=== PATIENT | male | born 1955 | race Caucasian/White ===

== ENCOUNTER 2016-09-20 12:12 | Emergency (ER) | payer BC ==
[2016-09-20] MEDS ORDERED: NS 0.9% 1000 ML* 1,000 ML IV ONE (13:05)
[2016-09-20 13:13] LABS: Hematocrit 39 % (42-52); Hemoglobin 13.2 g/dl (14.0-18.0); Mean Corpuscular HGB Conc 34 g/dl (31-36); Mean Corpuscular Hemoglobin 31 pg (27-31); Mean Corpuscular Volume 91 fL (80-94); Mean Platelet Volume 8 um3 (7.4-10.4); Red Blood Count 4.31 10^6/ul (4.0-5.4); Red Cell Distribution Width 14 % (10.5-15); White Blood Count 12.2 10^3/ul (3.5-10.8)
[2016-09-20 13:14] LABS: Comments Flag Yes
[2016-09-20 13:15] LABS: Add Diff/Slide Review? Slide Review Added
--- NOTE | 2016-09-20 13:19 | RAD ---
INDICATION: Erythema and pain at the right foot and distal leg COMPARISON: None. TECHNIQUE: 3 views of the right ankle were obtained. FINDINGS: The bones are normal alignment. Joint spaces appear maintained. Degenerative changes include enthesophyte formation at the calcaneal tubercle at the origin of the plantar fascia. No fracture is seen. IMPRESSION: NO RADIOGRAPHICALLY APPARENT ACUTE ABNORMALITY OF THE RIGHT LOWER LEG OR ANKLE. If the patient's symptoms persist, follow-up imaging is recommended.
--- NOTE | 2016-09-20 13:27 | ED ---
Lower Extremity - HPI Summary HPI Summary: 61 male presents with complaints of redness, swelling, and pain of his right lower extremity that he noticed Thursday 09/14 however got worse this past Wednesday. Patient states he has been unable to comfortabley walk due to the pain. It has become hard for him to take more than 5 steps. He also complains of pain when hanging his leg over a chair or bed. He Denies any PMHx besides thyroidectomy and walking pneumonia ~1 month ago.. He denies any recent trauma or injury to his ankle. He has never had this before. He has been battling an infection on the bottom of his feet with his PCP that itches so bad he has scabbed wounds on he bottom of his feet. He does not know he name of the medication he was using on his feet. He is unsure if that caused an infection. Admits to recent travel back and forth to [place] in a car twice over this past Wednesday and Wednesday. Denies prolonged bed rest and prior DVT. Resting makes the pain better. He tried taking ibuprofen without any relief. Denies fever/chills. - History of Current Complaint Chief Complaint: EDExtremityLower Stated Complaint: RT ANKLE SWELLING/RED Time Seen by Provider: 09/20/16 12:39 Hx Obtained From: Patient Onset of Pain: Days Severity Initially: Mild Severity Currently: Mild Pain Intensity: 2 Pain Scale Used: 0-10 Numeric Timing: Intermittent Location: Is Discrete @ - left lower extremity Character Of Pain: Aching, Spasmodic, Burning Associated Signs And Symptoms: Positive: Swelling, Redness Aggravating Factor(s): Standing, Ambulation, Movement Alleviating Factor(s): Rest, Elevation Able to Bear Weight: Yes - Risk Factors Gout Risk Factors: Age Over 40 DVT Risk Factors: Recent Travel - Allergies/Home Medications Allergies/Adverse Reactions: Allergies Allergy/AdvReac Type Severity Reaction Status Date / Time No Known Allergies Allergy Verified 09/20/16 12:18 Home Medications: Home Medications Loratadine [Claritin 5 MG CHEW] 1 tab PO DAILY 09/20/16 [History Confirmed 09/20] PMH/Surg Hx/FS Hx/Imm Hx Endocrine/Hematology History: Reports: Hx Thyroid Disease Denies: Hx Diabetes Cardiovascular History: Denies: Hx Hypertension Respiratory History: Denies: Hx Asthma - Cancer History Cancer Type, Location and Year: thyriod - Surgical History Surgery Procedure, Year, and Place: tonsillectomy, corrective eye surgery - Immunization History Immunizations Up to Date: Yes Infectious Disease History: No Infectious Disease History: Denies: Traveled Outside the [place] in Last 30 Days - Family History Known Family History: Positive: Cardiac Disease - Social History Alcohol Use: Daily Alcohol Amount: 5 beers a day Substance Use Type: Reports: None Smoking Status (MU): Never Smoked Tobacco Review of Systems Constitutional: Negative Eyes: Negative ENT: Negative Cardiovascular: Negative Respiratory: Negative Gastrointestinal: Negative Genitourinary: Negative Positive: Arthralgia, Myalgia, Edema - LLE Positive: Rash Neurological: Negative Psychological: Normal All Other Systems Reviewed And Are Negative: Yes Physical Exam Triage Information Reviewed: Yes Vital Signs On Initial Exam: Initial Vitals Temp Pulse Resp BP Pulse Ox 99.5 F 105 16 143/81 100 09/20/16 12:13 09/20/16 12:13 09/20/16 12:13 09/20/16 12:13 09/20/16 12:13 tachycardia, fever noted. Vital Signs Reviewed: Yes Appearance: Positive: Well-Appearing, No Pain Distress, Well-Nourished Skin: Positive: Warm, Skin Color Reflects Adequate Perfusion - < 2 second cap refill, Dry, Erythema @ - LLE and edematous, no discharge, skin is hot to touch and tight., Other - scabbed over wounds on bilateral bottom of feet. dry and excoriated.. Negative: Cold, Numb, Cyanosis @, Pale Head/Face: Positive: Normal Head/Face Inspection Eyes: Positive: Normal, Conjunctiva Clear ENT: Positive: Normal ENT inspection, Hearing grossly normal Neck: Positive: Supple, Nontender, No Lymphadenopathy Respiratory/Lung Sounds: Positive: Clear to Auscultation, Breath Sounds Present Cardiovascular: Positive: Normal, RRR, Pulses are Symmetrical in both Upper and Lower Extremities - 2+ pedal pulses Abdomen Description: Positive: Nontender Bowel Sounds: Positive: Present Musculoskeletal: Positive: Normal, Strength/ROM Intact - sensation intact., Pain @ - LLE, Edema Right. Negative: Limited @, Interruption @ Neurological: Positive: Normal, Sensory/Motor Intact, Alert, Oriented to Person Place, Time, CN Intact II-III, Reflexes Intact, NV Bundle Intact Distally, Normal Gait Psychiatric: Positive: Normal, Affect/Mood Appropriate Diagnostics - Vital Signs Vital Signs Temp Pulse Resp BP Pulse Ox 09/20/16 12:13 99.5 F 105 16 143/81 100 - Laboratory Lab Results: Lab Results 09/20/16 Range/Units 13:04 WBC 12.2 H (3.5-10.8) 10^3/ul RBC 4.31 (4.0-5.4) 10^6/ul Hgb 13.2 L (14.0-18.0) g/dl Hct 39 L (42-52) % MCV 91 (80-94) fL MCH 31 (27-31) pg MCHC 34 (31-36) g/dl RDW 14 (10.5-15) % Plt Count 324 (150-450) 10^3/ul MPV 8 (7.4-10.4) um3 Neut % (Auto) 69.9 (38-83) % Lymph % (Auto) 11.7 L (25-47) % Cascade % (Auto) 14.6 H (1-9) % Eos % (Auto) 2.7 (0-6) % Baso % (Auto) 1.1 (0-2) % Absolute Neuts (auto) 8.5 H (1.5-7.7) 10^3/ul Absolute Lymphs (auto) 1.4 (1.0-4.8) 10^3/ul Absolute Monos (auto) 1.8 H (0-0.8) 10^3/ul Absolute Eos (auto) 0.3 (0-0.6) 10^3/ul Absolute Basos (auto) 0.1 (0-0.2) 10^3/ul Absolute Nucleated RBC 0 10^3/ul Nucleated RBC % 0 Result Diagrams: 09/20/16 13:04 09/20/16 13:04 Lab Statement: Any lab studies that have been ordered have been reviewed, and results considered in the medical decision making process. - Radiology right ankle Xray Interpretation: No Acute Changes - NO RADIOGRAPHICALLY APPARENT ACUTE ABNORMALITY OF THE RIGHT LOWER LEG OR ANKLE. Radiology Interpretation Completed By: Radiologist - Ultrasound No standard instances Ultrasound Interpretation: No Acute Changes - No sonographic evidence of deep vein thrombosis. Ultrasound Interpretation Completed By: Radiologist Re-Evaluation - Re-Evaluation First Eval Re-Evaluation Time: 14:30 Change: Unchanged - patient was still feeling fine without pain and is in agreement with plan Lower Extremity Course/Dx - Course Course Of Treatment: Was not in pain while laying in bed and denied pain management at this time. Labs obtained, slight WBC elevation. Fluids given. U/S and Xray of RLE negative. Appears to be suffering from cellulitis with chronic plantar foot wounds b/l being the possible source of infection. Given dose of Ancef while in ED. Continue keflex antibiotic at home x 10 days. Aware of worsening signs and symptoms. - Diagnoses Differential Diagnosis/HQI/PQRI: Positive: Cellulitis, DVT, Gout, Infection, Phlebitis, Septic Arthritis, Sprain, Strain Provider Diagnoses: Cellulitis of right lower extremity - Physician Notifications Discussed Care of Patient With: Dr Alvarenga Discharge - Discharge Plan Condition: Stable Disposition: HOME Prescriptions: Cephalexin CAP* [Keflex CAP*] 500 mg PO QID #40 cap Patient Education Materials: Cellulitis (ED) Referrals: Session Troy REIS [Primary Care Provider] - Additional Instructions: Take prescribed antibiotics starting tomorrow for the next 10 days. Recommend eating kyrgyz yogurt or taking probiotic in between antibiotic doses. Ibuprofen or Aleve to help with pain. If redness, swelling or pain increases or fever/chills is over 104F after 48 hours of taking medications please return or seek medical attention promptly. You should see some improvement within 48 hours. Keep area clean and dry. Discuss with your PCP and podiatry about foot condition to prevent future infection. Drink plenty of fluids.
[2016-09-20 13:28] LABS: BUN/Creatinine Ratio 21.6 (8-20); Calcium 9.3 mg/dL (8.6-10.3); EGFR African American 138.8 (>60); EGFR Non-African American 107.9 (>60); Potassium 4.4 mmol/L (3.5-5.0)
--- NOTE | 2016-09-20 14:14 | RAD ---
HISTORY: Right lower extremity pain and swelling TECHNIQUE: Multiple transverse and longitudinal ultrasound images were obtained of the veins of the right lower extremity using grayscale, color Doppler, and spectral Doppler imaging with and without compression and with augmentation. FINDINGS: VEINS: The common femoral vein, deep femoral vein, femoral vein and popliteal vein are compressible throughout their course, with normal flow on color Doppler imaging and normal response to augmentation on spectral Doppler imaging. SOFT TISSUES: Grossly normal. No large popliteal fossa cyst was identified. IMPRESSION: No sonographic evidence of deep vein thrombosis.
[2016-09-20] MEDS ORDERED: ceFAZolin 1 GM in Dextrose (*) 1 GM/50 ML BAG IVPB ONE (14:37)
[2016-09-20] MEDS ORDERED: Acetaminophen TAB* 325 MG PO ONE (15:17)
[2016-09-20 16:18] VITALS: BP 133/76
== END 2016-09-20 15:30 | disposition home or self-care (01) ==
LOC: ED 12:12
DX: L03.115 Cellulitis of right lower limb (principal)
CPT/HCPCS: 36415; 80048; 83605; 85025; 99284; A9270-GY; J0690

== ENCOUNTER 2019-09-02 10:16 | Observation (INO) | payer SELFPAY ==
--- NOTE | 2019-09-02 10:35 | ED ---
Respiratory - HPI Summary HPI Summary: 63 year old M with hx pneumonia arriving via private car to [facility] complains of increasing shortness of breath and cough worse with exertion since Jul 2019. Patient started feeling sick jul. He has been going to his primary care provider. Dx bronchitis and walking pneumonia 08/14. Prescribed 10 day course of antibiotics after which he was not feeling any better. He went back to his primary care provider who prescribed another course of antibiotics which he finished 2 days ago. He is still not feeling better. He is unable to take a full breath. Patient reports light headedness and non-radiating chest pain aggravated by palpation. Patient denies wheezing, pain or swelling in BLE, abdominal pain. He had CXR done earlier this week done and hasn't heard about results yet. He also had EKG done earlier this week which was normal. The patient rates the pain 4/10 in severity. Symptoms alleviated by nothing. Medications reviewed. No hx asthma, COPD, cardiac, DVT, PE. Patient is a non- smoker. He is around his girlfriend who smokes a lot. - History of Current Complaint Chief Complaint: EDUpperRespComplaint Stated Complaint: SOB/BREATHING PROBLEMS PER PT Time Seen by Provider: 09/02/19 10:26 Hx Obtained From: Patient Onset/Duration: Lasting Weeks - Jul 2019, Still Present Timing: Constant Current Severity: Mild Pain Intensity: 4 Aggravating Factor(s): Exertion Alleviating Factor(s): Nothing - Allergy/Home Medications Allergies/Adverse Reactions: Allergies Allergy/AdvReac Type Severity Reaction Status Date / Time No Known Allergies Allergy Verified 09/20/16 12:18 Home Medications: Home Medications Levothyroxine 150 mcg PO DAILY 07/05/14 [History Confirmed 09/02/19] PMH/Surg Hx/FS Hx/Imm Hx Endocrine/Hematology History: Reports: Hx Thyroid Disease Denies: Hx Diabetes Cardiovascular History: Denies: Hx Deep Vein Thrombosis, Hx Hypertension Respiratory History: Reports: Hx Pneumonia Denies: Hx Asthma, Hx Chronic Obstructive Pulmonary Disease (COPD), Hx Pulmonary Edema - Cancer History Cancer Type, Location and Year: thyriod - Surgical History Surgery Procedure, Year, and Place: tonsillectomy, corrective eye surgery Infectious Disease History: No Infectious Disease History: Denies: Traveled Outside the US in Last 30 Days - Family History Known Family History: Positive: Cardiac Disease - Social History Alcohol Use: Daily Alcohol Amount: 5 beers a day Substance Use Type: Reports: None Hx Tobacco Use: No Smoking Status (MU): Never Smoked Tobacco Review of Systems Positive: Chest Pain Respiratory: Negative - wheezing Positive: Shortness Of Breath, Cough Negative: Abdominal Pain Musculoskeletal: Negative - pain or swelling in BLE Neurological/Mental Status: Other - light headedness All Other Systems Reviewed And Are Negative: Yes Physical Exam - Summary Physical Exam Summary: Constitutional: Well-developed, Well-nourished, Alert. (-) Distressed Skin: Warm, Dry HENT: Normocephalic; Atraumatic Eyes: Conjunctiva normal Neck: Musculoskeletal ROM normal neck. (-) JVD, (-) Stridor, (-) Tracheal deviation Cardio: Rhythm regular, rate normal, Heart sounds normal; Intact distal pulses; The pedal pulses are 2+ and symmetric. Radial pulses are 2+ and symmetric. (-) Murmur Pulmonary/Chest wall: Effort normal. (-) Respiratory distress, (-) Wheezes, (-) Rales Abd: Soft, (-) tenderness, (-) Distension, (-) Guarding, (-) Rebound Musculoskeletal: (-) Edema Lymph: (-) Cervical adenopathy Neuro: Alert, Oriented x3 Psych: Mood and affect Normal Triage Information Reviewed: Yes Vital Signs On Initial Exam: Initial Vitals Temp Pulse Resp BP Pulse Ox 98.7 F 94 20 126/91 92 09/02/19 10:19 09/02/19 10:19 09/02/19 10:19 09/02/19 10:19 09/02/19 10:19 Vital Signs Reviewed: Yes Procedures - Sedation Patient Received Moderate/Deep Sedation with Procedure: No Diagnostics - Vital Signs Vital Signs Temp Pulse Resp BP Pulse Ox 09/02/19 10:19 98.7 F 94 20 126/91 92 - Laboratory Result Diagrams: 09/02/19 10:46 09/02/19 10:46 Lab Statement: Any lab studies that have been ordered have been reviewed, and results considered in the medical decision making process. - Radiology CXR Radiology Interpretation Completed By: Radiologist - IMPRESSION: #. Suboptimal inspiration with resulting crowding of the pulmonary markings based on comparison with the prior exam. No compelling evidence for pneumonia. ED physician has reviewed this imaging report. - CT CHEST CT Interpretation Completed By: Radiologist - IMPRESSION: #. The constellation of findings favors mild bronchopneumonia. #.Upper normal 1.0 cm short axis precarinal lymph node and similar RIGHT suprahilar lymph node enlargement compared with the 2015 CT. ED physician has reviewed this imaging report. - EKG 1043 Cardiac Rate: NL - 84 BPM EKG Rhythm: Sinus Rhythm Summary of EKG Findings: No ischemic changes. ED physician has reviewed and interpreted this EKG. Disposition - Course Course Of Treatment: 63 y/o M with recent dx bronchitis and pneumonia presents with increasing shortness of breath and cough worse with exertion since mid Jul 2019. He has been going to his primary care provider who has prescribed him 2 courses of antibiotics. Patient isn't feeling better and is unable to take a full breath. He reports light headedness and non-radiating chest pain aggravated by palpation. He had CXR and EKG done earlier this week. Patient is a non-smoker. He is around his girlfriend who smokes a lot. Physical exam unremarkable. Bloodwork results with no significant abnormalities except for WBC 15.7, RBC 4.07, Hgb 13.0, MCH 32, platelet 482, absolute neuts 12.9, absolute lymphs 0.9, absolute monos 1.2, ALT 53, alkaline phosphatase 117. An EKG shows NSR 84 BPM and no ischemic changes. CXR shows Suboptimal inspiration with resulting crowding of the pulmonary markings based on comparison with the prior exam. No compelling evidence for pneumonia. Chest CT shows #. The constellation of findings favors mild bronchopneumonia. #.Upper normal 1.0 cm short axis precarinal lymph node and similar RIGHT suprahilar lymph node enlargement compared with the 2015 CT. In the ED course, the patient was given Duoneb, ceftriaxone. Spoke to Dr. Hurtado. She agrees to admit patient. - Diagnoses Provider Diagnoses: Bronchopneumonia, Hypoxia - Physician Notifications Discussed Care Of Patient With: Ashlyn Hurtado Time Discussed With Above Provider: 13:10 Instructed by Provider To: Admit As Inpatient Discharge ED - Sign-Out/Discharge Documenting (check all that apply): Patient Departure - Discharge Plan Condition: Stable Disposition: ADMITTED TO [facility] Referrals: Troy Torres PA [Primary Care Provider] - - Billing Disposition and Condition Condition: STABLE Disposition: Admitted to [facility] - Attestation Statements Document Initiated by Mikeibjade: Yes Documenting Scribe: Gini Romano Provider For Whom [place] is Documenting (Include Credential): Donato Ronquillo DO Scribe Attestation: IGini, scribed for Donato Ronquillo DO on 09/02/19 at 1347. Scribe Documentation Reviewed: Yes Provider Attestation: The documentation as recorded by the mikeibGini hansen accurately reflects the service I personally performed and the decisions made by , Donato Ronquillo DO Status of Scribe Document: Viewed
[2019-09-02] MEDS ORDERED: Albuterol/Ipratropium NEB.SOL* Albuterol 2.5 MG/Ipratropium 0.5 MG 3 ML INH ONE (10:38)
[2019-09-02 10:54] LABS: ABS Basophils 0.1 10^3/ul (0-0.2); ABS Eosinophils 0.5 10^3/ul (0-0.6); ABS Lymphocytes 0.9 10^3/ul (1.0-4.8); ABS Monocytes 1.2 10^3/ul (0-0.8); ABS Neutrophils 12.9 10^3/ul (1.5-7.7); Eosinophil % 3.2 %; Hematocrit 38 % (42-52); Lymphocyte % 6.1 %; Mean Corpuscular HGB Conc 34 g/dL (31-36); Mean Corpuscular Hemoglobin 32 pg (27-31); Mean Corpuscular Volume 94 fL (80-94); Mean Platelet Volume 7.8 fL (7.4-10.4); Platelet Count 482 10^3/uL (150-450); Red Blood Count 4.07 10^6 /uL (4.18-5.48); Red Cell Distribution Width 14 % (10-15); White Blood Count 15.7 10^3/uL (3.5-10.8)
[2019-09-02 11:12] LABS: Albumin/Globulin Ratio 1.3 (1-3); BUN/Creatinine Ratio 14.3 (8-20); Calcium 9.4 mg/dL (8.6-10.3); EGFR African American 102.1 (>60); EGFR Non-African American 84.4 (>60); Globulin 3.2 g/dL (2-4); Potassium 4.3 mmol/L (3.5-5.0); Total Bilirubin 0.6 mg/dL (0.2-1.0); Total Protein 7.2 g/dL (6.4-8.9)
[2019-09-02 11:14] LABS: Troponin I 0.01 ng/mL (<0.03)
[2019-09-02] MEDS ORDERED: cefTRIAXone(*) 1 GM in NS 0.9% 50 ML* 50 ML IVPB ONE (11:25)
[2019-09-02] MEDS ORDERED: Iohexol 300* (CONTRAST) 10 ML SDV IV ONE (11:54)
[2019-09-02] MEDS ORDERED: Ondansetron INJ* 2 MG/ML VIAL IV PRN (13:11)
[2019-09-02] MEDS ORDERED: Acetaminophen TAB* 325 MG PO PRN (13:11)
[2019-09-02] MEDS ORDERED: Benzonatate CAP* 100 MG PO PRN (13:11)
[2019-09-02] MEDS ORDERED: Albuterol/Ipratropium NEB.SOL* Albuterol 2.5 MG/Ipratropium 0.5 MG 3 ML INH PRN (13:17)
[2019-09-02] MEDS: Levofloxacin 750 MG IVPREMIX(* 750 MG/150 ML BAG IVPB SCH (13:29)
[2019-09-02 14:01] LABS: TSH (Thyroid Stimulating Horm) 0.02 mcIU/mL (0.34-5.60)
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
[2019-09-02] MEDS: Enoxaparin(*) 40 MG/0.4 ML SYR SUBCUT SCH (16:23)
[2019-09-02] MEDS: guaiFENesin ER TAB 600 MG PO SCH (20:08)
[2019-09-02] MEDS ORDERED: Melatonin 3 MG TAB PO PRN (21:00)
[2019-09-03] MEDS ORDERED: Levothyroxine TAB* 125 MCG TAB PO SCH (06:00)
[2019-09-03] MEDS ORDERED: Levothyroxine TAB* 150 MCG TAB PO SCH (06:00)
[2019-09-03 06:06] LABS: ABS Eosinophils 0.7 10^3/ul (0-0.6); ABS Monocytes 0.9 10^3/ul (0-0.8); ABS Neutrophils 5.8 10^3/ul (1.5-7.7); Eosinophil % 8.6 %; Hematocrit 34 % (42-52); Hemoglobin 11.7 g/dL (14.0-18.0); Lymphocyte % 11.4 %; Mean Corpuscular HGB Conc 34 g/dL (31-36); Mean Corpuscular Hemoglobin 32 pg (27-31); Mean Corpuscular Volume 93 fL (80-94); Platelet Count 406 10^3/uL (150-450); Red Blood Count 3.67 10^6 /uL (4.18-5.48); Red Cell Distribution Width 14 % (10-15); White Blood Count 8.5 10^3/uL (3.5-10.8)
[2019-09-03 06:21] LABS: C Reactive Protein 121.07 mg/L (<8.01); Calcium 8.7 mg/dL (8.6-10.3); EGFR African American 116.8 (>60); EGFR Non-African American 96.6 (>60)
[2019-09-03] MEDS: guaiFENesin ER TAB 600 MG PO SCH ×2 (07:19→20:10)
[2019-09-03 07:51] LABS: Free T4 1.3 ng/dL (0.61-1.12)
[2019-09-03] MEDS ORDERED: NS 0.9% 1000 ML** 1,000 ML IV SCH (08:30)
--- NOTE | 2019-09-03 08:49 | PN ---
Subjective Date of Service: 09/03/19 Interval History: Patient is feeling better than he did yesterday. Still mildly short of breath at rest. Frequently coughing, bringing up thick dark brown sputum. Using incentive spirometer. Titrated from 5 to 3.5L via nasal cannula. Reports drinking 4-6 alcoholic drinks a day. Denies lightheadedness, dizziness, chest pain, palpitations, abdominal pain, nausea, vomiting, issues moving bowel or bladder. Family History: Unchanged from Admission Social History: Unchanged from Admission Past Medical History: Unchanged from Admission Objective Active Medications: Acetaminophen (Tylenol Tab*) 650 mg PO Q6H PRN PRN Reason: MILD PAIN or TEMP > 100.4 Albuterol/Ipratropium (Duoneb (Albuterol 2.5 Mg/Ipratropium 0.5 Mg)) 1 neb INH Q6H PRN PRN Reason: SOB/WHEEZING Benzonatate (Tessalon Cap*) 100 mg PO BID PRN PRN Reason: COUGH Last Admin: 09/03/19 06:00 Dose: 100 mg Enoxaparin Sodium (Lovenox(*)) 40 mg SUBCUT Q24H [facility] Last Admin: 09/02/19 16:23 Dose: 40 mg Guaifenesin (Mucinex*) 1,200 mg PO BID [facility] Last Admin: 09/03/19 07:19 Dose: 1,200 mg Levofloxacin/Dextrose (Levaquin 750 Mg Ivpremix(*)) 750 mg in 150 mls @ 100 mls /hr IVPB Q24H [facility]; Protocol Last Admin: 09/02/19 13:29 Dose: 100 mls/hr Sodium Chloride (Ns 0.9% 1000 Ml) 1,000 mls @ 100 mls/hr IV PER RATE [facility] Stop: 09/03/19 18:29 Influenza Virus Vaccine (Fluarix Quad [id number] Syr) 0.5 ml IM .ONCE ONE Stop: 09/03/19 09:01 Last Admin: 09/03/19 07:19 Dose: 0.5 ml Levothyroxine Sodium (Synthroid Tab*) 100 mcg PO 0600 [facility] Melatonin (Melatonin) 3 mg PO BEDTIME PRN PRN Reason: INSOMNIA Last Admin: 09/02/19 20:08 Dose: 3 mg Ondansetron HCl (Zofran Inj*) 4 mg IV Q6H PRN PRN Reason: NAUSEA Vital Signs - 8 hr 09/03/19 09/03/19 03:15 07:19 Temperature 99.7 F 99.4 F Pulse Rate 78 82 Respiratory 16 20 Rate Blood Pressure 92/55 102/62 (mmHg) O2 Sat by Pulse 95 96 Oximetry Oxygen Devices in Use Now: Nasal Cannula - 3.5L, OxyMask Appearance: This is a well developed gentleman seen sitting up in bed, no acute distress. Eyes: No Scleral Icterus, PERRLA Ears/Nose/Mouth/Throat: NL Teeth, Lips, Gums, Clear Oropharnyx, Mucous Membranes Moist Neck: NL Appearance and Movements; NL JVP, Trachea Midline Respiratory: Symmetrical Chest Expansion and Respiratory Effort, - - Fine crackles to right lower and middle lobes. Cardiovascular: NL Sounds; No Murmurs; No JVD, RRR, No Edema Abdominal: NL Sounds; No Tenderness; No Distention Lymphatic: No Cervical Adenopathy Extremities: No Edema, No Clubbing, Cyanosis Skin: No Rash or Ulcers, No Nodules or Sclerosis Neurological: Alert and Oriented x 3 Lines/Tubes/Other Access: Clean, Dry and Intact Peripheral IV Result Diagrams: 09/03/19 05:25 09/03/19 05:25 Microbiology and Other Data: Microbiology 09/02/19 18:00 Gram Stain - Final Sputum 09/02/19 18:00 Legionella Urinary Antigen - Final Urine Negative Legionella Antigen Streptococcus pneumoniae Ag Screen - Final Negative S. pneumo Antigen Assess/Plan/Problems-Billing Assessment: This is a 63yo male with a past medical history of thyroid cancer, s/p thyroidectomy, and ETOH abuse who was admitted 09/02/19 for acute hypoxic respiratory failure secondary to bacerial bronchopneumonia. - Patient Problems (1) Acute respiratory failure with hypoxia Current Visit: Yes Status: Acute Code(s): J96.01 - ACUTE RESPIRATORY FAILURE WITH HYPOXIA SNOMED Code(s): 23044242 Comment: -Originally was on 5L via face mask. Was able to be tirated to 3.5L via nasal cannula this morning. Continue to titrate oxygen to keep sats above 90 %. -This is secondary to bronchopneumonia. (2) Sepsis Current Visit: Yes Status: Acute Comment: -resolved. (3) Bronchopneumonia Current Visit: Yes Status: Acute Code(s): J18.0 - BRONCHOPNEUMONIA, UNSPECIFIED ORGANISM SNOMED Code(s): 837653928 Comment: -Awaiting sputum culture. Smear shows gram positive and negative coccobacilli. -Continue levaquin. Recheck labs in am. No tendon pain. (4) Hypothyroid Current Visit: Yes Status: Acute Code(s): E03.9 - HYPOTHYROIDISM, UNSPECIFIED SNOMED Code(s): 82104696 Comment: -Labs revealed hyperthyroidism. Home dosage of levothyroxine was 150mcg, which has been decreased to 125mcg. Appears to be fidgety and slightly anxious but otherwise asymptomatic. (5) ETOH abuse Current Visit: Yes Status: Acute Code(s): F10.10 - ALCOHOL ABUSE, UNCOMPLICATED SNOMED Code(s): 90469990 Comment: -Drinks 4-6 alcoholic drinks daily. Placed on WA protocol with javi thiamine, folic acid and multivitamin. (6) Anemia Current Visit: Yes Status: Acute Code(s): D64.9 - ANEMIA, UNSPECIFIED SNOMED Code(s): 247414664 Comment: -Unsure of origin at this time, though I suspect it is related to his drinking. He reports waking up many morning with a nosebleed, though it is only a couple of spots each time. Pierre never soaked a kleenex. -Ordered Vit B12, folate and iron studies. (7) DVT prophylaxis Current Visit: Yes Status: Acute Code(s): Z29.9 - ENCOUNTER FOR PROPHYLACTIC MEASURES, UNSPECIFIED SNOMED Code(s): 407331182 Comment: -Continue lovenox. (8) Full code status Current Visit: Yes Status: Acute Code(s): Z78.9 - OTHER SPECIFIED HEALTH STATUS SNOMED Code(s): 555349239 Status and Disposition: Condition: fair Dispo: Admit OBV to 4N Attending: Anabel Forrester
[2019-09-03] MEDS ORDERED: Thiamine INJ* 100 MG/ML 2 ML VIAL IM ONE (08:52)
[2019-09-03] MEDS ORDERED: Influenza VAC *QUAD* 2019-20* 0.5 ML SYRINGE IM ONE (09:00)
[2019-09-03] MEDS ORDERED: LORazepam TAB(*) 1 MG PO SCH (09:00)
[2019-09-03] MEDS: Multivitamins/Minerals TAB PO SCH (09:22)
[2019-09-03] MEDS: Folic Acid TAB* 1 MG PO SCH (09:22)
[2019-09-03 09:39] LABS: % Iron Saturation 25 % (15-55); Iron 64 ug/dL (50-212); Total Iron Binding Capacity 256 mcg/dL (250-450); Transferrin 183 mg/dL (203-362)
[2019-09-03 10:01] LABS: Ferritin 324.5 ng/mL (24-336)
[2019-09-03 10:05] LABS: Folate 14.38 ng/mL (>3.99)
[2019-09-03] MEDS: Levofloxacin 750 MG IVPREMIX(* 750 MG/150 ML BAG IVPB SCH (13:29)
[2019-09-03] MEDS: Enoxaparin(*) 40 MG/0.4 ML SYR SUBCUT SCH (13:31)
[2019-09-03] MEDS ORDERED: NS 0.9% 1000 ML** 1,000 ML IV ONE (15:58)
[2019-09-04] MEDS ORDERED: Levothyroxine TAB* 125 MCG TAB PO SCH (06:00)
[2019-09-04] MEDS ORDERED: Levothyroxine TAB* 100 MCG TAB PO SCH (06:00)
[2019-09-04 06:35] LABS: ABS Eosinophils 0.7 10^3/ul (0-0.6); ABS Monocytes 1.1 10^3/ul (0-0.8); ABS Neutrophils 6.5 10^3/ul (1.5-7.7); Eosinophil % 7.4 %; Hematocrit 35 % (42-52); Lymphocyte % 10.5 %; Mean Corpuscular HGB Conc 34 g/dL (31-36); Mean Corpuscular Hemoglobin 32 pg (27-31); Mean Corpuscular Volume 92 fL (80-94); Mean Platelet Volume 7.6 fL (7.4-10.4); Platelet Count 411 10^3/uL (150-450); Red Blood Count 3.77 10^6 /uL (4.18-5.48); Red Cell Distribution Width 14 % (10-15); White Blood Count 9.3 10^3/uL (3.5-10.8)
[2019-09-04 06:53] LABS: BUN/Creatinine Ratio 14.5 (8-20); Calcium 8.8 mg/dL (8.6-10.3); EGFR African American 125.8 (>60); EGFR Non-African American 103.9 (>60); Potassium 4.1 mmol/L (3.5-5.0)
[2019-09-04] MEDS ORDERED: Thiamine TAB* 100 MG TAB PO SCH (09:00)
[2019-09-04] MEDS: Folic Acid TAB* 1 MG PO SCH (10:08)
[2019-09-04] MEDS: Multivitamins/Minerals TAB PO SCH (10:08)
[2019-09-04] MEDS: guaiFENesin ER TAB 600 MG PO SCH (10:08)
[2019-09-04 11:45] VITALS: BP 118/76
[2019-09-04] MEDS ORDERED: Levofloxacin TAB* 750 MG PO ONE (12:00)
--- NOTE | 2019-09-05 07:15 | DS ---
CC: CHATO Hinton * DISCHARGE SUMMARY: DATE OF ADMISSION: 09/02/19 DATE OF DISCHARGE: 09/04/19 PRIMARY CARE PROVIDER: CHATO Hinton ATTENDING PHYSICIAN: Dr. Anabel Forrester * (dictated by MARINO Franklin). PRIMARY DIAGNOSES: 1. Acute respiratory failure with hypoxia, resolved. 2. Sepsis, resolved. 3. Pneumonia. 4. Elevated free T4. 5. Anemia suspected to be due to alcohol abuse. SECONDARY DIAGNOSES: 1. Hypothyroidism. 2. Thyroid cancer, status post thyroidectomy resulting in hypothyroidism. STUDIES WHILE IN THE HOSPITAL: 1. Two view chest x-ray, impression: Suboptimal inspiration with resultant crowding of the pulmonary markings based on comparison with the prior exam. No compelling evidence for pneumonia. 2. CT chest with contrast, impression: The constellation of findings favors mild bronchopneumonia, upper normal 1.0 cm short axis, precarinal lymph node and similar right suprahilar lymph node enlargement compared with [address] CT[address] DISCHARGE MEDICATIONS: Home medications: None. New home medications: 1. Benzonatate 100 mg p.o. b.i.d. p.r.n. cough. 2. Folic acid 1 mg p.o. daily. 3. Guaifenesin 1200 mg p.o. b.i.d. p.r.n. chest congestion. 4. Levofloxacin 750 mg p.o. daily x7 days (total of 10 days of treatment). 5. Melatonin 3 mg p.o. at bedtime p.r.n. 6. Multivitamin/minerals 1 tab p.o. daily. 7. Thiamine 100 mg p.o. daily. Changed home medications: 1. Levothyroxine decreased to 125 mcg p.o. daily. HISTORY OF PRESENT ILLNESS/HOSPITAL COURSE: Mr. Delgado is a 63-year-old male with a past medical history of hypothyroidism, status post thyroidectomy due to cancer, who presented to the ER on 09/02/19 with complaints of shortness of breath for approximately 3 weeks. He reports that he had seen his primary care provider and was prescribed amoxicillin, azithromycin and prednisone taper, none of which have resolved his problems. A chest x-ray was unremarkable, but a CT of the chest revealed bronchopneumonia with bilateral lower lobe ground- glass opacities. The patient was admitted to the ER and placed on Levaquin. It is important to note that at admission, the patient met sepsis criteria with leukocytosis and tachycardia. Again, the patient was treated with Levaquin daily. He initially required oxygen and was started on 5 L of oxygen, but eventually weaned down to home oxygen. He did improve throughout his stay. At rest and with ambulation, the patient's oxygen saturation remained intact and he denied dyspnea on exertion. By the time of discharge, the patient reports that he is feeling well and is eager for discharge home. Recommendations were made to continue Levaquin for a total of 10 days of antibiotic therapy. The patient was noted to have a low TSH at admission, which prompted free T4 analysis, which was noted to be somewhat elevated at 1.30. The patient's home dose of levothyroxine 150 mcg was decreased to 125 mcg. He should follow with his primary care provider for further adjustments with recommendation to repeat TSH and free T4 in 4 to 6 weeks. The patient also had a mild anemia throughout his stay. Iron studies, B12 and folate were obtained and were all relatively unremarkable. He has a normocytic anemia suspected to be due to alcoholic use, although the patient should follow up with his primary care provider for further recommendation and continued monitoring. At the time of discharge, the patient denies chest pain, shortness of breath, wheeze, fever, chills. He denies dyspnea on exertion or lower extremity edema. He does continue to have a productive cough, but notes that this is decreased. He denies abdominal pain, nausea, vomiting, diarrhea, constipation, myalgias, arthralgias. Mr. Delgado is stable for discharge home. PHYSICAL EXAMINATION: Vital Signs: Temperature 98.3 temporal, heart rate 90, respiratory rate 21, oxygen saturation 93% on room air, blood pressure 118/76. General: Mr. Delgado is a well-developed, well-nourished, middle-aged white male, who is sitting at the edge of bed, eating breakfast. He appears to be in no acute distress. He is pleasant, cooperative, and appropriate. He is breathing comfortably on room air. HEENT: PERRL. EOMI. Nonicteric sclerae. Hearing is grossly intact. Oral mucous membranes are moist. There are no lesions. Oropharynx is clear. Tongue is at midline. Palate elevates symmetrically. No cervical lymphadenopathy. Thyroid is nonpalpable. Cardiovascular: Regular rate and rhythm. S1, S2 present. No murmurs, rubs, clicks, or gallops. There is no JVD or peripheral edema. Pulmonary: Symmetrical chest expansion without use of accessory muscles. Lungs are clear to auscultation bilaterally without rhonchi, wheeze, or rales. Abdomen: Bowel sounds in all quadrants, soft, nontender to palpation. Neuro: The patient is awake. He is alert and oriented x3. Cranial nerves II through XII are grossly intact. He is able to move all of his extremities with a motor strength to 5/5 bilaterally in upper and lower extremities. Skin: Clean, dry and intact without rash. DISCHARGE PLAN: Mr. Delgado will be discharged to home. CONDITION: Good. DIET: Resume home diet. ACTIVITY: As tolerated. MEDICATIONS: 1. Levaquin 750 mg p.o. daily at 1330 total of 10 days. 2. Continue Tessalon Perles for cough, Mucinex for chest congestion as needed. 3. Continue folic acid, thiamine, and multivitamin. 4. Levothyroxine dose has been decreased, please discard old dose and pickup new dose from your pharmacy. EDUCATION: 1. Follow up with primary care provider in 4 to 7 days, discuss recent hospitalization. 2. Recommend repeat TSH, free T4 in 4 to 6 weeks to assess levothyroxine dose adjustment. 3. Return to the ER or nearest hospital if you experience any return or worsening of symptoms, chest pain or discomfort, shortness of breath, high fevers, chills, night sweats, dizziness, lightheadedness, loss of consciousness , or any other worrisome signs or symptoms. This is a summarized report of a complex medical history and hospital stay. For further details, please see the entire medical record. TIME SPENT: Approximately 35 minutes was spent on this discharge, greater than half that time was spent [id number] with the patient discussing discharge plans and instructions. MARINO MAURO [id number]/CPS #: [id number] MTDD
== END 2019-09-04 12:05 | disposition home or self-care (01) ==
LOC: ED 10:16 → MED 13:11
PROVIDERS: ADMIT Internal Medicine; ATTEND Internal Medicine
DX: A41.9 Sepsis, unspecified organism (principal); J96.01 Acute respiratory failure with hypoxia; J18.9 Pneumonia, unspecified organism; R94.6 Abnormal results of thyroid function studies; E89.0 Postprocedural hypothyroidism; R06.02 Shortness of breath; D64.9 Anemia, unspecified; Z85.850 Personal history of malignant neoplasm of thyroid; Z79.899 Other long term (current) drug therapy; F10.10 Alcohol abuse, uncomplicated; Z23 Encounter for immunization
CPT/HCPCS: 36415; 71046; 71260; 80048; 80053; 82272; 82607; 82728; 82746; 83540; 83550; 83735; 83880; 84439; 84443; 84466; 84484; 85025; 85379; 86140; 87070; 87205; 87899; 90471; 90686; 93005; 96361; 96365; 96366; 96367; 96372; 96375; 99283; A9270-GY; G0008; G0378; J0696; J1650; J3411; Q9967

== ENCOUNTER 2019-09-07 20:01 | Inpatient (IN) | payer SELFPAY ==
--- NOTE | 2019-09-07 21:25 | ED ---
Respiratory - HPI Summary HPI Summary: 63 year old M arriving via private car to [facility] complains of worsening shortness of breath since today. Recent dx pneumonia. He has been to his primary care provider who has placed him on several courses of antibiotics but he still isn't getting better. He was seen in the ED on 09/01 for similar. He was admitted, stayed in the hospital for 2 days, was d/c on 09/03 with rx for antibiotics which he has been taking. He reports decreased appetite, fever. No sore throat, rhinorrhea, nausea/vomiting/diarrhea. Symptoms aggravated by exertion. Symptoms alleviated by supplemental nasal cannula oxygen. Medications reviewed. Nonsmoker. His girlfriend smokes. - History of Current Complaint Chief Complaint: EDShortnessOfBreath Stated Complaint: SOB PER PT Time Seen by Provider: 09/07/19 21:24 Hx Obtained From: Patient Onset/Duration: Lasting Hours, Still Present Timing: Constant Current Severity: None Pain Intensity: 0 Aggravating Factor(s): Exertion Alleviating Factor(s): Oxygen - Allergy/Home Medications Allergies/Adverse Reactions: Allergies Allergy/AdvReac Type Severity Reaction Status Date / Time No Known Allergies Allergy Verified 09/20/16 12:18 Home Medications: Home Medications Benzonatate CAP* [Tessalon 100 MG CAP*] 100 mg PO BID PRN #20 cap 09/04/19 [Rx Confirmed 09/07/19] Folic Acid TAB* [Folvite TAB*] 1 mg PO DAILY #90 tab 09/04/19 [Rx Confirmed 06/16] Levofloxacin TAB* [Levaquin 750 MG TAB*] 750 mg PO DAILY #7 tab 09/04/19 [Rx Confirmed 09/07/19] Levothyroxine TAB* [Synthroid 125 MCG TAB*] 125 mcg PO 0600 #120 tab 09/04/19 [ Rx Confirmed 09/07/19] Melatonin 3 mg PO BEDTIME PRN tab 09/04/19 [Rx Confirmed 09/07/19] Multivitamins/Minerals TAB* [Theragran/minerals TAB*] 1 tab PO DAILY tab [Rx Confirmed 09/07/19] Thiamine TAB* [Vitamin B-1 TAB 100 MG*] 100 mg PO DAILY #90 tab 09/04/19 [Rx Confirmed 09/07/19] guaiFENesin ER TAB [Mucinex*] 1,200 mg PO BID tab.er 09/04/19 [Rx Confirmed 06/16] Albuterol HFA INHALER* [Ventolin HFA Inhaler*] 2 puff INH Q4H PRN 30 Days #1 mdi 09/10/19 [Rx] Docusate CAP* [Colace Cap*] 100 mg PO BID cap 09/10/19 [Rx] predniSONE 20 mg TAB [Deltasone 20 MG TAB*] 40 mg PO SEE INSTRUCTIONS 10 Days # 10 tab 09/10/19 [Rx] PMH/Surg Hx/FS Hx/Imm Hx Endocrine/Hematology History: Reports: Hx Thyroid Disease Denies: Hx Diabetes Cardiovascular History: Denies: Hx Deep Vein Thrombosis, Hx Hypertension Respiratory History: Reports: Hx Pneumonia Denies: Hx Asthma, Hx Chronic Obstructive Pulmonary Disease (COPD), Hx Pulmonary Edema Sensory History: Denies: Hx Contacts or Glasses, Hx Hearing Aid Opthamlomology History: Denies: Hx Contacts or Glasses - Cancer History Cancer Type, Location and Year: thyroid - Surgical History Surgery Procedure, Year, and Place: tonsillectomy, corrective eye surgery Infectious Disease History: No Infectious Disease History: Denies: Traveled Outside the [place] in Last 30 Days - Family History Known Family History: Positive: Cardiac Disease - Social History Alcohol Use: Rare Alcohol Amount: 5 beers a day Substance Use Type: Reports: None Hx Tobacco Use: No Smoking Status (MU): Never Smoked Tobacco Review of Systems Positive: Fever ENT: Negative - rhinorrhea Negative: Sore Throat Positive: Shortness Of Breath Positive: Other - decreased appetite. Negative: Vomiting, Diarrhea, Nausea All Other Systems Reviewed And Are Negative: Yes Physical Exam - Summary Physical Exam Summary: Appearance: Mildly dyspneic but otherwise well-appearing, well-nourished male lying in bed comfortably. Vital signs notable for tachycardia and hypoxemia Skin: Warm, dry, no obvious rash Eyes: sclera anicteric, no conjunctival pallor HENT: mucous membranes moist, pharynx appears normal Neck: Supple, nontender Respiratory: Coarse crackles in both bases without signs of focal consolidation Cardiovascular: Normal S1, S2. No murmurs. Normal distal pulses in tibial and radial bilaterally. Abdomen: Soft, nontender, normal active bowel sounds present Musculoskeletal: Normal, Strength/ROM Intact Neurological: A&Ox3, awake and alert, mentation is normal, speech is fluent and appropriate Psychiatric: affect is normal, does not appear anxious or depressed Triage Information Reviewed: Yes Vital Signs On Initial Exam: Initial Vitals Temp Pulse Resp BP Pulse Ox 99.3 F 105 24 116/73 83 09/07/19 20:03 09/07/19 20:03 09/07/19 20:03 09/07/19 20:03 09/07/19 20:03 Vital Signs Reviewed: Yes Procedures - Sedation Patient Received Moderate/Deep Sedation with Procedure: No Diagnostics - Vital Signs Vital Signs Temp Pulse Resp BP Pulse Ox 09/07/19 20:15 91 09/07/19 20:03 99.3 F 105 24 116/73 83 - Laboratory Result Diagrams: 09/09/19 06:46 09/09/19 06:46 Lab Statement: Any lab studies that have been ordered have been reviewed, and results considered in the medical decision making process. - Radiology CXR Radiology Interpretation Completed By: ED Physician - Increased interstitial markings bilaterally with right worse than left. Similar to prior film. Pending official report. - EKG 2203 Summary of EKG Findings: NSR at 87 BPM, P waves, QRS complex, and T waves are within normal limits, T waves and intervals are normal, no ischemic changes. This is a normal EKG. ED physician has reviewed and interpreted this EKG. Disposition - Course Course Of Treatment: 63 y/o M with recent dx pneumonia c/o worsening shortness of breath, decreased appetite, fever since today. He has been to his primary care provider who has placed him on several courses of antibiotics with minimal improvement. Seen here on 09/01 for similar, admitted, d/c on 09/03 with rx for antibiotics. He is here today for worsening symptoms. The patient is a mildly dyspneic but otherwise well-appearing, well-nourished male lying in bed comfortably. Vital signs notable for tachycardia and hypoxemia. He has coarse crackles in both bases without signs of focal consolidation. Bloodwork results with no significant abnormalities except for WBC 14.1, RBC 3.71, Hgb 11.6, Hct 34, absolute neuts 9.8, absolute monos 1.5, INR 1.19, APTT 38.4, sodium 133, chloride 99, alkaline phosphatase 112. An EKG is within normal limits. CXR is similar to prior film. In the ED course, the patient was given an albuterol treatment. The patient remains hypoxic in the ED. Spoke with Dr. Easton. He agrees to admit the patient. The patient will be admitted to the hospitalist. - Diagnoses Provider Diagnoses: Respiratory failure with hypoxia - Physician Notifications Discussed Care Of Patient With: Yakov Easton Time Discussed With Above Provider: 22:47 Instructed by Provider To: Admit As Inpatient Discharge ED - Sign-Out/Discharge Documenting (check all that apply): Patient Departure - Discharge Plan Condition: Stable Disposition: ADMITTED TO [facility] - Billing Disposition and Condition Condition: STABLE Disposition: Admitted to [facility] - Attestation Statements Document Initiated by Shawnee: Yes Documenting Scribe: Gini Romano Provider For Whom Shawnee is Documenting (Include Credential): Shawn Singh MD Scribe Attestation: Gini Castro, scribed for Shawn Singh MD on 09/12/19 at 0603. Scribe Documentation Reviewed: Yes Provider Attestation: The documentation as recorded by the Gini connolly accurately reflects the service I personally performed and the decisions made by Shawn bernstein MD Status of Scribe Document: Viewed
[2019-09-07] MEDS ORDERED: Albuterol 2.5 MG/3 ML NEB.SOL* (0.083%) INH ONE (21:46)
[2019-09-07 22:54] LABS: ABS Basophils 0.1 10^3/ul (0-0.2); ABS Eosinophils 0.6 10^3/ul (0-0.6); ABS Monocytes 1.5 10^3/ul (0-0.8); ABS Neutrophils 9.8 10^3/ul (1.5-7.7); Eosinophil % 4.4 %; Hematocrit 34 % (42-52); Hemoglobin 11.6 g/dL (14.0-18.0); Lymphocyte % 14.4 %; Mean Corpuscular HGB Conc 34 g/dL (31-36); Mean Corpuscular Hemoglobin 31 pg (27-31); Mean Corpuscular Volume 93 fL (80-94); Mean Platelet Volume 7.5 fL (7.4-10.4); Nucleated Red Blood Cells % 0.1; Platelet Count 405 10^3/uL (150-450); Red Blood Count 3.71 10^6 /uL (4.18-5.48); Red Cell Distribution Width 14 % (10-15); White Blood Count 14.1 10^3/uL (3.5-10.8)
[2019-09-07 23:01] LABS: Activated Partial Thrombo Time 38.4 seconds (26.0-38.0); INR 1.19 (0.82-1.09)
[2019-09-07 23:08] LABS: Albumin 3.5 g/dL (3.2-5.2); BUN/Creatinine Ratio 16.3 (8-20); Calcium 9.5 mg/dL (8.6-10.3); EGFR African American 100.9 (>60); EGFR Non-African American 83.4 (>60); Globulin 3.4 g/dL (2-4); Total Bilirubin 0.4 mg/dL (0.2-1.0); Total Protein 6.9 g/dL (6.4-8.9)
[2019-09-07 23:10] LABS: Troponin I 0.01 ng/mL (<0.03)
[2019-09-08] MEDS ORDERED: Benzonatate CAP* 100 MG PO PRN (00:22)
[2019-09-08] MEDS ORDERED: Melatonin 3 MG TAB PO PRN (00:22)
[2019-09-08] MEDS ORDERED: Levofloxacin 750 MG IVPREMIX(* 750 MG/150 ML BAG IVPB ONE (01:00)
[2019-09-08] MEDS ORDERED: Ondansetron INJ* 2 MG/ML VIAL IV PRN (01:24)
[2019-09-08] MEDS ORDERED: Al Hydrox/Mg Hydrox/Simet LIQ* 30 ML UDC PO PRN (01:24)
[2019-09-08] MEDS ORDERED: Albuterol/Ipratropium NEB.SOL* Albuterol 2.5 MG/Ipratropium 0.5 MG 3 ML INH PRN (01:24)
[2019-09-08] MEDS ORDERED: Albuterol 2.5 MG/3 ML NEB.SOL* (0.083%) INH PRN (01:24)
[2019-09-08] MEDS ORDERED: NS 0.9% 1000 ML** 1,000 ML IV SCH (01:30)
[2019-09-08] MEDS: Levothyroxine TAB* 125 MCG TAB PO SCH (05:56)
[2019-09-08] MEDS ORDERED: Levofloxacin TAB* 750 MG PO SCH (09:00)
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
[2019-09-08] MEDS: Thiamine TAB* 100 MG TAB PO SCH (10:21)
[2019-09-08] MEDS: Folic Acid TAB* 1 MG PO SCH (10:21)
[2019-09-08] MEDS: guaiFENesin ER TAB 600 MG PO SCH ×2 (10:21→20:54)
[2019-09-08] MEDS: Multivitamins/Minerals TAB PO SCH (10:21)
[2019-09-08] MEDS: Enoxaparin(*) 40 MG/0.4 ML SYR SUBCUT SCH (10:22)
[2019-09-08] MEDS: Docusate CAP* 100 MG PO SCH ×2 (10:22→20:55)
[2019-09-08 11:20] LABS: Influenza A Molecular Negative (Negative); Influenza B Molecular Negative (Negative)
[2019-09-08 12:06] LABS: Urine Appearance Clear; Urine Bilirubin Negative (Negative); Urine Blood Negative (Negative); Urine Color Straw; Urine Glucose Negative (Negative); Urine Ketones Negative (Negative); Urine Nitrite Negative (Negative); Urine Protein Negative (Negative); Urine Specific Gravity 1.005 (1.010-1.030); Urine Urobilinogen Negative (Negative)
--- NOTE | 2019-09-08 14:51 | PN ---
Subjective Date of Service: 09/08/19 Interval History: patient seen today, he feels little better today with the oxygen. Not as shortness of breath as yesterday. No fever. coughing. no nausea or vomit Past Medical History: Unchanged from Admission Objective Active Medications: Al Hydrox/Mg Hydrox/Simethicone (Maalox Plus*) 30 ml PO Q6H PRN PRN Reason: INDIGESTION Albuterol (Ventolin 2.5 Mg/3 Ml Neb.Lizeth*) 2.5 mg INH [id number] AWAKE PRN PRN Reason: sob/wheezing Albuterol/Ipratropium (Duoneb (Albuterol 2.5 Mg/Ipratropium 0.5 Mg)) 1 neb INH [id number] AWAKE PRN PRN Reason: sob/wheexing Benzonatate (Tessalon Cap*) 100 mg PO BID PRN PRN Reason: COUGH Last Admin: 09/08/19 03:51 Dose: 100 mg Docusate Sodium (Colace Cap*) 100 mg PO BID [facility] Last Admin: 09/08/19 10:22 Dose: 100 mg Enoxaparin Sodium (Lovenox(*)) 40 mg SUBCUT Q24H [facility] Last Admin: 09/08/19 10:22 Dose: 40 mg Folic Acid (Folvite Tab*) 1 mg PO DAILY [facility] Last Admin: 09/08/19 10:21 Dose: 1 mg Guaifenesin (Mucinex*) 1,200 mg PO BID [facility] Last Admin: 09/08/19 10:21 Dose: 1,200 mg Levofloxacin/Dextrose (Levaquin 750 Mg Ivpremix(*)) 750 mg in 150 mls @ 100 mls /hr IVPB Q24H [facility]; Protocol Sodium Chloride (Ns 0.9% 1000 Ml) 1,000 mls @ 100 mls/hr IV PER RATE [facility] Last Admin: 09/08/19 02:21 Dose: 100 mls/hr Levothyroxine Sodium (Synthroid Tab*) 125 mcg PO 0600 [facility] Last Admin: 09/08/19 05:56 Dose: 125 mcg Melatonin (Melatonin) 3 mg PO BEDTIME PRN PRN Reason: INSOMNIA Last Admin: 09/08/19 03:51 Dose: 3 mg Multivitamins/Minerals (Theragran/Minerals Tab*) 1 tab PO DAILY [facility] Last Admin: 09/08/19 10:21 Dose: 1 tab Ondansetron HCl (Zofran Inj*) 4 mg IV Q4H PRN PRN Reason: NAUSEA/VOMITING Prednisone (Deltasone 20 Mg Tab) 40 mg PO DAILY [facility] Thiamine HCl (Vitamin B-1 Tab*) 100 mg PO DAILY [facility] Last Admin: 09/08/19 10:21 Dose: 100 mg Vital Signs - 8 hr 09/08/19 09/08/19 09/08/19 07:15 08:00 11:15 Temperature 97.6 F 98.3 F Pulse Rate 80 83 Respiratory 18 18 16 Rate Blood Pressure 105/67 106/65 (mmHg) O2 Sat by Pulse 93 92 94 Oximetry Oxygen Devices in Use Now: Nasal Cannula Appearance: awake, alert. no distress Eyes: No Scleral Icterus, PERRLA, - Ears/Nose/Mouth/Throat: NL Teeth, Lips, Gums, Mucous Membranes Moist, - - poor dentition Neck: NL Appearance and Movements; NL JVP, Trachea Midline Respiratory: Symmetrical Chest Expansion and Respiratory Effort, Clear to Auscultation, - - bibasilar crackels Cardiovascular: NL Sounds; No Murmurs; No JVD, No Edema Abdominal: NL Sounds; No Tenderness; No Distention Result Diagrams: 09/07/19 22:41 09/07/19 22:41 Assess/Plan/Problems-Billing Assessment: 63 y/o male admitted for indwelling URI symptoms started mid 08/13/19 treated with augmentin and steroid oupatient. Admitted 09/01-09/03 for bronchial pneumonia and hypoxia improved and discharged on Levaquin returned to ED for ongoing cough, shortness of breath and now with o2 requirment 3 liters. No recent travel, no documented fever (only low grade), - Patient Problems (1) Bronchopneumonia Current Visit: No Status: Acute Code(s): J18.0 - BRONCHOPNEUMONIA, UNSPECIFIED ORGANISM SNOMED Code(s): 317909158 Comment: - Currently will continue his levaquin 750 mg IV daily, raudel roy - Influenza A&B negative - Viral pannel obtained and send - Discussed with ID not considered a high risk for COVID-19. Isolation discontinued - Given his CXXR finding (hyperinflation) second hand smoking will add prednisone taper 40 mg daily starting today (2) ETOH abuse Current Visit: No Status: Acute Code(s): F10.10 - ALCOHOL ABUSE, UNCOMPLICATED SNOMED Code(s): 27092763 Comment: - hx of daily Drinks 4-6 alcoholic - I will place him on WA protocol and will add thiamine, folic acid and multivitamin. (3) Hypothyroid Current Visit: No Status: Acute Code(s): E03.9 - HYPOTHYROIDISM, UNSPECIFIED SNOMED Code(s): 29447589 Comment: - recently his levothyroxine was 150mcg, and was decreased to 125mcg in his previous admission will continue at 125 mcg daily (4) DVT prophylaxis Current Visit: No Status: Acute Code(s): Z29.9 - ENCOUNTER FOR PROPHYLACTIC MEASURES, UNSPECIFIED SNOMED Code(s): 568140054 Comment: -Continue lovenox.
--- NOTE | 2019-09-08 17:17 | ECHO ---
*[facility]* [place] [address] Fax #: [phone] Transthoracic Echocardiogram Patient: Dmitri Delgado : 1955 Study Date: 09/08/2019 Age: 63 Gender: M HR: 74 bpm Height: 68 in /172.7 cm BSA: 1.84 m^2 Weight: 155.7 lb /70.8 kg BMI: 23.7 kg/m^2 *Rn Plastic Surgery: * Alivia Wang *Referring Physician: * Murphy OrtizReading Physician: * Chriss Mckenzie MD Indications: SOB. History: Pneumonia. Dyspnea. Conclusions Summary: - Left ventricle: Systolic function is normal. The estimated ejection fraction is 55-60%. - Mitral valve: The findings are consistent with mild stenosis. There is trace to mild regurgitation. - Tricuspid valve: There is trace regurgitation. - No previous echocardiogram available. Study data: Transthoracic echocardiogram. Procedure: Transthoracic echocardiography was performed. Image quality was good. Complete 2D, spectral Doppler, and color flow Doppler. Location: Bedside. Patient status: Inpatient. Patient room number: 419-02. Rhythm: Normal sinus rhythm. Findings Left ventricle: The cavity size is normal. Wall thickness is normal. Systolic function is normal. The estimated ejection fraction is 55-60%. Wall motion is normal; there are no regional wall motion abnormalities. Left ventricular diastolic function parameters are normal. Right ventricle: The cavity size is normal. Systolic function is normal. Ventricular septum: The ventricular septum is normal. Left atrium: The atrium is normal in size. Right atrium: The atrium is normal in size. Atrial septum: No defect or patent foramen ovale is identified. Mitral valve: The valve is structurally normal. The findings are consistent with mild stenosis. There is trace to mild regurgitation. Aortic valve: The valve is structurally normal. The valve is trileaflet. Cusp separation is normal. Transvalvular velocity is within the normal range. There is no evidence of stenosis. There is no significant regurgitation. Tricuspid valve: The valve is structurally normal. There is no evidence of stenosis. There is trace regurgitation. Pulmonic valve: The valve is structurally normal. There is no evidence of stenosis. There is trace regurgitation. Aorta: The aortic root appears normal. The aortic arch appears normal. Pericardium: There is no significant pericardial effusion. Pulmonary arteries: Systolic pressure is within the normal range, estimated to be 30 mm Hg. Systemic veins: Inferior vena cava: The vessel is normal in size. There is (>= 50%) respiratory change in the IVC dimension. Pulmonary veins: The Pulmonary veins appear normal. Measurements Left ventricle Value Ref Aortic valve continued Value Ref FATMATA, LAX (L) 3.7 cm 4.2 - 5.8 Mean grad, S 5.0 mm Hg ----- ESD, LAX 2.6 cm 2.5 - 4.0 Peak grad, S 8.0 mm Hg ----- FS, LAX 31 % 25 - 43 ALTAGRACIA, VTI 3.14 cm^2 ----- PW, ED, LAX (H) 1.1 cm 0.6 - 1.0 ALTAGRACIA, Vmax 2.96 cm^2 ----- E', lat malika, TDI 13.0 cm/sec >=10.0 E/e', lat malika, 7 Mitral valve Value R ef TDI Peak E 0.96 m/sec ----- Peak A 0.89 m/sec ----- LVOT Value Ref Decel time 222 ms ----- Diam, S 2.00 cm Peak grad, D 3.7 mm Hg ----- Area 3.1 cm^2 Peak E/A ratio 1.1 ----- Peak tracy, S 1.34 m/sec Peak grad, S 7 mm Hg Pulmonic valve Value Ref Mean grad, S 4 mm Hg Peak v, S 0.76 m/sec ----- SV 93 ml Peak grad, S 2.0 mm Hg ----- Ventricular septum Value Ref Tricuspid valve Value Ref IVS, ED 1.0 cm 0.6 - 1.0 TR peak v 2.43 m/sec <=2 .8 Peak RV-RA grad, S 24 mm Hg ----- Right ventricle Value Ref Max TR tracy 2.43 m/sec ----- FATMATA, LAX 3.5 cm FATMATA minor ax, (H) 3.6 cm 1.9 - 3.5 Aortic root Value Ref A4C mid Root diam 2.9 cm <4. 0 Left atrium Value Ref Ascending aorta Value Ref AP dim, ES 3.20 cm 3.00 - AAo AP diam, S 2.8 cm ----- 4.00 ML dim, A4C 4.2 cm Aortic arch Value Ref SI dim, A4C 5.0 cm Arch diam 2.7 cm ----- Vol/bsa, ES, 1-p 22 ml/m^2 12 - 37 A4C Decending aorta Value Ref Aviva peak tracy 0.95 m/sec ----- Right atrium Value Ref SI dim, ES 4.3 cm 3.4 - 5.3 Inferior vena cava Value Ref ML dim, ES, A4C 3.9 cm 2.6 - 4.4 Diam 2.1 cm ----- SI dim, ES, A4C 4.3 cm 3.4 - 5.3 Aortic valve Value Ref Peak v, S 1.42 m/sec VTI, S 29.7 cm Legend: (L) and (H) titi values outside specified reference range. Prepared and electronically signed by Chriss Mckenzie MD 09/08/2019 17:16
[2019-09-09] MEDS: Levofloxacin 750 MG IVPREMIX(* 750 MG/150 ML BAG IVPB SCH (02:19)
[2019-09-09] MEDS: Levothyroxine TAB* 125 MCG TAB PO SCH (06:36)
[2019-09-09 06:55] LABS: ABS Basophils 0.1 10^3/ul (0-0.2); ABS Eosinophils 0.1 10^3/ul (0-0.6); ABS Lymphocytes 1.2 10^3/ul (1.0-4.8); ABS Neutrophils 8.2 10^3/ul (1.5-7.7); Eosinophil % 1.1 %; Hematocrit 33 % (42-52); Hemoglobin 11.4 g/dL (14.0-18.0); Lymphocyte % 11.4 %; Mean Corpuscular HGB Conc 34 g/dL (31-36); Mean Corpuscular Hemoglobin 32 pg (27-31); Mean Corpuscular Volume 92 fL (80-94); Mean Platelet Volume 7.3 fL (7.4-10.4); Platelet Count 444 10^3/uL (150-450); Red Cell Distribution Width 14 % (10-15); White Blood Count 10.5 10^3/uL (3.5-10.8)
[2019-09-09 07:11] LABS: BUN/Creatinine Ratio 18.3 (8-20); Calcium 8.9 mg/dL (8.6-10.3); EGFR African American 135.6 (>60); EGFR Non-African American 112.1 (>60); Potassium 4.2 mmol/L (3.5-5.0)
[2019-09-09] MEDS: Enoxaparin(*) 40 MG/0.4 ML SYR SUBCUT SCH (08:15)
[2019-09-09] MEDS: Docusate CAP* 100 MG PO SCH ×2 (08:16→20:45)
[2019-09-09] MEDS: Thiamine TAB* 100 MG TAB PO SCH (08:16)
[2019-09-09] MEDS: Multivitamins/Minerals TAB PO SCH (08:16)
[2019-09-09] MEDS: Folic Acid TAB* 1 MG PO SCH (08:16)
[2019-09-09] MEDS: guaiFENesin ER TAB 600 MG PO SCH ×2 (08:16→20:45)
--- NOTE | 2019-09-09 15:42 | PN ---
Subjective Date of Service: 09/09/19 Interval History: Patient seen today, Awake alert and oriented. No fever or chills. Taking po. Past Medical History: Unchanged from Admission Objective Active Medications: Al Hydrox/Mg Hydrox/Simethicone (Maalox Plus*) 30 ml PO Q6H PRN PRN Reason: INDIGESTION Albuterol (Ventolin 2.5 Mg/3 Ml Neb.Lizeth*) 2.5 mg INH [id number] AWAKE PRN PRN Reason: sob/wheezing Albuterol/Ipratropium (Duoneb (Albuterol 2.5 Mg/Ipratropium 0.5 Mg)) 1 neb INH [id number] AWAKE PRN PRN Reason: sob/wheexing Benzonatate (Tessalon Cap*) 100 mg PO BID PRN PRN Reason: COUGH Last Admin: 09/08/19 03:51 Dose: 100 mg Docusate Sodium (Colace Cap*) 100 mg PO BID [facility] Last Admin: 09/09/19 08:16 Dose: 100 mg Enoxaparin Sodium (Lovenox(*)) 40 mg SUBCUT Q24H [facility] Last Admin: 09/09/19 08:15 Dose: 40 mg Folic Acid (Folvite Tab*) 1 mg PO DAILY [facility] Last Admin: 09/09/19 08:16 Dose: 1 mg Guaifenesin (Mucinex*) 1,200 mg PO BID [facility] Last Admin: 09/09/19 08:16 Dose: 1,200 mg Levofloxacin/Dextrose (Levaquin 750 Mg Ivpremix(*)) 750 mg in 150 mls @ 100 mls /hr IVPB Q24H [facility]; Protocol Last Admin: 09/09/19 02:19 Dose: 100 mls/hr Levothyroxine Sodium (Synthroid Tab*) 125 mcg PO 0600 [facility] Last Admin: 09/09/19 06:36 Dose: 125 mcg Melatonin (Melatonin) 3 mg PO BEDTIME PRN PRN Reason: INSOMNIA Last Admin: 09/08/19 03:51 Dose: 3 mg Multivitamins/Minerals (Theragran/Minerals Tab*) 1 tab PO DAILY [facility] Last Admin: 09/09/19 08:16 Dose: 1 tab Ondansetron HCl (Zofran Inj*) 4 mg IV Q4H PRN PRN Reason: NAUSEA/VOMITING Prednisone (Deltasone 20 Mg Tab) 40 mg PO DAILY [facility] Last Admin: 09/09/19 08:16 Dose: 40 mg Thiamine HCl (Vitamin B-1 Tab*) 100 mg PO DAILY [facility] Last Admin: 09/09/19 08:16 Dose: 100 mg Vital Signs - 8 hr 09/09/19 09/09/19 09/09/19 08:00 10:00 11:54 Temperature 97.9 F 97.9 F Pulse Rate 80 84 Respiratory 18 18 Rate Blood Pressure 111/68 113/67 (mmHg) O2 Sat by Pulse 96 95 93 Oximetry 09/09/19 09/09/19 12:04 14:00 Temperature 98.3 F 98.2 F Pulse Rate 73 78 Respiratory 20 20 Rate Blood Pressure 107/66 121/64 (mmHg) O2 Sat by Pulse 92 93 Oximetry Oxygen Devices in Use Now: Nasal Cannula, High Flow Nasal Cannula Appearance: awake, alert no fever Eyes: No Scleral Icterus, - - EOMI Ears/Nose/Mouth/Throat: NL Teeth, Lips, Gums, Mucous Membranes Moist Neck: NL Appearance and Movements; NL JVP, Trachea Midline Respiratory: Symmetrical Chest Expansion and Respiratory Effort, - - fine expiratoyr wheezing Cardiovascular: NL Sounds; No Murmurs; No JVD Abdominal: NL Sounds; No Tenderness; No Distention Result Diagrams: 09/09/19 06:46 09/09/19 06:46 Microbiology and Other Data: Microbiology 09/07/19 22:41 Aerobic Blood Culture - Preliminary Blood Venous No Growth Day 1 Anaerobic Blood Culture - Preliminary No Growth Day 1 09/07/19 22:41 Aerobic Blood Culture - Preliminary Blood Venous No Growth Day 1 Anaerobic Blood Culture - Preliminary No Growth Day 1 Assess/Plan/Problems-Billing Assessment: 63 y/o male admitted for indwelling URI symptoms started mid 08/13/19 treated with augmentin and steroid oupatient. Admitted 09/01-09/03 for bronchial pneumonia and hypoxia improved and discharged on Levaquin returned to ED for ongoing cough, shortness of breath and now with o2 requirment 3 liters. No recent travel, no documented fever (only low grade), - Patient Problems (1) Bronchopneumonia Current Visit: No Status: Acute Code(s): J18.0 - BRONCHOPNEUMONIA, UNSPECIFIED ORGANISM SNOMED Code(s): 436448550 Comment: - Currently will continue his levaquin 750 mg IV daily, raudel roy - Influenza A&B negative - Viral pannel obtained and send - Discussed with ID not considered a high risk for COVID-19. Isolation discontinued - Given his CXXR finding (hyperinflation) second hand smoking will continue prednisone taper 40 mg daily (2) ETOH abuse Current Visit: No Status: Acute Code(s): F10.10 - ALCOHOL ABUSE, UNCOMPLICATED SNOMED Code(s): 24271998 Comment: - hx of daily Drinks 4-6 alcoholic - I will place him on WA protocol and will add thiamine, folic acid and multivitamin. so far negative (3) Hypothyroid Current Visit: No Status: Acute Code(s): E03.9 - HYPOTHYROIDISM, UNSPECIFIED SNOMED Code(s): 31252385 Comment: - recently his levothyroxine was 150mcg, and was decreased to 125mcg in his previous admission will continue at 125 mcg daily (4) DVT prophylaxis Current Visit: No Status: Acute Code(s): Z29.9 - ENCOUNTER FOR PROPHYLACTIC MEASURES, UNSPECIFIED SNOMED Code(s): 174651086 Comment: -Continue lovenox.
[2019-09-10] MEDS: Levofloxacin 750 MG IVPREMIX(* 750 MG/150 ML BAG IVPB SCH (02:37)
[2019-09-10] MEDS: Levothyroxine TAB* 125 MCG TAB PO SCH (05:42)
[2019-09-10] MEDS: Enoxaparin(*) 40 MG/0.4 ML SYR SUBCUT SCH (10:00)
[2019-09-10] MEDS: guaiFENesin ER TAB 600 MG PO SCH (10:46)
[2019-09-10] MEDS: Thiamine TAB* 100 MG TAB PO SCH (10:46)
[2019-09-10] MEDS: Multivitamins/Minerals TAB PO SCH (10:47)
[2019-09-10] MEDS: Docusate CAP* 100 MG PO SCH (10:47)
[2019-09-10] MEDS: Folic Acid TAB* 1 MG PO SCH (10:47)
[2019-09-10 12:04] VITALS: BP 121/81
--- NOTE | 2019-09-10 17:45 | DS ---
CC: CHATO Hinton; Dr. Wanda Willingham * DISCHARGE SUMMARY: DATE OF ADMISSION: 09/08/19 DATE OF DISCHARGE: 09/10/19 PRIMARY CARE PROVIDER: CHATO Hinton FINAL DISCHARGE DIAGNOSES: 1. 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 2. Acute hypoxic respiratory failure, required oxygen supplementation. 3. Alcohol dependency. 4. Hypothyroidism. HOSPITAL COURSE: The patient was admitted to [facility] on 09/07/19 shortly after he was released from the hospital for what appeared to be bronchial pneumonia on oral Levaquin. He was doing well for 1 to 2 days; however, he started feeling worse back on day #2. He represented to the emergency room and on presentation he was again requiring high-flow oxygen at 5 L. He was started on IV Levaquin, which is the same that he was at home and he was seen and evaluated by me the following day. On 09/08/19, shortly after his arrival to the floor the following morning on bed assessment, he had significant expiratory wheezing and coarse rhonchi with transmitted upper airway breath sounds. He was placed on isolation and given his prolonged course of URI that started on outpatient basis by his primary that required oral antibiotic and prednisone, then 10 days or so he came into the ER where he was admitted on his last hospitalization, discharged home and failed again, now he is back, I was quite concerned that he may have some viral illness related to the COVID-19. I placed him on isolation. I did the viral panel for respiratory viral panel, which was negative. I discussed with ID regarding testing for COVID-19. It was not recommended given the fact that he was improving with a short course of steroids as an outpatient, then discharged, improving, did not act and behave as COVID-19 patient; therefore, he was not tested. I started prednisone therapy after it was confirmed that was not the case by ID and significantly he improved over the next 24 hours in functionality and I was able to wean him off on oxygen progressively over the past 24 hours from 5 L and now he is 94% on 3 L, either with ambulation he maintained 92%. Therefore, the patient verbalized and expressed significant improvement. I am going to be releasing him home with a short taper of prednisone, but he was instructed to follow up with dope firer for proper followup. He probably will benefit from pulmonary function tests and pulmonary rehabilitation. The patient is in agreement and currently he is deemed stable for discharge. PHYSICAL EXAMINATION: Vital Signs: Temperature 97.9, pulse 82, respiratory rate 20, satting 96% on room air, blood pressure 121/81. Generally, he is awake , alert, pleasant, in no distress. Head and Neck: Normocephalic, atraumatic. Lungs: Clear to auscultation. I did not appreciate any wheezing. He does have some minimal bibasilar crackles at the bases. Abdomen: Positive bowel sounds. Soft, nontender, nondistended. EPIC AMBULATORY ANALYST: There is no motor or focal sensory deficit. Moving extremities x4. DIAGNOSTIC STUDIES/LAB DATA: When he presented, his white count was 14,000, down to 10.5. His chemistry: Sodium 134, mildly hyponatremic, otherwise electrolytes unremarkable. Urinalysis negative. Serology for his respiratory viral panel was all negative, but was not tested for SARS and COVID. Blood cultures negative x2 days. Imaging: He had a chest x-ray, which was done on 09/07/19, did not reveal any significant infiltrate, but he does have some interstitial opacification which I presume could be probably from or bronchiectasis. Echocardiogram was done on 09/08/19 to assess his LV function, which shows normal ejection fraction, EF is 55% to 60%. No significant valvular disease. DISCHARGE MEDICATIONS: He will be discharged on his routine home medications includin. To resume his Levaquin 750 mg daily as per home regimen. 2. I am going to send him on prednisone taper 40 mg for 2 more days, then 20 mg for 4 days, then 10 mg for 4 days. 3. New prescription for albuterol inhaler 2 puffs every 4 hours as needed. 4. Colace 100 mg b.i.d. 5. Tessalon 100 mg twice a day p.r.n. 6. Folic acid 1 mg daily. 7. Mucinex 1200 b.i.d. 8. Levoxyl 125 daily. 9. Melatonin 3 mg at bedtime. 10. Multivitamin daily. 11. Thiamine 100 mg daily. DISCHARGE RECOMMENDATIONS: 1. Follow up with Dr. Wanda Willingham in 1 to 2 weeks. 2. Follow up with your primary care in [place]. 3. Remain low in activity, avoid tobacco exposure, take all medications as prescribed. If symptoms reoccur or persistent, return to the emergency room immediately. DISCHARGE DISPOSITION: Home. DISCHARGE CONDITION: Stable. [id number]/[facility] #: [id number] [place]
== END 2019-09-10 14:40 | disposition home or self-care (01) | DRG 193 ==
LOC: ED 20:01 → MED 09-08 01:24
PROVIDERS: ADMIT Family Medicine; ATTEND Internal Medicine
DX: J18.0 Bronchopneumonia, unspecified organism (principal); J96.01 Acute respiratory failure with hypoxia; E87.1 Hypo-osmolality and hyponatremia; F10.20 Alcohol dependence, uncomplicated; E89.0 Postprocedural hypothyroidism; Z57.2 Occupational exposure to dust; Z85.850 Personal history of malignant neoplasm of thyroid; Z79.899 Other long term (current) drug therapy; Z83.3 Family history of diabetes mellitus; Z80.0 Family history of malignant neoplasm of digestive organs
CPT/HCPCS: 36415; 71046; 80048; 80053; 81003; 83605; 84484; 85025; 85610; 85730; 87040; 93005; 93306; 99284; A9270-GY; J1650; J7512

== ENCOUNTER 2019-09-14 11:53 | Emergency (ER) | payer OTHER ==
--- NOTE | 2019-09-14 12:00 | UC ---
Respiratory Complaint HPI - HPI Summary HPI Summary: 64 yo male presents requesting COVID testing. He tells me that he has been having SOB since mid july. He saw his PCP and had a CXR on 08/27 (CXR 08/27: IMPRESSION: #. Probable mild inflammatory infiltrate at the RIGHT midlung zone.) . His SOB worsened, he developed a fever and cough and went to the ED on 09/[address] 09/01: IMPRESSION: #. The constellation of findings favors mild bronchopneumonia. #.Upper normal 1.0 cm short axis precarinal lymph node and similar RIGHT suprahilar lymph node enlargement compared with the 2015 CT. He was admitted with Sepsis secondary to PNA and then discharged on 09/03. He returned to the ED on 09/06 (CXR 09/06: IMPRESSION: DEVELOPING PATTERN OF PERIHILAR INTERSTITIAL OPACIFICATION.). He was admitted again, treated with levaquin, and discharged on 09/09. During his stay a respiratory panel was done that was negative, but was not tested for COVID-19. Since his discharge on 09/09 he has still had a cough and feeling short of breath , but has not had a fever since being discharged. He has an appointment with his PCP tomorrow for a hospital follow up. Denies known exposure to COVID. Denies fever, chills, sore throat, sinus symptoms, chest pain, abdominal pain, n/v. - History of Current Complaint Stated Complaint: RESPIRATORY ISSUE Time Seen by Provider: 09/14/19 11:58 Hx Obtained From: Patient - Allergies/Home Medications Allergies/Adverse Reactions: Allergies Allergy/AdvReac Type Severity Reaction Status Date / Time No Known Allergies Allergy Verified 09/14/19 12:10 Home Medications: Home Medications Levothyroxine TAB* [Synthroid 125 MCG TAB*] 125 mcg PO 0600 #120 tab 09/04/19 [ Rx Confirmed 09/07/19] Multivitamins/Minerals TAB* [Theragran/minerals TAB*] 1 tab PO DAILY tab [Rx Confirmed 09/07/19] Albuterol HFA INHALER* [Ventolin HFA Inhaler*] 2 puff INH Q4H PRN 30 Days #1 mdi 09/10/19 [Rx] predniSONE 20 mg TAB [Deltasone 20 MG TAB*] 40 mg PO SEE INSTRUCTIONS 10 Days # 10 tab 09/10/19 [Rx] Benzonatate CAP* [Tessalon 100 MG CAP*] 100 mg PO TID 09/14/19 [History Confirmed 09/14/19] Loratadine [Claritin] 10 mg PO DAILY 09/14/19 [History Confirmed 09/14/19] PMH/Surg Hx/FS Hx/Imm Hx - Additional Past Medical History Additional PMH: Sepsis ARDS/PNA Thyroid cancer Endocrine History: Hypothyroidism - Surgical History Surgical History: Yes Surgery Procedure, Year, and Place: tonsillectomy, corrective eye surgery - Family History Known Family History: Positive: Cardiac Disease - Social History Lives: With Family Alcohol Use: Daily Alcohol Amount: 5 beers a day Substance Use Type: None Smoking Status (MU): Never Smoked Tobacco Household Exposure Type: Cigarettes - Immunization History Most Recent Influenza Vaccination: 09/03/19 Most Recent Pneumonia Vaccination: march, Review of Systems All Other Systems Reviewed And Are Negative: No Constitutional: Positive: Fatigue Skin: Positive: Negative Eyes: Positive: Negative ENT: Positive: Negative Respiratory: Positive: Shortness Of Breath, Cough Cardiovascular: Positive: Negative Gastrointestinal: Positive: Negative Physical Exam - Summary Physical Exam Summary: GENERAL: NAD. WDWN. No pain distress. SKIN: No rashes, sores, lesions, or open wounds. HEENT: Head: AT/NC Eyes: Conjunctiva clear without inflammation or discharge. Ears: Hearing grossly normal. TMs intact, no bulging, erythema, or edema. Nose: Nasal mucosa pink and moist. NTTP maxillary and frontal sinus. Throat: Posterior oropharynx without exudates, erythema, or tonsillar enlargement. Uvula midline. NECK: Supple. Nontender. No lymphadenopathy. CHEST: Crackles right base. No accessory muscle use. Breathing comfortably and in no distress. CV: RRR. Pulses intact. Cap refill <2seconds NEURO: Alert. PSYCH: Age appropriate behavior. Triage Information Reviewed: Yes Vital Signs: Vital Signs: Temp Pulse Resp BP Pulse Ox 98.7 F 90 18 123/80 91 09/14/19 12:13 09/14/19 12:13 09/14/19 12:13 09/14/19 12:13 09/14/19 12:13 Laboratory Tests 09/14/19 12:28 Influenza A (Rapid) Negative Influenza B (Rapid) Negative Vital Signs Reviewed: Yes Diagnostics - Radiology CXR Radiology Interpretation Completed By: Radiologist Summary of Radiographic Findings: IMPRESSION: NO ACTIVE CARDIOPULMONARY DISEASE. Respiratory Course/Dx - Course Course Of Treatment: CXR as above. Flu negative. COVID sample obtained. He has an appointment for a hosp f/u with his PCP tomorrow morning -- encouraged to keep this. He is still symptomatic from PNA with decreased O2%, but is afebrile and feeling about the same from his latest hosp discharge. If his symptoms worsen to go to the ED. Exam performed utilizing CDC recommended PPE. You are being tested for COVID-19. You need to quarantine yourself in a bedroom and bathroom only you are using. You may not leave the house. TC will contact you and notify of results when they are available. Advised to be on home isolation until cleared by the health department. Go to ED for increased SOB or any difficulty breathing - new or worsening symptoms. - Differential Dx/Diagnosis Provider Diagnosis: Cough Discharge ED - Sign-Out/Discharge Documenting (check all that apply): Patient Departure All imaging exams completed and their final reports reviewed: Yes - Discharge Plan Condition: Stable Disposition: HOME Referrals: Troy Torres PA [Primary Care Provider] - Additional Instructions: CHEST X-RAY WAS NORMAL TODAY PLEASE FOLLOW UP WITH YOUR DOCTOR SCHEDULED TOMORROW You are being tested for COVID-19. You need to quarantine yourself in a bedroom and bathroom only you are using. You may not leave the house. TC will contact you and notify of results when they are available. Advised to be on home isolation until cleared by the health department. Go to ED for increased SOB or any difficulty breathing - new or worsening symptoms. - Billing Disposition and Condition Condition: STABLE Disposition: Home
[2019-09-14 12:30] VITALS: BP 123/80
[2019-09-14 12:39] LABS: Influenza A Molecular Negative (Negative); Influenza B Molecular Negative (Negative)
== END 2019-09-14 13:20 | disposition home or self-care (01) ==
LOC: UCEAST 11:53
DX: R05 Cough (principal); R53.83 Other fatigue; R06.02 Shortness of breath; E03.9 Hypothyroidism, unspecified; Z79.890 Hormone replacement therapy
CPT/HCPCS: 71046; 99211; G0463; U0002

== ENCOUNTER 2019-10-11 10:47 | Inpatient (IN) | payer OTHER ==
[2019-10-11] MEDS ORDERED: Dexamethasone IV* 4 MG/ML 1 ML (4 MG) IM ONE (11:25)
[2019-10-11] MEDS ORDERED: NS 0.9% 1000 ML** 1,000 ML IV ONE (11:25)
[2019-10-11] MEDS ORDERED: Albuterol/Ipratropium NEB.SOL* (2.5/0.5 MG) 3 ML NEB.SOLN INH ONE (11:26)
[2019-10-11] MEDS ORDERED: Levofloxacin 750 MG IVPREMIX(* 750 MG/150 ML BAG IVPB ONE (11:34)
[2019-10-11] MEDS ORDERED: Dexamethasone IV* 4 MG/ML 1 ML (4 MG) ONE (11:35)
[2019-10-11 11:42] LABS: ABS Basophils 0.1 10^3/ul (0-0.2); ABS Eosinophils 0.3 10^3/ul (0-0.6); ABS Lymphocytes 1.1 10^3/ul (1.0-4.8); ABS Monocytes 1.2 10^3/ul (0-0.8); ABS Neutrophils 16.7 10^3/ul (1.5-7.7); Eosinophil % 1.7 %; Hematocrit 40 % (42-52); Hemoglobin 13.2 g/dL (14.0-18.0); Lymphocyte % 5.9 %; Mean Corpuscular HGB Conc 33 g/dL (31-36); Mean Corpuscular Hemoglobin 31 pg (27-31); Mean Corpuscular Volume 93 fL (80-94); Mean Platelet Volume 7.8 fL (7.4-10.4); Platelet Count 520 10^3/uL (150-450); Red Blood Count 4.29 10^6 /uL (4.18-5.48); Red Cell Distribution Width 14 % (10-15); White Blood Count 19.4 10^3/uL (3.5-10.8)
[2019-10-11 12:08] LABS: ALT 9 U/L (7-52); AST 12 U/L (13-39); Albumin 3.8 g/dL (3.2-5.2); Alkaline Phosphatase 76 U/L (34-104); Anion Gap 9 mmol/L (2-11); BUN/Creatinine Ratio 15.2 (8-20); Blood Urea Nitrogen 16 mg/dL (6-24); C Reactive Protein 155.06 mg/L (<8.01); CO2 Carbon Dioxide 23 mmol/L (22-32); Calcium 9.5 mg/dL (8.6-10.3); Chloride 99 mmol/L (101-111); EGFR African American 86.3 (>60); Glucose 95 mg/dL (70-100); Sodium 131 mmol/L (135-145); Total Protein 7.8 g/dL (6.4-8.9)
--- OUTSIDE RECORDS SUMMARY | 2019-10-11 12:08 | XMS REPORT | Continuity of Care Document ---
:1955 External Reference #:[id number] Author Name Chriss Mckenzie M.D. (transmitted by agent of provider Malia Osman) Address [address] [facility] [address] [facility] [address] [place] [address] Problems Description No Information Available Social History Type Date Description Comments Sex Unknown Allergies, Adverse Reactions, Alerts Description No Information Available Medications Description No Information Available Immunizations Description No Information Available Vital Signs Description No Information Available Results Description No Information Available Procedures Date Code Description Status 2019 38992 ECHO Transthorasic Realtime 2D W Doppler & Color Flow Hosp Completed Medical Devices Description No Information Available Encounters Type Date Location Provider Dx Diagnosis [facility] Bronchopneumonia, 10:49a marjorie Bermudez M.D. unspecified Hospitalists organism J96.01 Acute respiratory failure with hypoxia F10.20 Alcohol dependence, uncomplicated E03.9 Hypothyroidism, unspecified [facility] Bronchopneumonia, Visit 10:49a marjorie Bermudez unspecified organism Kendell Santiago F10.10 Alcohol abuse, uncomplicated E03.9 Hypothyroidism, unspecified Office Visit 2019 [facility] Ashlyn Hurtado J18.9 Pneumonia, 10:48a marjorie Bermudez M.D. unspecified Hospitalists organism J96.91 Respiratory failure, unspecified with hypoxia E03.9 Hypothyroidism, unspecified Office Visit 09/04/2019 [facility] Sabine J18.9 Pneumonia, 10:03a Assocmarjorie PA unspecified Hospitalists organism R94.6 Abnormal results of thyroid function studies D64.9 Anemia, unspecified E03.9 Hypothyroidism, unspecified C73 Malignant neoplasm of thyroid gland Office Visit 09/02/2019 10:01a [facility] J96.01 Acute respiratory Assoc,MARINO Lanier failure with Hospitalists hypoxia A41.9 Sepsis, unspecified organism E03.9 Hypothyroidism, unspecified Assessments Date Code Description Provider 09/10/2019 J18.0 Bronchopneumonia, unspecified organism Murphy Finessedestini, M.DDavian 09/10/2019 J96.01 Acute respiratory failure with hypoxia Kwan Gallo.DDavian 09/10/2019 F10.20 Alcohol dependence, uncomplicated Murphy Moussallem, M.D. 09/10/2019 E03.9 Hypothyroidism, unspecified Murphy Moussallem, M.DDavian 09/09/2019 J18.0 Bronchopneumonia, unspecified organism Murphy Mocarolinallem, M.DDavian 09/09/2019 F10.10 Alcohol abuse, uncomplicated Murphy Moussallem, M.DDavian 09/09/2019 E03.9 Hypothyroidism, unspecified Murphy Moussallem, M.DDavian 2019 R06.02 Shortness of breath Chriss Mckenzie M.D. 2019 J18.9 Pneumonia, unspecified organism Ashlyn Hurtado M.D. 2019 J96.91 Respiratory failure, unspecified with Ashlyn Hurtado M.D. hypoxia 2019 E03.9 Hypothyroidism, unspecified Ashlyn Hurtado M.D. 09/04/2019 J18.9 Pneumonia, unspecified organism MARINO Franklin 09/04/2019 R94.6 Abnormal results of thyroid function MARINO Franklin studies 09/04/2019 D64.9 Anemia, unspecified MARINO Franklin 09/04/2019 E03.9 Hypothyroidism, unspecified MARINO Franklin 09/04/2019 C73 Malignant neoplasm of thyroid gland MARINO Franklin 09/03/2019 J96.01 Acute respiratory failure with hypoxia Maddy Keane, REIMBURSEMENT MANAGER 09/03/2019 J18.0 Bronchopneumonia, unspecified organism Maddy Keane, REIMBURSEMENT MANAGER 09/03/2019 E03.9 Hypothyroidism, unspecified Maddy Keane, REIMBURSEMENT MANAGER 09/03/2019 F10.10 Alcohol abuse, uncomplicated Maddy Keane, REIMBURSEMENT MANAGER 09/03/2019 D64.9 Anemia, unspecified Maddy Keane, REIMBURSEMENT MANAGER 09/02/2019 J96.01 Acute respiratory failure with hypoxia MARINO Durham 09/02/2019 A41.9 Sepsis, unspecified organism MARINO Durham 09/02/2019 E03.9 Hypothyroidism, unspecified MARINO Durham Plan of Treatment No Information Available Functional Status Description No Information Available Mental Status Description No Information Available Referrals Description No Information Available
--- OUTSIDE RECORDS SUMMARY | 2019-10-11 12:08 | XMS REPORT | Continuity of Care Document ---
:1955 External Reference #:[id number] Author Name Murphy Ortiz M.D. (transmitted by agent of provider Lina Burrows) Address [address] [place] [address] Problems Description No Information Available Social History Type Date Description Comments Sex Unknown Allergies, Adverse Reactions, Alerts Description No Information Available Medications Description No Information Available Immunizations Description No Information Available Vital Signs Description No Information Available Results Description No Information Available Procedures Description No Information Available Medical Devices Description No Information Available Encounters Type Date Location Provider Dx Diagnosis Office Visit 09/10/2019 [facility] Murphy J18.0 Bronchopneumonia, 10:49a marjorie Bermudez M.D. unspecified Hospitalists organism J96.01 Acute respiratory failure with hypoxia F10.20 Alcohol dependence, uncomplicated E03.9 Hypothyroidism, unspecified Office 09/09/2019 [facility] Murphy J18.0 Bronchopneumonia, Visit 10:49a marjorie Bermudez unspecified organism Kendell Santiago F10.10 Alcohol abuse, uncomplicated E03.9 Hypothyroidism, unspecified Office Visit 2019 [facility] Ashlyn Hurtado J18.9 Pneumonia, 10:48a Assmarjorie jean M.D. unspecified Hospitalists organism J96.91 Respiratory failure, unspecified with hypoxia E03.9 Hypothyroidism, unspecified Office Visit 09/04/2019 [facility] Sabine J18.9 Pneumonia, 10:03a Assocmarjorie PA unspecified Hospitalists organism R94.6 Abnormal results of thyroid function studies D64.9 Anemia, unspecified E03.9 Hypothyroidism, unspecified C73 Malignant neoplasm of thyroid gland Office Visit 09/02/2019 10:01a [facility] Jefferson J96.01 Acute respiratory Assoc,MARINO Lanier failure with Hospitalists hypoxia A41.9 Sepsis, unspecified organism E03.9 Hypothyroidism, unspecified Assessments Date Code Description Provider 09/10/2019 J18.0 Bronchopneumonia, unspecified organism Murphy WisemanKwan phillips.D. 09/10/2019 J96.01 Acute respiratory failure with hypoxia Murphysharad WisemanKwan phillips.D. 09/10/2019 F10.20 Alcohol dependence, uncomplicated Murphy Ortiz, M.D. 09/10/2019 E03.9 Hypothyroidism, unspecified Murphysharad Arriazaazem, M.D. 09/09/2019 J18.0 Bronchopneumonia, unspecified organism Murphy Wisemanjacqueline, M.D. 09/09/2019 F10.10 Alcohol abuse, uncomplicated Murphy Ortiz, M.D. 09/09/2019 E03.9 Hypothyroidism, unspecified Murphysharad Arriazakaci, M.D. 2019 J18.9 Pneumonia, unspecified organism Ashlyn [...] Acute respiratory failure with hypoxia Maddy Keane, ASSURANCE ASSOCIATE 09/03/2019 J18.0 Bronchopneumonia, unspecified organism Maddy Keane, ASSURANCE ASSOCIATE 09/03/2019 E03.9 Hypothyroidism, unspecified Maddy Keane, ASSURANCE ASSOCIATE 09/03/2019 F10.10 Alcohol abuse, uncomplicated Maddy Keane, ASSURANCE ASSOCIATE 09/03/2019 D64.9 Anemia, unspecified Maddy Keane, ASSURANCE ASSOCIATE 09/02/2019 J96.01 Acute respiratory failure with hypoxia MARINO Durham 09/02/2019 A41.9 Sepsis, unspecified organism MARINO Durham 09/02/2019 E03.9 Hypothyroidism, unspecified MARINO Durham Plan of Treatment No Information Available Functional Status Description No Information Available Mental Status Description No Information Available Referrals Description No Information Available
--- OUTSIDE RECORDS SUMMARY | 2019-10-11 12:08 | XMS REPORT | Continuity of Care Document ---
:1955 External Reference #:[id number] Author Name Murphy Ortiz M.D. (transmitted by agent of provider Lina Burrows) Address [address] [place] [address] Problems Description No Information Available Social History Type Date Description Comments Sex Unknown Allergies, Adverse Reactions, Alerts Description No Information Available Medications Description No Information Available Immunizations Description No Information Available Vital Signs Description No Information Available Results Description No Information Available Procedures Description No Information Available Medical Devices Description No Information Available Encounters Type Date Location Provider Dx Diagnosis Office Visit 09/10/2019 [facility] Murphy J18.0 Bronchopneumonia, 10:49a marjorie Bermudez M.D. unspecified Hospitalists organism J96.01 Acute respiratory failure with hypoxia F10.20 Alcohol dependence, uncomplicated E03.9 Hypothyroidism, unspecified Office 09/09/2019 [facility] Murphy J18.0 Bronchopneumonia, Visit 10:49a marjorie Bermudez unspecified organism Kendell Santiago F10.10 Alcohol abuse, uncomplicated E03.9 Hypothyroidism, unspecified Office Visit [address] [facility] Ashlyn Hurtado J18.9 Pneumonia, 10:48a Assmarjorie jean M.D. unspecified Hospitalists organism J96.91 Respiratory failure, unspecified with hypoxia E03.9 Hypothyroidism, unspecified Office Visit 09/04/[address] [facility] Sabine J18.9 Pneumonia, 10:03a Assocmarjorie PA unspecified Hospitalists organism R94.6 Abnormal results of thyroid function studies D64.9 Anemia, unspecified E03.9 Hypothyroidism, unspecified C73 Malignant neoplasm of thyroid gland Office Visit 09/02/2019 10:01a [facility] [place] J96.01 Acute respiratory Assoc,MARINO Lanier failure [...] Acute respiratory failure with hypoxia Maddy Keane, TERRAZZO FINISHER 09/03/2019 J18.0 Bronchopneumonia, unspecified organism Maddy Keane, TERRAZZO FINISHER 09/03/2019 E03.9 Hypothyroidism, unspecified Maddy Keane, TERRAZZO FINISHER 09/03/2019 F10.10 Alcohol abuse, uncomplicated Maddy Keane, TERRAZZO FINISHER 09/03/2019 D64.9 Anemia, unspecified Maddy Keane, TERRAZZO FINISHER 09/02/2019 J96.01 Acute respiratory failure with hypoxia MARINO Durham 09/02/2019 A41.9 Sepsis, unspecified organism MARINO Durham 09/02/2019 E03.9 Hypothyroidism, unspecified MARINO Durham Plan of Treatment No Information Available Functional Status Description No Information Available Mental Status Description No Information Available Referrals Description No Information Available
--- OUTSIDE RECORDS SUMMARY | 2019-10-11 12:09 | XMS REPORT | Continuity of Care Document ---
:1955 External Reference #:[id number] Author Name Maddy Keane NP (transmitted by agent of provider Lina Burrows) Address [address] [place] [address] Problems Description No Information Available Social History Type Date Description Comments Sex Unknown Allergies, Adverse Reactions, Alerts Description No Information Available Medications Description No Information Available Immunizations Description No Information Available Vital Signs Description No Information Available Results Description No Information Available Procedures Description No Information Available Medical Devices Description No Information Available Encounters Type Date Location Provider Dx Diagnosis [facility]neum[facility], 10:03a Assoc,MARINO Riddle unspecified Hospitalists organism R94.6 Abnormal results of thyroid function studies D64.9 Anemia, unspecified E03.9 Hypothyroidism, unspecified C73 Malignant neoplasm of thyroid gland Office Visit 09/02/2019 10:01a [facility] [place] J96.01 Acute respiratory Assoc,MARINO Lanier failure with Hospitalists hypoxia A41.9 Sepsis, unspecified organism E03.9 Hypothyroidism, unspecified Assessments Date Code Description Provider 2019 J18.9 Pneumonia, unspecified organism Ashlyn Hurtado M.D. 2019 J96.91 Respiratory failure, unspecified with hypoxia Ashlyn Hurtado M.D. 2019 E03.9 Hypothyroidism, unspecified Ashlyn Hurtado M.D. 09/04/2019 J18.9 Pneumonia, unspecified organism MARINO Franklin 09/04/2019 R94.6 Abnormal results of thyroid function studies MARINO Franklin 09/04/2019 D64.9 Anemia, unspecified MARINO Franklin 09/04/2019 E03.9 Hypothyroidism, unspecified MARINO Franklin 09/04/2019 C73 Malignant neoplasm of thyroid gland MARINO Franklin 09/03/2019 J96.01 Acute respiratory failure with hypoxia Maddy Keane, MEDICAL RADIATION DOSIMETRIST 09/03/2019 J18.0 Bronchopneumonia, unspecified organism Maddy Keane, MEDICAL RADIATION DOSIMETRIST 09/03/2019 E03.9 Hypothyroidism, unspecified Maddy Keane, MEDICAL RADIATION DOSIMETRIST 09/03/2019 F10.10 Alcohol abuse, uncomplicated Maddy Keane, MEDICAL RADIATION DOSIMETRIST 09/03/2019 D64.9 Anemia, unspecified Maddy Keane, MEDICAL RADIATION DOSIMETRIST 09/02/2019 J96.01 Acute respiratory failure with hypoxia MARINO Durham 09/02/2019 A41.9 Sepsis, unspecified organism MARINO Durham 09/02/2019 E03.9 Hypothyroidism, unspecified MARINO Durham Plan of Treatment No Information Available Functional Status Description No Information Available Mental Status Description No Information Available Referrals Description No Information Available
--- OUTSIDE RECORDS SUMMARY | 2019-10-11 12:09 | XMS REPORT | Continuity of Care Document ---
:1955 External Reference #:[id number] Author Name Ashlyn Hurtado M.D. (transmitted by agent of provider Lina Burrows) Address [address] [place] [address] Problems Description No Information Available Social History Type Date Description Comments Sex Unknown Allergies, Adverse Reactions, Alerts Description No Information Available Medications Description No Information Available Immunizations Description No Information Available Vital Signs Description No Information Available Results Description No Information Available Procedures Description No Information Available Medical Devices Description No Information Available Encounters Type Date Location Provider Dx Diagnosis Office Visit 2019 [facility] Ashlyn Hurtado, J18.9 Pneumonia, 10:48a Assocmarjorie M.D. unspecified Hospitalists organism J96.91 Respiratory failure, unspecified with hypoxia E03.9 Hypothyroidism, unspecified Office Visit 09/04/2019 [facility] [place] J18.9 Pneumonia, 10:03a Assoc,MARINO Riddle unspecified Hospitalists organism R94.6 Abnormal results of thyroid function studies D64.9 Anemia, unspecified E03.9 Hypothyroidism, unspecified C73 Malignant neoplasm of thyroid gland Office Visit 09/02/2019 10:01a [facility] [place] J96.01 Acute respiratory Assoc,MARINO Lanier failure with Hospitalists hypoxia A41.9 Sepsis, unspecified organism E03.9 Hypothyroidism, unspecified Assessments Date Code Description Provider 09/09/2019 J18.0 Bronchopneumonia, unspecified organism Murphy Oritz M.D. 09/09/2019 F10.10 Alcohol abuse, uncomplicated Murphy Ortiz M.D. 09/09/2019 E03.9 Hypothyroidism, unspecified Murphy Ortiz M.D. 2019 J18.9 Pneumonia, unspecified organism Ashlyn [...] Acute respiratory failure with hypoxia Maddy Keane, GLAZE WIPER 09/03/2019 J18.0 Bronchopneumonia, unspecified organism Maddy Keane, GLAZE WIPER 09/03/2019 E03.9 Hypothyroidism, unspecified Maddy Keane, GLAZE WIPER 09/03/2019 F10.10 Alcohol abuse, uncomplicated Maddy Keane, GLAZE WIPER 09/03/2019 D64.9 Anemia, unspecified Maddy Keane, GLAZE WIPER 09/02/2019 J96.01 Acute respiratory failure with hypoxia MARINO Durham 09/02/2019 A41.9 Sepsis, unspecified organism MARINO Durham 09/02/2019 E03.9 Hypothyroidism, unspecified MARINO Durham Plan of Treatment No Information Available Functional Status Description No Information Available Mental Status Description No Information Available Referrals Description No Information Available
--- OUTSIDE RECORDS SUMMARY | 2019-10-11 12:09 | XMS REPORT | Continuity of Care Document ---
:1955 External Reference #:[id number] Author Name MARINO Franklin (transmitted by agent of provider Lina Burrows) Address [address] [place] [address] Problems Description No Information Available Social History Type Date Description Comments Sex Unknown Allergies, Adverse Reactions, Alerts Description No Information Available Medications Description No Information Available Immunizations Description No Information Available Vital Signs Description No Information Available Results Description No Information Available Procedures Description No Information Available Medical Devices Description No Information Available Encounters Type Date Location Provider Dx Diagnosis Office Visit 09/04/2019 [facility] [place] J18.9 Pneumonia, 10:03a Assoc,MARINO Riddle unspecified Hospitalists organism R94.6 Abnormal results of thyroid function studies D64.9 Anemia, unspecified E03.9 Hypothyroidism, unspecified C73 Malignant neoplasm of thyroid gland Office Visit 09/02/2019 10:01a [facility] [place] J96.01 Acute respiratory Assoc,MARINO [...] Acute respiratory failure with hypoxia Maddy Keane, BENEFITS SPECIALIST RECRUITER 09/03/2019 J18.0 Bronchopneumonia, unspecified organism Maddy Keane, BENEFITS SPECIALIST RECRUITER 09/03/2019 E03.9 Hypothyroidism, unspecified Maddy Keane, BENEFITS SPECIALIST RECRUITER 09/03/2019 F10.10 Alcohol abuse, uncomplicated Maddy Keane, BENEFITS SPECIALIST RECRUITER 09/03/2019 D64.9 Anemia, unspecified Maddy Keane, BENEFITS SPECIALIST RECRUITER 09/02/2019 J96.01 Acute respiratory failure with hypoxia MARINO Durham 09/02/2019 A41.9 Sepsis, unspecified organism MARINO Durham 09/02/2019 E03.9 Hypothyroidism, unspecified MARINO Durham Plan of Treatment No Information Available Functional Status Description No Information Available Mental Status Description No Information Available Referrals Description No Information Available
--- OUTSIDE RECORDS SUMMARY | 2019-10-11 12:09 | XMS REPORT | Continuity of Care Document ---
:1955 External Reference #:[id number] Author Name MARINO Durham (transmitted by agent of provider Lina Burrows) Address [address] [address] Problems Description No Information Available Social History Type Date Description Comments Sex Unknown Allergies, Adverse Reactions, Alerts Description No Information Available Medications Description No Information Available Immunizations Description No Information Available Vital Signs Description No Information Available Results Description No Information Available Procedures Description No Information Available Medical Devices Description No Information Available Encounters Type Date Location Provider Dx Diagnosis Office Visit 09/04/2019 [facility] [place] J18.9 Pneumonia, 10:03a Assoc,MARINO Riddle unspecified Hospitalists organism R94.6 Abnormal results of thyroid function studies D64.9 Anemia, unspecified E03.9 Hypothyroidism, unspecified C73 Malignant neoplasm of thyroid gland Office Visit 09/02/2019 10:01a [facility] [place] J96.01 Acute respiratory Assoc,MARINO Lanier failure [...] Acute respiratory failure with hypoxia Maddy Keane, UNDERWATER PHOTOGRAPHER 09/03/2019 J18.0 Bronchopneumonia, unspecified organism Maddy Keane, UNDERWATER PHOTOGRAPHER 09/03/2019 E03.9 Hypothyroidism, unspecified Maddy Keane, UNDERWATER PHOTOGRAPHER 09/03/2019 F10.10 Alcohol abuse, uncomplicated Maddy Keane, UNDERWATER PHOTOGRAPHER 09/03/2019 D64.9 Anemia, unspecified Maddy Keane, UNDERWATER PHOTOGRAPHER 09/02/2019 J96.01 Acute respiratory failure with hypoxia [place], MARINO 09/02/2019 A41.9 Sepsis, unspecified organism [place], MARINO 09/02/2019 E03.9 Hypothyroidism, unspecified MARINO Durham Plan of Treatment No Information Available Functional Status Description No Information Available Mental Status Description No Information Available Referrals Description No Information Available
[2019-10-11] MEDS ORDERED: Cefepime 2 GM in Dextrose(*) 2 GM/50 ML BAG IV ONE (12:16)
--- NOTE | 2019-10-11 13:35 | ED ---
Shortness of Breath - HPI Summary HPI Summary: This patient is a 64-year-old otherwise healthy male presenting to the ED with shortness of breath, cough with production, congestion. Patient has been seen in the ED for same 4. Admitted twice. Patient has been on 3 rounds of antibiotics with minimal improvement. However, now pt states this is definitely worse. He states typically he will improve for a few days and then worsen. He has been struggling to breathe at home. He has been using inhalers. He has not COPD, asthma, SOB hx. Has had PNA once 2 years ago. NO cardiac hx. Has had CT chest 1 mo ago which showed a small PNA. Arrives in resp distress on 15L with a sat of 92%. - History of Current Complaint Chief Complaint: EDShortnessOfBreath Time Seen by Provider: 10/11/19 10:51 Hx Obtained From: Patient Onset/Duration: Gradual Onset, Still Present, Worse Since - 3-4 days ago Timing: Constant Current Severity: Severe Associated Signs & Symptoms: Cough (Productive), Fever, Chills, Diaphoresis - Allergy/Home Medications Allergies/Adverse Reactions: Allergies Allergy/AdvReac Type Severity Reaction Status Date / Time No Known Allergies Allergy Verified 10/11/19 11:04 Home Medications: Home Medications Levothyroxine TAB* [Synthroid 125 MCG TAB*] 125 mcg PO 0600 #120 tab 09/04/19 [ Rx Confirmed 10/11/19] Albuterol HFA INHALER* [Ventolin HFA Inhaler*] 2 puff INH Q4H PRN 30 Days #1 mdi 09/10/19 [Rx Confirmed 10/11/19] Loratadine [Claritin] 10 mg PO DAILY 09/14/19 [History Confirmed 10/11/19] Thiamine Mononitrate (Vit B1) [Vitamin B-1] 100 mg PO DAILY 10/11/19 [History Confirmed 10/11/19] PMH/Surg Hx/FS Hx/Imm Hx Previously Healthy: Yes Endocrine/Hematology History: Reports: Hx Thyroid Disease Denies: Hx Diabetes Cardiovascular History: Denies: Hx Deep Vein Thrombosis, Hx Hypertension Respiratory History: Reports: Hx Pneumonia Denies: Hx Asthma, Hx Chronic Obstructive Pulmonary Disease (COPD), Hx Pulmonary Edema Sensory History: Denies: Hx Contacts or Glasses, Hx Hearing Aid Opthamlomology History: Denies: Hx Contacts or Glasses - Cancer History Cancer Type, Location and Year: thyroid - Surgical History Surgery Procedure, Year, and Place: tonsillectomy, corrective eye surgery - Immunization History Hx Pertussis Vaccination: No Immunizations Up to Date: Yes Infectious Disease History: No Infectious Disease History: Denies: Traveled Outside the [place] in Last 30 Days - Family History Known Family History: Positive: Cardiac Disease - Social History Occupation: Employed Full-time Lives: With Family Alcohol Use: Rare Alcohol Amount: 5 beers a day Hx Substance Use: No Substance Use Type: Reports: None Hx Tobacco Use: No Smoking Status (MU): Never Smoked Tobacco Review of Systems Negative: Fever, Chills, Fatigue, Skin Diaphoresis Negative: Palpitations, Chest Pain Positive: Shortness Of Breath, Cough Genitourinary: Negative Positive: no symptoms reported, see HPI Negative: Arthralgia, Myalgia All Other Systems Reviewed And Are Negative: Yes Physical Exam Triage Information Reviewed: Yes Vital Signs On Initial Exam: Initial Vitals Temp Pulse Resp BP Pulse Ox 98.2 F 103 32 117/74 96 10/11/19 10:58 10/11/19 10:58 10/11/19 10:58 10/11/19 10:58 10/11/19 10:58 Vital Signs Reviewed: Yes Appearance: Positive: Ill-Appearing - resp distress Skin: Positive: Dry Neck: Positive: Supple, No Lymphadenopathy Respiratory/Lung Sounds: Positive: Decreased Breath Sounds Cardiovascular: Positive: Pulses are Symmetrical in both Upper and Lower Extremities Musculoskeletal: Positive: Strength/ROM Intact Neurological: Positive: Sensory/Motor Intact, Alert, Oriented to Person Place, Time Psychiatric: Positive: Affect/Mood Appropriate Procedures - Sedation Patient Received Moderate/Deep Sedation with Procedure: No Diagnostics - Vital Signs Vital Signs Temp Pulse Resp BP Pulse Ox 10/11/19 12:28 99 35 116/77 98 10/11/19 12:06 97 37 94 10/11/19 11:58 104 19 125/78 94 10/11/19 10:58 98.2 F 103 32 117/74 96 - Laboratory Lab Results: Lab Results 10/11/19 10/11/19 10/11/19 Range/Units 11:10 11:10 11:10 WBC 19.4 H (3.5-10.8) 10^3/uL RBC 4.29 (4.18-5.48) 10^6 /uL Hgb 13.2 L (14.0-18.0) g/dL Hct 40 L (42-52) % MCV 93 (80-94) fL MCH 31 (27-31) pg MCHC 33 (31-36) g/dL RDW 14 (10-15) % Plt Count 520 H (150-450) 10^3/uL MPV 7.8 (7.4-10.4) fL Neut % (Auto) 86.0 % Lymph % (Auto) 5.9 % [place] % (Auto) 6.0 % Eos % (Auto) 1.7 % Baso % (Auto) 0.4 % Absolute Neuts (auto) 16.7 H (1.5-7.7) 10^3/ul Absolute Lymphs (auto) 1.1 (1.0-4.8) 10^3/ul Absolute Monos (auto) 1.2 H (0-0.8) 10^3/ul Absolute Eos (auto) 0.3 (0-0.6) 10^3/ul Absolute Basos (auto) 0.1 (0-0.2) 10^3/ul Absolute Nucleated RBC 0.0 10^3/ul Nucleated RBC % 0.0 Sodium 131 L (135-145) mmol/L Potassium 4.0 (3.5-5.0) mmol/L Chloride 99 L (101-111) mmol/L Carbon Dioxide 23 (22-32) mmol/L Anion Gap 9 (2-11) mmol/L BUN 16 (6-24) mg/dL Creatinine 1.05 (0.67-1.17) mg/dL Est GFR ( Amer) 86.3 (>60) Est GFR (Non-Af Amer) 71.3 (>60) BUN/Creatinine Ratio 15.2 (8-20) Glucose 95 (70-100) mg/dL Lactic Acid 1.1 (0.5-2.0) mmol/L Calcium 9.5 (8.6-10.3) mg/dL Total Bilirubin 0.80 (0.2-1.0) mg/dL AST 12 L (13-39) U/L ALT 9 (7-52) U/L Alkaline Phosphatase 76 (34-104) U/L Troponin I 0.11 H* (<0.03) ng/mL C-Reactive Protein 155.06 H (<8.01) mg/L Total Protein 7.8 (6.4-8.9) g/dL Albumin 3.8 (3.2-5.2) g/dL Globulin 4.0 (2-4) g/dL Albumin/Globulin Ratio 1.0 (1-3) Result Diagrams: 10/11/19 11:10 10/11/19 11:10 Lab Statement: Any lab studies that have been ordered have been reviewed, and results considered in the medical decision making process. Course/Dx - Course Course Of Treatment: This patient is a 64-year-old otherwise healthy male presenting to the ED with shortness of breath, cough with production, congestion. Patient has been seen in the ED for same 4. Admitted twice. Patient has been on 3 rounds of antibiotics with minimal improvement. He states typically he will improve for a few days and then worsen. He has been struggling to breathe at home. He has been using inhalers. He has not COPD, asthma, SOB hx. Has had PNA once 2 years ago. NO cardiac hx. Has had CT chest 1 mo ago which showed a small PNA. Arrives in resp distress on 15L with a sat of 92%. EKG shows NSR. Trop 0.00. WBC 19,000 with a L shift, CRP of 155 , sodium 131. Titrated O2. 85% on room air. Pt at 92% on non-rebreather. Pt likely has PNA. Given Levaquin and cefepime. Sputum ordered. Legionella and strep antigens pending. Tested for COVID and was negative. Pt states he feels so SOB that he becomes dizzy and lightheadedness. He has been around anyone else sick. Lives with who is not ill. Discussed with hospitalist group who will admit for PNA and hypoxia. Pt is again tested for COVID. Precautions were taken. - Diagnoses Differential Diagnosis/HQI/PQRI: Positive: Pneumonia Provider Diagnoses: PNA (pneumonia) - Physician Notifications Discussed Care of Patient With: Elba Menchaca Instructed by Provider To: Admit As Inpatient - Critical Care Time Critical Care Time: 30-74 min Critical Care Statement: Critical care time is provided exclusive of any time spent performing procedures. Discharge ED - Sign-Out/Discharge Documenting (check all that apply): Patient Departure - Discharge Plan Condition: Fair Disposition: ADMITTED TO [facility] - Billing Disposition and Condition Condition: FAIR Disposition: Admitted to [facility] - Attestation Statements Provider Attestation: I was available for consult. This patient was seen by the [facility]. The patient was not presented to, seen by, or examined by me. Frederic Samuels MD
[2019-10-11 13:52] LABS: Troponin I 0.01 ng/mL (<0.03)
[2019-10-11] MEDS ORDERED: Acetaminophen TAB* 325 MG PO PRN (14:32)
[2019-10-11] MEDS ORDERED: Ondansetron INJ* 2 MG/ML VIAL IV PRN (14:32)
[2019-10-11] MEDS ORDERED: Benzonatate CAP* 100 MG PO PRN (14:32)
[2019-10-11 14:34] LABS: TSH (Thyroid Stimulating Horm) 0.38 mcIU/mL (0.34-5.60)
[2019-10-11] MEDS ORDERED: Albuterol HFA INHALER* 8 gm MDI INH PRN (14:36)
[2019-10-11 15:02] LABS: Urine Appearance Clear; Urine Bilirubin Negative (Negative); Urine Blood Negative (Negative); Urine Color Yellow; Urine Glucose Negative (Negative); Urine Ketones Negative (Negative); Urine Nitrite Negative (Negative); Urine Protein Negative (Negative); Urine Specific Gravity 1.005 (1.010-1.030); Urine Urobilinogen Negative (Negative)
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
[2019-10-11] MEDS: DOXYcycline IV* 100 MG in NS 0.9% 250 ML* 250 ML IVPB SCH ×2 (16:45→17:05)
[2019-10-11] MEDS: Enoxaparin(*) 40 MG/0.4 ML SYR SUBCUT SCH (18:11)
[2019-10-11] MEDS: methylPREDNISolone 125 MG* 2 ML VIAL IV SCH ×2 (18:11→23:53)
[2019-10-11 19:57] LABS: Rheumatoid Factor 16 IU/mL (<15)
[2019-10-11] MEDS: guaiFENesin ER TAB 600 MG PO SCH (20:50)
[2019-10-11] MEDS ORDERED: guaiFENesin ER TAB 600 MG PO SCH (21:00)
[2019-10-11] MEDS: Cefepime(*) 2 GM in NS 0.9% 50 ML* 50 ML IVPB SCH (23:53)
[2019-10-12] MEDS: DOXYcycline IV* 100 MG in NS 0.9% 250 ML* 250 ML IVPB SCH ×2 (03:48→15:25)
[2019-10-12] MEDS: Levothyroxine TAB* 125 MCG TAB PO SCH (05:06)
[2019-10-12 07:10] LABS: ABS Basophils 0.1 10^3/ul (0-0.2); ABS Lymphocytes 0.9 10^3/ul (1.0-4.8); ABS Monocytes 0.4 10^3/ul (0-0.8); ABS Neutrophils 11.6 10^3/ul (1.5-7.7); Hematocrit 39 % (42-52); Hemoglobin 12.9 g/dL (14.0-18.0); Lymphocyte % 6.7 %; Mean Corpuscular HGB Conc 34 g/dL (31-36); Mean Corpuscular Hemoglobin 31 pg (27-31); Mean Corpuscular Volume 94 fL (80-94); Mean Platelet Volume 8.2 fL (7.4-10.4); Platelet Count 456 10^3/uL (150-450); Red Blood Count 4.11 10^6 /uL (4.18-5.48); Red Cell Distribution Width 14 % (10-15); White Blood Count 12.9 10^3/uL (3.5-10.8)
[2019-10-12 07:23] LABS: BUN/Creatinine Ratio 23.2 (8-20); C Reactive Protein 134.44 mg/L (<8.01); Calcium 9.1 mg/dL (8.6-10.3); EGFR African American 114.8 (>60); EGFR Non-African American 94.9 (>60); Magnesium 2.1 mg/dL (1.9-2.7); Potassium 4.3 mmol/L (3.5-5.0)
[2019-10-12] MEDS: Thiamine TAB* 100 MG TAB PO SCH (07:32)
[2019-10-12] MEDS: Cetirizine* 10 MG TAB PO SCH (07:32)
[2019-10-12] MEDS: Pantoprazole TAB * 40 MG TAB PO SCH (07:32)
[2019-10-12] MEDS: guaiFENesin ER TAB 600 MG PO SCH ×2 (07:32→20:25)
[2019-10-12] MEDS: methylPREDNISolone 125 MG* 2 ML VIAL IV SCH ×3 (07:32→22:50)
[2019-10-12] MEDS ORDERED: Hydroxychloroquine TAB* 200 MG PO SCH (09:00)
--- NOTE | 2019-10-12 10:26 | PN ---
Subjective Date of Service: 10/12/19 Interval History: Patient is feeling somewhat better today, but feels like most of his improvement is related to the oxygen and not the treatments. Patient denies F/C , N/V, abdominal pain, diarrhea, or other pain. Patient is very anxious to get a diagnosis and is frustrated about not getting better. Family History: Unchanged from Admission Social History: Unchanged from Admission Past Medical History: Unchanged from Admission Objective Active Medications: Acetaminophen (Tylenol Tab*) 650 mg PO Q6H PRN PRN Reason: MILD PAIN or TEMP > 100.4 Albuterol (Ventolin Hfa Inhaler*) 2 puff INH Q4H PRN PRN Reason: SOB/WHEEZING Last Admin: 10/11/19 19:20 Dose: 2 puff Benzonatate (Tessalon Cap*) 100 mg PO BID PRN PRN Reason: COUGH Last Admin: 10/11/19 20:50 Dose: 100 mg Cetirizine HCl (Zyrtec*) 10 mg PO DAILY [facility] Last Admin: 10/12/19 07:32 Dose: 10 mg Enoxaparin Sodium (Lovenox(*)) 40 mg SUBCUT Q24H [facility] Last Admin: 10/11/19 18:11 Dose: 40 mg Guaifenesin (Mucinex*) 1,200 mg PO BID [facility] Last Admin: 10/12/19 07:32 Dose: 1,200 mg Cefepime HCl 2 gm/ Sodium (Chloride) 50 mls @ 100 mls/hr IVPB Q12H [facility] Last Admin: 10/11/19 23:53 Dose: 100 mls/hr Doxycycline Hyclate 100 mg/ (Sodium Chloride) 250 mls @ 250 mls/hr IVPB Q12H [facility] Last Admin: 10/12/19 03:48 Dose: 250 mls/hr Levothyroxine Sodium (Synthroid Tab*) 125 mcg PO DAILY@0600 [facility] Last Admin: 10/12/19 05:06 Dose: 125 mcg Methylprednisolone Sodium Succinate (Solu-Medrol 125mg *) 60 mg IV Q8H [facility] Last Admin: 10/12/19 07:32 Dose: 60 mg Ondansetron HCl (Zofran Inj*) 4 mg IV Q6H PRN PRN Reason: NAUSEA Pantoprazole Sodium (Protonix Tab*) 40 mg PO DAILY [facility] Last Admin: 10/12/19 07:32 Dose: 40 mg Thiamine HCl (Vitamin B-1 Tab*) 100 mg PO DAILY [facility] Last Admin: 10/12/19 07:32 Dose: 100 mg Vital Signs - 8 hr 10/12/19 10/12/19 10/12/19 03:48 07:15 07:47 Temperature 97.9 F 97.5 F Pulse Rate 81 78 Respiratory 18 22 22 Rate Blood Pressure 103/74 122/74 (mmHg) O2 Sat by Pulse 96 96 Oximetry Oxygen Devices in Use Now: OxyMask Appearance: Patient is a 64yo male who appears stated age and is sitting in the bed in [facility]. Eyes: No Scleral Icterus, PERRLA Ears/Nose/Mouth/Throat: NL Teeth, Lips, Gums, Clear Oropharnyx, Mucous Membranes Moist Neck: NL Appearance and Movements; NL JVP, Trachea Midline Respiratory: Symmetrical Chest Expansion and Respiratory Effort, - - Rales only in RLL Cardiovascular: NL Sounds; No Murmurs; No JVD, RRR, No Edema Abdominal: NL Sounds; No Tenderness; No Distention, No Hepatosplenomegaly Lymphatic: No Cervical Adenopathy Extremities: No Edema, No Clubbing, Cyanosis, - - No palpable synovitis in small joints of the hands. Skin: No Rash or Ulcers, No Nodules or Sclerosis Neurological: Alert and Oriented x 3, NL Sensation, NL Muscle Strength and Tone , - - CN II-XII intact. Result Diagrams: 10/12/19 06:50 10/12/19 06:50 Additional Lab and Data: Lab Results 10/11/19 10/11/19 10/11/19 Range/Units 11:10 11:10 11:10 WBC 19.4 H (3.5-10.8) 10^3/uL RBC 4.29 (4.18-5.48) 10^6 /uL Hgb 13.2 L (14.0-18.0) g/dL Hct 40 L (42-52) % MCV 93 (80-94) fL MCH 31 (27-31) pg MCHC 33 (31-36) g/dL RDW 14 (10-15) % Plt Count 520 H (150-450) 10^3/uL MPV 7.8 (7.4-10.4) fL Neut % (Auto) 86.0 % Lymph % (Auto) 5.9 % [place] % (Auto) 6.0 % Eos % (Auto) 1.7 % Baso % (Auto) 0.4 % Absolute Neuts (auto) 16.7 H (1.5-7.7) 10^3/ul Absolute Lymphs (auto) 1.1 (1.0-4.8) 10^3/ul Absolute Monos (auto) 1.2 H (0-0.8) 10^3/ul Absolute Eos (auto) 0.3 (0-0.6) 10^3/ul Absolute Basos (auto) 0.1 (0-0.2) 10^3/ul Absolute Nucleated RBC 0.0 10^3/ul Nucleated RBC % 0.0 Sodium 131 L (135-145) mmol/L Potassium 4.0 (3.5-5.0) mmol/L Chloride 99 L (101-111) mmol/L Carbon Dioxide 23 (22-32) mmol/L Anion Gap 9 (2-11) mmol/L BUN 16 (6-24) mg/dL Creatinine 1.05 (0.67-1.17) mg/dL Est GFR ( Amer) 86.3 (>60) Est GFR (Non-Af Amer) 71.3 (>60) BUN/Creatinine Ratio 15.2 (8-20) Glucose 95 (70-100) mg/dL Lactic Acid 1.1 (0.5-2.0) mmol/L Calcium 9.5 (8.6-10.3) mg/dL Total Bilirubin 0.80 (0.2-1.0) mg/dL AST 12 L (13-39) U/L ALT 9 (7-52) U/L Alkaline Phosphatase 76 (34-104) U/L Troponin I 0.11 H* (<0.03) ng/mL C-Reactive Protein 155.06 H (<8.01) mg/L Total Protein 7.8 (6.4-8.9) g/dL Albumin 3.8 (3.2-5.2) g/dL Globulin 4.0 (2-4) g/dL Albumin/Globulin Ratio 1.0 (1-3) Microbiology and Other Data: Microbiology 10/11/19 11:30 Gram Stain - Final Sputum Expectorated 10/11/19 13:02 Legionella Urinary Antigen - Final Urine Negative Legionella Antigen Streptococcus pneumoniae Ag Screen - Final Negative S. pneumo Antigen Assess/Plan/Problems-Billing Assessment: Patient is a 64yo male with a PMH only for Hypothyroidism S/P thyroidectomy, here for his third admission in 2 months for shortness of breath currently being treated with high dose steroids and antibiotics for the possibility of ILD or treatment failure for pneumonia. - Patient Problems (1) Acute respiratory failure with hypoxia Current Visit: No Status: Acute Code(s): J96.01 - ACUTE RESPIRATORY FAILURE WITH HYPOXIA SNOMED Code(s): 51025212 Comment: - Originally was on 10L via face mask. Wean as Tolerated - Unclear cause, concern for ILD vs Pneumonia with treatment failure (2) Bronchopneumonia Current Visit: No Status: Acute Code(s): J18.0 - BRONCHOPNEUMONIA, UNSPECIFIED ORGANISM SNOMED Code(s): 987469632 Comment: - Questionable diagnosis given treatment failure on multiple antibiotics - Flu negative, COVID previously negative, Repeat pending - On Cefepime and doxycycline for coverage of Pseudomonas(Previously on Levaquin ), MRSA and atypicals - High dose steroids for concern for ILD - CT chest when COVID ruled out. (3) ETOH abuse Current Visit: No Status: Acute Code(s): F10.10 - ALCOHOL ABUSE, UNCOMPLICATED SNOMED Code(s): 02869513 Comment: - No longer drinking due to breathing issues - States alcohol makes breathing worse (4) Full code status Current Visit: No Status: Acute Code(s): Z78.9 - OTHER SPECIFIED HEALTH STATUS SNOMED Code(s): 763209851 (5) Hypothyroid Current Visit: No Status: Acute Code(s): E03.9 - HYPOTHYROIDISM, UNSPECIFIED SNOMED Code(s): 71365782 Comment: - TSH on low end of normal, continue 125mcg daily - Follow up outpatient. (6) DVT prophylaxis Current Visit: No Status: Acute Code(s): Z29.9 - ENCOUNTER FOR PROPHYLACTIC MEASURES, UNSPECIFIED SNOMED Code(s): 793811560 Comment: -Continue lovenox. Status and Disposition: Inpatient for respiratory failure.
[2019-10-12] MEDS: Cefepime(*) 2 GM in NS 0.9% 50 ML* 50 ML IVPB SCH (12:28)
[2019-10-12] MEDS: Enoxaparin(*) 40 MG/0.4 ML SYR SUBCUT SCH (15:24)
[2019-10-13] MEDS: Cefepime(*) 2 GM in NS 0.9% 50 ML* 50 ML IVPB SCH ×2 (00:47→13:34)
[2019-10-13] MEDS: DOXYcycline IV* 100 MG in NS 0.9% 250 ML* 250 ML IVPB SCH ×2 (04:44→15:23)
[2019-10-13] MEDS: Levothyroxine TAB* 125 MCG TAB PO SCH (06:13)
[2019-10-13 06:37] LABS: ABS Lymphocytes 0.7 10^3/ul (1.0-4.8); ABS Monocytes 0.8 10^3/ul (0-0.8); Hematocrit 35 % (42-52); Hemoglobin 11.7 g/dL (14.0-18.0); Mean Corpuscular HGB Conc 34 g/dL (31-36); Mean Corpuscular Hemoglobin 31 pg (27-31); Mean Corpuscular Volume 93 fL (80-94); Mean Platelet Volume 8.2 fL (7.4-10.4); Platelet Count 464 10^3/uL (150-450); Red Blood Count 3.73 10^6 /uL (4.18-5.48); Red Cell Distribution Width 14 % (10-15); White Blood Count 18.5 10^3/uL (3.5-10.8)
[2019-10-13 06:55] LABS: BUN/Creatinine Ratio 27.6 (8-20); Calcium 8.7 mg/dL (8.6-10.3); EGFR African American 107.2 (>60); EGFR Non-African American 88.6 (>60); Magnesium 2.1 mg/dL (1.9-2.7); Potassium 4.8 mmol/L (3.5-5.0)
[2019-10-13] MEDS: Cetirizine* 10 MG TAB PO SCH (08:35)
[2019-10-13] MEDS: Pantoprazole TAB * 40 MG TAB PO SCH (08:35)
[2019-10-13] MEDS: Thiamine TAB* 100 MG TAB PO SCH (08:35)
[2019-10-13] MEDS: guaiFENesin ER TAB 600 MG PO SCH ×2 (08:35→20:47)
[2019-10-13] MEDS: methylPREDNISolone 125 MG* 2 ML VIAL IV SCH ×2 (08:36→14:47)
[2019-10-13] MEDS: Enoxaparin(*) 40 MG/0.4 ML SYR SUBCUT SCH (14:47)
[2019-10-13 18:32] LABS: Procalcitonin, S <0.10 ng/mL (<=0.15)
[2019-10-13 19:01] LABS: Aspergillus fumigatus IgG Ab 12.8 mg/L (<=102); Micropolyspora faeni IgG Ab 7.2 mg/L (<=13.2); Thermoactinomyces vulgaris IgG 10.6 mg/L (<=23.9)
[2019-10-13 20:01] LABS: Cyclic Citrullinated Pept IgG <15.6 U
--- NOTE | 2019-10-13 20:36 | PN ---
Subjective Date of Service: 10/13/19 Interval History: Patient continue to report shortness of breath, worse with talking. Denies chest pain. Denies abd pain, n/v/d. Denies fever or chills. Patient was able to carry on conversation with completes sentences. Does appear to be short of breath at times. reviewed CT report with patient. Family History: Unchanged from Admission Social History: Unchanged from Admission Past Medical History: Unchanged from Admission Objective Active Medications: Acetaminophen (Tylenol Tab*) 650 mg PO Q6H PRN PRN Reason: MILD PAIN or TEMP > 100.4 Albuterol (Ventolin Hfa Inhaler*) 2 puff INH Q4H PRN PRN Reason: SOB/WHEEZING Last Admin: 10/11/19 19:20 Dose: 2 puff Benzonatate (Tessalon Cap*) 100 mg PO BID PRN PRN Reason: COUGH Last Admin: 10/11/19 20:50 Dose: 100 mg Cetirizine HCl (Zyrtec*) 10 mg PO DAILY [facility] Last Admin: 10/13/19 08:35 Dose: 10 mg Enoxaparin Sodium (Lovenox(*)) 40 mg SUBCUT Q24H [facility] Last Admin: 10/13/19 14:47 Dose: 40 mg Guaifenesin (Mucinex*) 1,200 mg PO BID [facility] Last Admin: 10/13/19 08:35 Dose: 1,200 mg Cefepime HCl 2 gm/ Sodium (Chloride) 50 mls @ 100 mls/hr IVPB Q12H [facility] Last Admin: 10/13/19 13:34 Dose: 100 mls/hr Doxycycline Hyclate 100 mg/ (Sodium Chloride) 250 mls @ 250 mls/hr IVPB Q12H [facility] Last Admin: 10/13/19 15:23 Dose: 250 mls/hr Levothyroxine Sodium (Synthroid Tab*) 125 mcg PO DAILY@0600 [facility] Last Admin: 10/13/19 06:13 Dose: 125 mcg Methylprednisolone Sodium Succinate (Solu-Medrol 125mg *) 60 mg IV Q8H [facility] Last Admin: 10/13/19 14:47 Dose: 60 mg Ondansetron HCl (Zofran Inj*) 4 mg IV Q6H PRN PRN Reason: NAUSEA Pantoprazole Sodium (Protonix Tab*) 40 mg PO DAILY [facility] Last Admin: 10/13/19 08:35 Dose: 40 mg Thiamine HCl (Vitamin B-1 Tab*) 100 mg PO DAILY [facility] Last Admin: 10/13/19 08:35 Dose: 100 mg Vital Signs - 8 hr 10/13/19 15:15 Temperature 98 F Pulse Rate 74 Respiratory 16 Rate Blood Pressure 113/62 (mmHg) O2 Sat by Pulse 93 Oximetry Oxygen Devices in Use Now: Nasal Cannula Appearance: alert, oriented x3 , well developed mal, no acute distress. Eyes: No Scleral Icterus Ears/Nose/Mouth/Throat: Clear Oropharnyx, Mucous Membranes Moist Neck: NL Appearance and Movements; NL JVP, Trachea Midline Respiratory: Symmetrical Chest Expansion and Respiratory Effort, - - diminshed breath sounds bilat Cardiovascular: NL Sounds; No Murmurs; No JVD, No Edema Abdominal: NL Sounds; No Tenderness; No Distention Extremities: No Edema, No Clubbing, Cyanosis Skin: No Rash or Ulcers Neurological: Alert and Oriented x 3 Nutrition: Taking PO's Result Diagrams: 10/13/19 06:07 10/13/19 06:07 Additional Lab and Data: Lab Results 10/11/19 10/11/19 10/11/19 Range/Units 11:10 11:10 11:10 WBC 19.4 H (3.5-10.8) 10^3/uL RBC 4.29 (4.18-5.48) 10^6 /uL Hgb 13.2 L (14.0-18.0) g/dL Hct 40 L (42-52) % MCV 93 (80-94) fL MCH 31 (27-31) pg MCHC 33 (31-36) g/dL RDW 14 (10-15) % Plt Count 520 H (150-450) 10^3/uL MPV 7.8 (7.4-10.4) fL Neut % (Auto) 86.0 % Lymph % (Auto) 5.9 % [place] % (Auto) 6.0 % Eos % (Auto) 1.7 % Baso % (Auto) 0.4 % Absolute Neuts (auto) 16.7 H (1.5-7.7) 10^3/ul Absolute Lymphs (auto) 1.1 (1.0-4.8) 10^3/ul Absolute Monos (auto) 1.2 H (0-0.8) 10^3/ul Absolute Eos (auto) 0.3 (0-0.6) 10^3/ul Absolute Basos (auto) 0.1 (0-0.2) 10^3/ul Absolute Nucleated RBC 0.0 10^3/ul Nucleated RBC % 0.0 Sodium 131 L (135-145) mmol/L Potassium 4.0 (3.5-5.0) mmol/L Chloride 99 L (101-111) mmol/L Carbon Dioxide 23 (22-32) mmol/L Anion Gap 9 (2-11) mmol/L BUN 16 (6-24) mg/dL Creatinine 1.05 (0.67-1.17) mg/dL Est GFR ( Amer) 86.3 (>60) Est GFR (Non-Af Amer) 71.3 (>60) BUN/Creatinine Ratio 15.2 (8-20) Glucose 95 (70-100) mg/dL Lactic Acid 1.1 (0.5-2.0) mmol/L Calcium 9.5 (8.6-10.3) mg/dL Total Bilirubin 0.80 (0.2-1.0) mg/dL AST 12 L (13-39) U/L ALT 9 (7-52) U/L Alkaline Phosphatase 76 (34-104) U/L Troponin I 0.11 H* (<0.03) ng/mL C-Reactive Protein 155.06 H (<8.01) mg/L Total Protein 7.8 (6.4-8.9) g/dL Albumin 3.8 (3.2-5.2) g/dL Globulin 4.0 (2-4) g/dL Albumin/Globulin Ratio 1.0 (1-3) Microbiology and Other Data: Microbiology 10/11/19 11:30 Gram Stain - Final Sputum Expectorated 10/11/19 13:02 Legionella Urinary Antigen - Final Urine Negative Legionella Antigen Streptococcus pneumoniae Ag Screen - Final Negative S. pneumo Antigen Assess/Plan/Problems-Billing Assessment: Patient is a 64yo male with a PMH only for Hypothyroidism S/P thyroidectomy, here for his third admission in 2 months for shortness of breath currently being treated with high dose steroids and antibiotics for the possibility of ILD or treatment failure for pneumonia. - Patient Problems (1) Acute respiratory failure with hypoxia Status: Acute Code(s): J96.01 - ACUTE RESPIRATORY FAILURE WITH HYPOXIA SNOMED Code(s): 54535043 Comment: - Originally was on 10L via face mask. Weaned to 4 liters - Unclear cause, concern for ILD vs Pneumonia with treatment failure - CT showing pneumonia vs pneumonitis - will continue doxycycline and cefepime, and steroids - spoke to Dr. Willingham - who will see the patient in consultation (2) Bronchopneumonia Status: Acute Code(s): J18.0 - BRONCHOPNEUMONIA, UNSPECIFIED ORGANISM SNOMED Code(s): 377697430 Comment: - Questionable diagnosis given treatment failure on multiple antibiotics - Flu negative, COVID previously negative, Repeat negative - On Cefepime and doxycycline for coverage of Pseudomonas(Previously on Levaquin ), MRSA and atypicals - High dose steroids for concern for ILD - CT chest - lung findings concerning for etiology for atypical pneumonia, pulmonary edema, hypersensitivy pneumonitis, bronchiolitis obliterans - spoke to Maulik Barrios who will see the patient in consultation (3) ETOH abuse Status: Acute Code(s): F10.10 - ALCOHOL ABUSE, UNCOMPLICATED SNOMED Code(s) : 23841097 Comment: - No longer drinking due to breathing issues - States alcohol makes breathing worse (4) Hypothyroid Status: Acute Code(s): E03.9 - HYPOTHYROIDISM, UNSPECIFIED SNOMED Code(s): 22286065 Comment: - TSH on low end of normal at 0.38, continue 125mcg daily - Follow up outpatient. (5) DVT prophylaxis Status: Acute Code(s): Z29.9 - ENCOUNTER FOR PROPHYLACTIC MEASURES, UNSPECIFIED SNOMED Code(s): 295745558 Comment: -Continue lovenox. (6) Full code status Status: Acute Code(s): Z78.9 - OTHER SPECIFIED HEALTH STATUS SNOMED Code(s) : 315725948 Status and Disposition: Inpatient for respiratory failure, will discharge home when medically stable.
[2019-10-14] MEDS: methylPREDNISolone 125 MG* 2 ML VIAL IV SCH ×2 (00:09→08:31)
[2019-10-14] MEDS: Cefepime(*) 2 GM in NS 0.9% 50 ML* 50 ML IVPB SCH ×2 (00:11→13:07)
[2019-10-14] MEDS: DOXYcycline IV* 100 MG in NS 0.9% 250 ML* 250 ML IVPB SCH ×2 (03:55→15:29)
[2019-10-14] MEDS: Levothyroxine TAB* 125 MCG TAB PO SCH (05:50)
[2019-10-14] MEDS: guaiFENesin ER TAB 600 MG PO SCH ×2 (08:30→20:10)
[2019-10-14] MEDS: Cetirizine* 10 MG TAB PO SCH (08:30)
[2019-10-14] MEDS: Thiamine TAB* 100 MG TAB PO SCH (08:30)
[2019-10-14] MEDS: Pantoprazole TAB * 40 MG TAB PO SCH (08:30)
[2019-10-14] MEDS ORDERED: methylPREDNISolone 125 MG* 2 ML VIAL IV SCH (11:00)
--- NOTE | 2019-10-14 12:52 | PN ---
Subjective Date of Service: 10/14/19 Interval History: Reports that he is feeling better today, reports that breathing is improved. Reports that he continue to have worsening shortness of breath with exertion. Denies fever or chills. Denies abd pain , n/v/d. Patient updated on plan, will decrease steroids and attempt to wean o2 today. Family History: Unchanged from Admission Social History: Unchanged from Admission Past Medical History: Unchanged from Admission Objective Active Medications: Acetaminophen (Tylenol Tab*) 650 mg PO Q6H PRN PRN Reason: MILD PAIN or TEMP > 100.4 Last Admin: 10/14/19 00:27 Dose: 650 mg Albuterol (Ventolin Hfa Inhaler*) 2 puff INH Q4H PRN PRN Reason: SOB/WHEEZING Last Admin: 10/11/19 19:20 Dose: 2 puff Benzonatate (Tessalon Cap*) 100 mg PO BID PRN PRN Reason: COUGH Last Admin: 10/11/19 20:50 Dose: 100 mg Cetirizine HCl (Zyrtec*) 10 mg PO DAILY [facility] Last Admin: 10/14/19 08:30 Dose: 10 mg Enoxaparin Sodium (Lovenox(*)) 40 mg SUBCUT Q24H [facility] Last Admin: 10/13/19 14:47 Dose: 40 mg Guaifenesin (Mucinex*) 1,200 mg PO BID [facility] Last Admin: 10/14/19 08:30 Dose: 1,200 mg Cefepime HCl 2 gm/ Sodium (Chloride) 50 mls @ 100 mls/hr IVPB Q12H [facility] Last Admin: 10/14/19 00:11 Dose: 100 mls/hr Doxycycline Hyclate 100 mg/ (Sodium Chloride) 250 mls @ 250 mls/hr IVPB Q12H [facility] Last Admin: 10/14/19 03:55 Dose: 250 mls/hr Levothyroxine Sodium (Synthroid Tab*) 125 mcg PO DAILY@0600 [facility] Last Admin: 10/14/19 05:50 Dose: 125 mcg Methylprednisolone Sodium Succinate (Solu-Medrol 125mg *) 40 mg IV Q12H [facility] Last Admin: 10/14/19 11:09 Dose: Not Given Ondansetron HCl (Zofran Inj*) 4 mg IV Q6H PRN PRN Reason: NAUSEA Pantoprazole Sodium (Protonix Tab*) 40 mg PO DAILY [facility] Last Admin: 10/14/19 08:30 Dose: 40 mg Thiamine HCl (Vitamin B-1 Tab*) 100 mg PO DAILY [facility] Last Admin: 10/14/19 08:30 Dose: 100 mg Vital Signs - 8 hr 10/14/19 10/14/19 07:15 08:00 Temperature 97.9 F Pulse Rate 60 Respiratory 20 20 Rate Blood Pressure 112/58 (mmHg) O2 Sat by Pulse 96 Oximetry Oxygen Devices in Use Now: Nasal Cannula Appearance: alert, sitting in the chair, no acute distress Eyes: No Scleral Icterus Ears/Nose/Mouth/Throat: Clear Oropharnyx, Mucous Membranes Moist Neck: NL Appearance and Movements; NL JVP, Trachea Midline Respiratory: Symmetrical Chest Expansion and Respiratory Effort, - Cardiovascular: NL Sounds; No Murmurs; No JVD, No Edema Abdominal: NL Sounds; No Tenderness; No Distention Lymphatic: No Cervical Adenopathy Extremities: No Edema, No Clubbing, Cyanosis Skin: No Rash or Ulcers Neurological: Alert and Oriented x 3 Nutrition: Taking PO's Result Diagrams: 10/13/19 06:07 10/13/19 06:07 Additional Lab and Data: Lab Results 10/11/19 10/11/19 10/11/19 Range/Units 11:10 11:10 11:10 WBC 19.4 H (3.5-10.8) 10^3/uL RBC 4.29 (4.18-5.48) 10^6 /uL Hgb 13.2 L (14.0-18.0) g/dL Hct 40 L (42-52) % MCV 93 (80-94) fL MCH 31 (27-31) pg MCHC 33 (31-36) g/dL RDW 14 (10-15) % Plt Count 520 H (150-450) 10^3/uL MPV 7.8 (7.4-10.4) fL Neut % (Auto) 86.0 % Lymph % (Auto) 5.9 % [place] % (Auto) 6.0 % Eos % (Auto) 1.7 % Baso % (Auto) 0.4 % Absolute Neuts (auto) 16.7 H (1.5-7.7) 10^3/ul Absolute Lymphs (auto) 1.1 (1.0-4.8) 10^3/ul Absolute Monos (auto) 1.2 H (0-0.8) 10^3/ul Absolute Eos (auto) 0.3 (0-0.6) 10^3/ul Absolute Basos (auto) 0.1 (0-0.2) 10^3/ul Absolute Nucleated RBC 0.0 10^3/ul Nucleated RBC % 0.0 Sodium 131 L (135-145) mmol/L Potassium 4.0 (3.5-5.0) mmol/L Chloride 99 L (101-111) mmol/L Carbon Dioxide 23 (22-32) mmol/L Anion Gap 9 (2-11) mmol/L BUN 16 (6-24) mg/dL Creatinine 1.05 (0.67-1.17) mg/dL Est GFR ( Amer) 86.3 (>60) Est GFR (Non-Af Amer) 71.3 (>60) BUN/Creatinine Ratio 15.2 (8-20) Glucose 95 (70-100) mg/dL Lactic Acid 1.1 (0.5-2.0) mmol/L Calcium 9.5 (8.6-10.3) mg/dL Total Bilirubin 0.80 (0.2-1.0) mg/dL AST 12 L (13-39) U/L ALT 9 (7-52) U/L Alkaline Phosphatase 76 (34-104) U/L Troponin I 0.11 H* (<0.03) ng/mL C-Reactive Protein 155.06 H (<8.01) mg/L Total Protein 7.8 (6.4-8.9) g/dL Albumin 3.8 (3.2-5.2) g/dL Globulin 4.0 (2-4) g/dL Albumin/Globulin Ratio 1.0 (1-3) Microbiology and Other Data: Microbiology 10/11/19 11:30 Gram Stain - Final Sputum Expectorated 10/11/19 13:02 Legionella Urinary Antigen - Final Urine Negative Legionella Antigen Streptococcus pneumoniae Ag Screen - Final Negative S. pneumo Antigen Assess/Plan/Problems-Billing Assessment: Patient is a 64yo male with a PMH only for Hypothyroidism S/P thyroidectomy, here for his third admission in 2 months for shortness of breath currently being treated with high dose steroids and antibiotics for the possibility of ILD or treatment failure for pneumonia. - Patient Problems (1) Acute respiratory failure with hypoxia Current Visit: No Status: Acute Code(s): J96.01 - ACUTE RESPIRATORY FAILURE WITH HYPOXIA SNOMED Code(s): 28503407 Comment: - Originally was on 10L via face mask, will continue to wean o2 today - Unclear cause, concern for ILD vs Pneumonia with treatment failure - CT showing pneumonia vs pneumonitis - question if environmental exposure is playing a role in recurrent lung conditions - will continue doxycycline and cefepime, and steroids ( decreased today) - spoke to Dr. Willingham - who will see the patient in consultation tomorrow (2) Bronchopneumonia Current Visit: No Status: Acute Code(s): J18.0 - BRONCHOPNEUMONIA, UNSPECIFIED ORGANISM SNOMED Code(s): 237421533 Comment: - Questionable diagnosis given treatment failure on multiple antibiotics - Flu negative, COVID previously negative, Repeat negative - On Cefepime and doxycycline for coverage of Pseudomonas(Previously on Levaquin ), MRSA and atypicals - High dose steroids for concern for ILD- will decrease steroids today as patient has improved significantly. - CT chest - lung findings concerning for etiology for atypical pneumonia, pulmonary edema, hypersensitivy pneumonitis, bronchiolitis obliterans - spoke to Maulik Barrios who will see the patient in consultation (3) ETOH abuse Current Visit: No Status: Acute Code(s): F10.10 - ALCOHOL ABUSE, UNCOMPLICATED SNOMED Code(s): 34042382 Comment: - No longer drinking due to breathing issues - States alcohol makes breathing worse (4) Hypothyroid Current Visit: No Status: Acute Code(s): E03.9 - HYPOTHYROIDISM, UNSPECIFIED SNOMED Code(s): 06682331 Comment: - TSH on low end of normal at 0.38, continue 125mcg daily - Follow up outpatient. (5) DVT prophylaxis Current Visit: No Status: Acute Code(s): Z29.9 - ENCOUNTER FOR PROPHYLACTIC MEASURES, UNSPECIFIED SNOMED Code(s): 026819824 Comment: -Continue lovenox. (6) Full code status Current Visit: No Status: Acute Code(s): Z78.9 - OTHER SPECIFIED HEALTH STATUS SNOMED Code(s): 674701111 Status and Disposition: Inpatient for respiratory failure, will discharge home when medically stable.
[2019-10-14] MEDS: Enoxaparin(*) 40 MG/0.4 ML SYR SUBCUT SCH (15:34)
[2019-10-14] MEDS: methylPREDNISolone SOD 40 MG* 1 ML VIAL IV SCH (17:35)
[2019-10-14] MEDS: Melatonin 3 MG TAB PO PRN (20:10)
[2019-10-15] MEDS: Cefepime(*) 2 GM in NS 0.9% 50 ML* 50 ML IVPB SCH ×2 (00:58→12:21)
[2019-10-15] MEDS: DOXYcycline IV* 100 MG in NS 0.9% 250 ML* 250 ML IVPB SCH ×2 (02:54→15:35)
[2019-10-15] MEDS: Levothyroxine TAB* 125 MCG TAB PO SCH (04:31)
[2019-10-15] MEDS: methylPREDNISolone SOD 40 MG* 1 ML VIAL IV SCH ×2 (04:31→16:54)
[2019-10-15 07:02] LABS: Hematocrit 36 % (42-52); Hemoglobin 12.5 g/dL (14.0-18.0); Mean Corpuscular HGB Conc 35 g/dL (31-36); Mean Corpuscular Hemoglobin 32 pg (27-31); Mean Corpuscular Volume 92 fL (80-94); Mean Platelet Volume 7.9 fL (7.4-10.4); Platelet Count 478 10^3/uL (150-450); Red Blood Count 3.95 10^6 /uL (4.18-5.48); Red Cell Distribution Width 14 % (10-15)
[2019-10-15 07:12] LABS: BUN/Creatinine Ratio 30.7 (8-20); Calcium 8.7 mg/dL (8.6-10.3); EGFR African American 127.3 (>60); EGFR Non-African American 105.2 (>60); Potassium 4.5 mmol/L (3.5-5.0)
[2019-10-15 07:35] LABS: ABS Lymphocytes 0.9 10^3/ul (1.0-4.8); ABS Monocytes 1.2 10^3/ul (0-0.8); ABS Neutrophils 9.8 10^3/ul (1.5-7.7); Lymphocyte % 7.7 %
[2019-10-15] MEDS: Thiamine TAB* 100 MG TAB PO SCH (08:33)
[2019-10-15] MEDS: Cetirizine* 10 MG TAB PO SCH (08:33)
[2019-10-15] MEDS: Pantoprazole TAB * 40 MG TAB PO SCH (08:33)
[2019-10-15] MEDS: guaiFENesin ER TAB 600 MG PO SCH ×2 (08:33→20:15)
[2019-10-15] MEDS: Enoxaparin(*) 40 MG/0.4 ML SYR SUBCUT SCH (15:38)
--- NOTE | 2019-10-15 17:16 | PN ---
Subjective Date of Service: 10/15/19 Interval History: Patient states that his cough is greatly improved. He no longer feels dyspneic at rest, and did not feel dyspneic while walking around the unit today. Denies chest pain, fever/chills, abd pain, n/v/d. Family History: Unchanged from Admission Social History: Unchanged from Admission Past Medical History: Unchanged from Admission Objective Active Medications: Acetaminophen (Tylenol Tab*) 650 mg PO Q6H PRN PRN Reason: MILD PAIN or TEMP > 100.4 Last Admin: 10/14/19 00:27 Dose: 650 mg Albuterol (Ventolin Hfa Inhaler*) 2 puff INH Q4H PRN PRN Reason: SOB/WHEEZING Last Admin: 10/11/19 19:20 Dose: 2 puff Benzonatate (Tessalon Cap*) 100 mg PO BID PRN PRN Reason: COUGH Last Admin: 10/11/19 20:50 Dose: 100 mg Cetirizine HCl (Zyrtec*) 10 mg PO DAILY [facility] Last Admin: 10/15/19 08:33 Dose: 10 mg Enoxaparin Sodium (Lovenox(*)) 40 mg SUBCUT Q24H [facility] Last Admin: 10/15/19 15:38 Dose: 40 mg Guaifenesin (Mucinex*) 1,200 mg PO BID [facility] Last Admin: 10/15/19 08:33 Dose: 1,200 mg Cefepime HCl 2 gm/ Sodium (Chloride) 50 mls @ 100 mls/hr IVPB Q12H [facility] Last Admin: 10/15/19 12:21 Dose: 100 mls/hr Doxycycline Hyclate 100 mg/ (Sodium Chloride) 250 mls @ 250 mls/hr IVPB Q12H [facility] Last Admin: 10/15/19 15:35 Dose: 250 mls/hr Levothyroxine Sodium (Synthroid Tab*) 125 mcg PO DAILY@0600 [facility] Last Admin: 10/15/19 04:31 Dose: 125 mcg Melatonin (Melatonin) 3 mg PO BEDTIME PRN PRN Reason: SLEEP Last Admin: 10/14/19 20:10 Dose: 3 mg Methylprednisolone Sodium Succinate (Solu-Medrol 40 Mg) 40 mg IV Q12H [facility] Last Admin: 10/15/19 16:54 Dose: 40 mg Ondansetron HCl (Zofran Inj*) 4 mg IV Q6H PRN PRN Reason: NAUSEA Pantoprazole Sodium (Protonix Tab*) 40 mg PO DAILY [facility] Last Admin: 10/15/19 08:33 Dose: 40 mg Thiamine HCl (Vitamin B-1 Tab*) 100 mg PO DAILY [facility] Last Admin: 10/15/19 08:33 Dose: 100 mg Vital Signs - 8 hr 10/15/19 11:15 Temperature 98.1 F Pulse Rate 75 Respiratory 20 Rate Blood Pressure 112/60 (mmHg) O2 Sat by Pulse 93 Oximetry Oxygen Devices in Use Now: Nasal Cannula Appearance: Thin, white male, sitting upright in bed, appearing comfortable and in NAD Eyes: No Scleral Icterus, - - PERRL Ears/Nose/Mouth/Throat: Mucous Membranes Moist Neck: NL Appearance and Movements; NL JVP, Trachea Midline Respiratory: Symmetrical Chest Expansion and Respiratory Effort, Clear to Auscultation Cardiovascular: NL Sounds; No Murmurs; No JVD, RRR Abdominal: - - abd soft, nontender, nondistended Extremities: No Edema, No Clubbing, Cyanosis Skin: No Rash or Ulcers Neurological: Alert and Oriented x 3 Result Diagrams: 10/15/19 06:49 10/15/19 06:49 Additional Lab and Data: Lab Results 10/11/19 10/11/19 10/11/19 Range/Units 11:10 11:10 11:10 WBC 19.4 H (3.5-10.8) 10^3/uL RBC 4.29 (4.18-5.48) 10^6 /uL Hgb 13.2 L (14.0-18.0) g/dL Hct 40 L (42-52) % MCV 93 (80-94) fL MCH 31 (27-31) pg MCHC 33 (31-36) g/dL RDW 14 (10-15) % Plt Count 520 H (150-450) 10^3/uL MPV 7.8 (7.4-10.4) fL Neut % (Auto) 86.0 % Lymph % (Auto) 5.9 % [place] % (Auto) 6.0 % Eos % (Auto) 1.7 % Baso % (Auto) 0.4 % Absolute Neuts (auto) 16.7 H (1.5-7.7) 10^3/ul Absolute Lymphs (auto) 1.1 (1.0-4.8) 10^3/ul Absolute Monos (auto) 1.2 H (0-0.8) 10^3/ul Absolute Eos (auto) 0.3 (0-0.6) 10^3/ul Absolute Basos (auto) 0.1 (0-0.2) 10^3/ul Absolute Nucleated RBC 0.0 10^3/ul Nucleated RBC % 0.0 Sodium 131 L (135-145) mmol/L Potassium 4.0 (3.5-5.0) mmol/L Chloride 99 L (101-111) mmol/L Carbon Dioxide 23 (22-32) mmol/L Anion Gap 9 (2-11) mmol/L BUN 16 (6-24) mg/dL Creatinine 1.05 (0.67-1.17) mg/dL Est GFR ( Amer) 86.3 (>60) Est GFR (Non-Af Amer) 71.3 (>60) BUN/Creatinine Ratio 15.2 (8-20) Glucose 95 (70-100) mg/dL Lactic Acid 1.1 (0.5-2.0) mmol/L Calcium 9.5 (8.6-10.3) mg/dL Total Bilirubin 0.80 (0.2-1.0) mg/dL AST 12 L (13-39) U/L ALT 9 (7-52) U/L Alkaline Phosphatase 76 (34-104) U/L Troponin I 0.11 H* (<0.03) ng/mL C-Reactive Protein 155.06 H (<8.01) mg/L Total Protein 7.8 (6.4-8.9) g/dL Albumin 3.8 (3.2-5.2) g/dL Globulin 4.0 (2-4) g/dL Albumin/Globulin Ratio 1.0 (1-3) Microbiology and Other Data: Microbiology 10/11/19 11:30 Gram Stain - Final Sputum Expectorated 10/11/19 13:02 Legionella Urinary Antigen - Final Urine Negative Legionella Antigen Streptococcus pneumoniae Ag Screen - Final Negative S. pneumo Antigen Assess/Plan/Problems-Billing Assessment: Patient is a 64yo male with a PMH only for Hypothyroidism S/P thyroidectomy, here for his third admission in 2 months for shortness of breath currently being treated with high dose steroids and antibiotics for the possibility of ILD or treatment failure for pneumonia. - Patient Problems (1) Acute respiratory failure with hypoxia Current Visit: No Status: Acute Code(s): J96.01 - ACUTE RESPIRATORY FAILURE WITH HYPOXIA SNOMED Code(s): 63092863 Comment: - Originally was on 10L via face mask - On 2L oxygen today and unable to be weaned further thus far - Unclear cause, concern for ILD vs Pneumonia with treatment failure - CT showing pneumonia vs pneumonitis - question if environmental exposure is playing a role in recurrent lung conditions - will continue doxycycline, cefepime, and steroids (2) Bronchopneumonia Current Visit: No Status: Acute Code(s): J18.0 - BRONCHOPNEUMONIA, UNSPECIFIED ORGANISM SNOMED Code(s): 547641518 Comment: - Questionable diagnosis given treatment failure on multiple antibiotics - Flu negative - COVID previously negative, Repeat negative - On Cefepime and doxycycline for coverage of Pseudomonas (Previously on Levaquin), MRSA, and atypicals - High dose steroids for concern for ILD; holding off on changing today while awaiting Dr. Willingham's input - CT chest findings concerning for etiology for atypical pneumonia, pulmonary edema, hypersensitivy pneumonitis, bronchiolitis obliterans - appreciate Dr. Willingham's consult - fungal antibodies negative - patient has been afebrile during hospitalization. Presented with leukocytosis (3) Hypothyroid Current Visit: No Status: Acute Code(s): E03.9 - HYPOTHYROIDISM, UNSPECIFIED SNOMED Code(s): 97472042 Comment: - TSH on low end of normal at 0.38, continue 125mcg daily - Follow up outpatient. (4) DVT prophylaxis Current Visit: No Status: Acute Code(s): Z29.9 - ENCOUNTER FOR PROPHYLACTIC MEASURES, UNSPECIFIED SNOMED Code(s): 721583689 Comment: -Continue lovenox. (5) Full code status Current Visit: No Status: Acute Code(s): Z78.9 - OTHER SPECIFIED HEALTH STATUS SNOMED Code(s): 662499324 Status and Disposition: Inpatient for respiratory failure, will discharge home when medically stable.
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
[2019-10-15] MEDS: Melatonin 3 MG TAB PO PRN (20:15)
[2019-10-16] MEDS: Cefepime(*) 2 GM in NS 0.9% 50 ML* 50 ML IVPB SCH ×2 (00:24→11:50)
[2019-10-16] MEDS: DOXYcycline IV* 100 MG in NS 0.9% 250 ML* 250 ML IVPB SCH ×2 (02:19→15:08)
[2019-10-16] MEDS: methylPREDNISolone SOD 40 MG* 1 ML VIAL IV SCH ×2 (05:46→17:20)
[2019-10-16] MEDS: Levothyroxine TAB* 125 MCG TAB PO SCH (05:46)
[2019-10-16] MEDS: Cetirizine* 10 MG TAB PO SCH (07:47)
[2019-10-16] MEDS: Pantoprazole TAB * 40 MG TAB PO SCH (07:47)
[2019-10-16] MEDS: Thiamine TAB* 100 MG TAB PO SCH (07:47)
[2019-10-16] MEDS: guaiFENesin ER TAB 600 MG PO SCH ×2 (07:47→20:23)
--- NOTE | 2019-10-16 10:15 | PN ---
Subjective Date of Service: 10/16/19 Interval History: Patient feeling well today. Has a very occasional dry cough. Patient ambulated around the floor with nursing staff and did not experience dyspnea. Denie dyspnea at rest, chest pain, fever/chills, abd pain. Family History: Unchanged from Admission Social History: Unchanged from Admission Past Medical History: Unchanged from Admission Objective Active Medications: Acetaminophen (Tylenol Tab*) 650 mg PO Q6H PRN PRN Reason: MILD PAIN or TEMP > 100.4 Last Admin: 10/14/19 00:27 Dose: 650 mg Albuterol (Ventolin Hfa Inhaler*) 2 puff INH Q4H PRN PRN Reason: SOB/WHEEZING Last Admin: 10/11/19 19:20 Dose: 2 puff Benzonatate (Tessalon Cap*) 100 mg PO BID PRN PRN Reason: COUGH Last Admin: 10/11/19 20:50 Dose: 100 mg Cetirizine HCl (Zyrtec*) 10 mg PO DAILY [facility] Last Admin: 10/16/19 07:47 Dose: 10 mg Enoxaparin Sodium (Lovenox(*)) 40 mg SUBCUT Q24H [facility] Last Admin: 10/15/19 15:38 Dose: 40 mg Guaifenesin (Mucinex*) 1,200 mg PO BID [facility] Last Admin: 10/16/19 07:47 Dose: 1,200 mg Cefepime HCl 2 gm/ Sodium (Chloride) 50 mls @ 100 mls/hr IVPB Q12H [facility] Last Admin: 10/16/19 00:24 Dose: 100 mls/hr Doxycycline Hyclate 100 mg/ (Sodium Chloride) 250 mls @ 250 mls/hr IVPB Q12H [facility] Last Admin: 10/16/19 02:19 Dose: 250 mls/hr Levothyroxine Sodium (Synthroid Tab*) 125 mcg PO DAILY@0600 [facility] Last Admin: 10/16/19 05:46 Dose: 125 mcg Melatonin (Melatonin) 3 mg PO BEDTIME PRN PRN Reason: SLEEP Last Admin: 10/15/19 20:15 Dose: 3 mg Methylprednisolone Sodium Succinate (Solu-Medrol 40 Mg) 40 mg IV Q12H [facility] Last Admin: 10/16/19 05:46 Dose: 40 mg Ondansetron HCl (Zofran Inj*) 4 mg IV Q6H PRN PRN Reason: NAUSEA Pantoprazole Sodium (Protonix Tab*) 40 mg PO DAILY [facility] Last Admin: 10/16/19 07:47 Dose: 40 mg Thiamine HCl (Vitamin B-1 Tab*) 100 mg PO DAILY [facility] Last Admin: 10/16/19 07:47 Dose: 100 mg Vital Signs - 8 hr 10/16/19 10/16/19 10/16/19 03:51 07:24 07:45 Temperature 97.4 F 97.9 F Pulse Rate 60 66 Respiratory 18 20 Rate Blood Pressure 122/68 127/75 (mmHg) O2 Sat by Pulse 93 94 93 Oximetry 10/16/19 10/16/19 10:04 10:05 Temperature Pulse Rate Respiratory Rate Blood Pressure (mmHg) O2 Sat by Pulse 98 93 Oximetry Oxygen Devices in Use Now: Nasal Cannula Appearance: Thin, white male who appears older than stated age, sitting in chair , appearing comfortable and in NAD Eyes: No Scleral Icterus, - - PERRL Ears/Nose/Mouth/Throat: Mucous Membranes Moist Neck: NL Appearance and Movements; NL JVP, Trachea Midline Respiratory: Symmetrical Chest Expansion and Respiratory Effort, Clear to Auscultation Cardiovascular: NL Sounds; No Murmurs; No JVD, RRR Abdominal: - - abdomen soft/nontender/nondistended Extremities: No Edema, No Clubbing, Cyanosis Skin: No Rash or Ulcers Neurological: Alert and Oriented x 3 Result Diagrams: 10/15/19 06:49 10/15/19 06:49 Additional Lab and Data: Lab Results 10/11/19 10/11/19 10/11/19 Range/Units 11:10 11:10 11:10 WBC 19.4 H (3.5-10.8) 10^3/uL RBC 4.29 (4.18-5.48) 10^6 /uL Hgb 13.2 L (14.0-18.0) g/dL Hct 40 L (42-52) % MCV 93 (80-94) fL MCH 31 (27-31) pg MCHC 33 (31-36) g/dL RDW 14 (10-15) % Plt Count 520 H (150-450) 10^3/uL MPV 7.8 (7.4-10.4) fL Neut % (Auto) 86.0 % Lymph % (Auto) 5.9 % [place] % (Auto) 6.0 % Eos % (Auto) 1.7 % Baso % (Auto) 0.4 % Absolute Neuts (auto) 16.7 H (1.5-7.7) 10^3/ul Absolute Lymphs (auto) 1.1 (1.0-4.8) 10^3/ul Absolute Monos (auto) 1.2 H (0-0.8) 10^3/ul Absolute Eos (auto) 0.3 (0-0.6) 10^3/ul Absolute Basos (auto) 0.1 (0-0.2) 10^3/ul Absolute Nucleated RBC 0.0 10^3/ul Nucleated RBC % 0.0 Sodium 131 L (135-145) mmol/L Potassium 4.0 (3.5-5.0) mmol/L Chloride 99 L (101-111) mmol/L Carbon Dioxide 23 (22-32) mmol/L Anion Gap 9 (2-11) mmol/L BUN 16 (6-24) mg/dL Creatinine 1.05 (0.67-1.17) mg/dL Est GFR ( Amer) 86.3 (>60) Est GFR (Non-Af Amer) 71.3 (>60) BUN/Creatinine Ratio 15.2 (8-20) Glucose 95 (70-100) mg/dL Lactic Acid 1.1 (0.5-2.0) mmol/L Calcium 9.5 (8.6-10.3) mg/dL Total Bilirubin 0.80 (0.2-1.0) mg/dL AST 12 L (13-39) U/L ALT 9 (7-52) U/L Alkaline Phosphatase 76 (34-104) U/L Troponin I 0.11 H* (<0.03) ng/mL C-Reactive Protein 155.06 H (<8.01) mg/L Total Protein 7.8 (6.4-8.9) g/dL Albumin 3.8 (3.2-5.2) g/dL Globulin 4.0 (2-4) g/dL Albumin/Globulin Ratio 1.0 (1-3) Microbiology and Other Data: Microbiology 10/11/19 11:30 Gram Stain - Final Sputum Expectorated 10/11/19 13:02 Legionella Urinary Antigen - Final Urine Negative Legionella Antigen Streptococcus pneumoniae Ag Screen - Final Negative S. pneumo Antigen Diagnostic Imaging: CT CHEST 10/12/19 FINDINGS: Thyroid: No thyroid nodules. Lungs: Interval worsening of patchy ground-glass opacification with a upper lobe and perihilar predominance. Mild dependent bibasilar atelectasis. No interlobular septal thickening, nodules, honeycombing, consolidation, or masses. No bronchiectasis, peribronchial thickening, or luminal defects. Pleural space: Biapical pleural thickening. No pleural effusion or pneumothorax. Heart: Normal. No cardiomegaly. No pericardial effusion. Aorta: The aorta demonstrates mild atherosclerotic calcification. Lymph nodes: Normal. No enlarged lymph nodes. Bones/joints: The thoracic spine demonstrates mild degenerative changes at multiple levels. No acute fractures. No suspicious bone lesions. Soft tissues: Normal. IMPRESSION: Lung findings with etiologies including atypical pneumonia, pulmonary edema, hypersensitivity pneumonitis, and bronchiolitis obliterans. Assess/Plan/Problems-Billing Assessment: Patient is a 64yo male with a PMH only for Hypothyroidism S/P thyroidectomy, here for his third admission in 2 months for shortness of breath currently being treated with high dose steroids and antibiotics for the possibility of ILD or treatment failure for pneumonia. - Patient Problems (1) Acute respiratory failure with hypoxia Current Visit: No Status: Acute Code(s): J96.01 - ACUTE RESPIRATORY FAILURE WITH HYPOXIA SNOMED Code(s): 02117277 Comment: - Originally was on 10L via face mask - CT chest findings as above, ground glass opacities of concern - Dr. Willingham saw patient in consultation and believes consistent with hypersensitivity pneumonitis - 93% O2 sat on room air, drops to 91% with ambulation on room air - I would prefer improved oxygen sat prior to d/c, will continue IV steroids and re-evaluate tomorrow - will continue course of abx to cover for clinical presentation consistent with possible pneumonia, but seems less likely; today is day 6 and tomorrow will be completion of the course of doxy and cefepime (2) Hypothyroid Current Visit: No Status: Acute Code(s): E03.9 - HYPOTHYROIDISM, UNSPECIFIED SNOMED Code(s): 03660545 Comment: - TSH on low end of normal at 0.38, continue 125mcg daily - Follow up outpatient. (3) DVT prophylaxis Current Visit: No Status: Acute Code(s): Z29.9 - ENCOUNTER FOR PROPHYLACTIC MEASURES, UNSPECIFIED SNOMED Code(s): 027378402 Comment: -Continue lovenox. (4) Full code status Current Visit: No Status: Acute Code(s): Z78.9 - OTHER SPECIFIED HEALTH STATUS SNOMED Code(s): 752103501 Status and Disposition: Inpatient for respiratory failure, will discharge home when medically stable.
--- NOTE | 2019-10-16 14:23 | PN ---
Progress Note - Progress Note Date of Service: 10/16/19 - Pulm f/u note Note: Pt seen and examined at bedside. Pt reports feeling better. DILL is improved, cough is intermittent. Snoring at night, GERD+ Active Medications Generic Name Dose Route Start Last Admin Trade Name Freq PRN Reason Stop Dose Admin Acetaminophen 650 mg 10/11/19 14:32 10/14/19 00:27 Tylenol Tab* PO 650 mg Q6H PRN Administration MILD PAIN or TEMP > 100.4 Albuterol 2 puff 10/11/19 14:36 10/11/19 19:20 Ventolin Hfa Inhaler* INH 2 puff Q4H PRN Administration SOB/WHEEZING Benzonatate 100 mg 10/11/19 14:32 10/11/19 20:50 Tessalon Cap* PO 100 mg BID PRN Administration COUGH Cetirizine HCl 10 mg 10/12/19 09:00 10/16/19 07:47 Zyrtec* PO 10 mg DAILY [facility] Administration Enoxaparin Sodium 40 mg 10/11/19 15:00 10/15/19 15:38 Lovenox(*) SUBCUT 40 mg Q24H [facility] Administration Guaifenesin 1,200 mg 10/11/19 21:00 10/16/19 07:47 Mucinex* PO 1,200 mg BID [facility] Administration Cefepime HCl 2 gm/ Sodium 50 mls @ 100 mls/hr 10/12/19 00:00 10/16/19 11:50 Chloride IVPB 100 mls/hr Q12H [facility] Administration Doxycycline Hyclate 100 mg/ 250 mls @ 250 mls/hr 10/11/19 15:00 10/16/19 02: 19 Sodium Chloride IVPB 250 mls/hr Q12H [facility] Administration Levothyroxine Sodium 125 mcg 10/12/19 06:00 10/16/19 05:46 Synthroid Tab* PO 125 mcg DAILY@0600 [facility] Administration Melatonin 3 mg 10/14/19 12:48 10/15/19 20:15 Melatonin PO 3 mg BEDTIME PRN Administration SLEEP Methylprednisolone Sodium Succinate 40 mg 10/14/19 17:00 10/16/19 05:46 Solu-Medrol 40 Mg IV 40 mg Q12H [facility] Administration Ondansetron HCl 4 mg 10/11/19 14:32 Zofran Inj* IV Q6H PRN NAUSEA Pantoprazole Sodium 40 mg 10/12/19 09:00 10/16/19 07:47 Protonix Tab* PO 40 mg DAILY [facility] Administration Thiamine HCl 100 mg 10/12/19 09:00 10/16/19 07:47 Vitamin B-1 Tab* PO 100 mg DAILY [facility] Administration Vital Signs Temp Pulse Resp BP Pulse Ox 98 F 93 18 102/76 94 10/16/19 10:50 10/16/19 10:50 10/16/19 10:50 10/16/19 10:50 10/16/19 10:50 O/E: Pt in NAD HEENT: PERRLA Lungs: Good a/e b/l, no wheeze CVS: S1, S2+ Abd: Soft, BS+ Ext: Normal ROM Skin: NO rash Neuro: NO focal deficits Labs: NO new labs I/R; 64 y o m with recurrent admissions recently for cough, SOB, being treated for PNA Symptoms consistent with acute HSN pneumonitis Pt with improvement in sx with prednisone To assess O2 requirements prior to d/c Will recommend slow prednisone taper at 10mg weekly, starting at 60mg Will need PCP px until he is down to prednisone 20mg Pathophysiology of HSN pneumonitis was discussed Will need sleep study as out pt
[2019-10-16] MEDS: Enoxaparin(*) 40 MG/0.4 ML SYR SUBCUT SCH (15:09)
[2019-10-17] MEDS: Cefepime(*) 2 GM in NS 0.9% 50 ML* 50 ML IVPB SCH ×2 (00:17→11:04)
[2019-10-17] MEDS: Melatonin 3 MG TAB PO PRN (00:25)
[2019-10-17] MEDS: DOXYcycline IV* 100 MG in NS 0.9% 250 ML* 250 ML IVPB SCH (03:09)
[2019-10-17] MEDS: methylPREDNISolone SOD 40 MG* 1 ML VIAL IV SCH (05:16)
[2019-10-17] MEDS: Levothyroxine TAB* 125 MCG TAB PO SCH (05:17)
[2019-10-17] MEDS: Cetirizine* 10 MG TAB PO SCH (08:42)
[2019-10-17] MEDS: Thiamine TAB* 100 MG TAB PO SCH (08:42)
[2019-10-17] MEDS: Pantoprazole TAB * 40 MG TAB PO SCH (08:42)
[2019-10-17] MEDS: guaiFENesin ER TAB 600 MG PO SCH (08:43)
[2019-10-17 11:26] VITALS: BP 121/69
--- NOTE | 2019-10-17 20:52 | DS ---
CC: MARINO Hinton* DISCHARGE SUMMARY: DATE OF ADMISSION: 10/11/19 DATE OF DISCHARGE: 10/17/19 PROVIDER: MARINO Madison ATTENDING PHYSICIAN WHILE IN THE HOSPITAL: Dr. Michael Mora* (dictated by MARINO Madison). PRIMARY CARE PROVIDER: MARINO Hinton PRIMARY DIAGNOSIS: Likely hypersensitivity pneumonitis. SECONDARY DIAGNOSES: 1. Hypothyroidism. 2. History of thyroid cancer. PERTINENT STUDIES WHILE IN THE HOSPITAL: Chest x-ray on 10/11/19, radiologist' s impression: Right greater than left mid to lower lung zone airspace opacification. Chest CT on 10/12/19, radiologist's impression: Lung findings, interval worsening of patchy ground-glass opacification with an upper lobe and perihilar predominance. Mild dependent bibasilar atelectasis. No interlobular septal thickening, nodules, honeycombing, consolidation, or masses. No bronchiectasis , peribronchial thickening, or luminal defects. HISTORY OF PRESENT ILLNESS/HOSPITAL COURSE: Dmitri Delgado is a 64-year-old white male with past medical history significant for hypothyroidism and thyroid cancer, who presented to the emergency department due to shortness of breath after failing multiple outpatient treatments for presumed pneumonia. For further details regarding his admission, please see history and physical written by MARINO Durham, on 10/11/19. In brief, the patient has been receiving various outpatient therapies for presumed pneumonia since July of this year. He has been having on and off fevers and chills and productive cough. The patient was admitted to the hospital and initially started on cefepime and doxycycline for more broad-spectrum coverage while he was in the hospital due to presumed pneumonia, especially considering his chest x-ray findings and he was hypoxic as well requiring 10 L of oxygen initially. He was not improving and Solu-Medrol was started and he did start to have lower oxygen requirements. Due to his presentation and ongoing nature of shortness of breath since July, chest CT was ordered, which demonstrated ground-glass opacities. For this reason, Dr. Willingham of pulmonology service was consulted. She saw this patient and believed that his presentation is likely guest services representative of hypersensitivity pneumonitis and recommended continuing the prednisone and trying a slow taper of 10 mg every week and to follow up with her in the clinic. Ultimately, by day of discharge, the patient has completed a full course of cefepime and doxycycline for concern of any possible pneumonia and he was changed to 60 mg of prednisone after being on Solu-Medrol 40 mg b.i.d. for several days. Ultimately, by day of discharge, he no longer was requiring oxygen. He was able to ambulate on room air and maintain oxygen saturation at 97%. The patient was afebrile during his hospitalization and he did present with leukocytosis to 19,400, which is again the reason for antibiotics being used due to clinical concern for pneumonia, though this does seem less likely to be explanation for his ongoing symptoms. He did have a thrombocytosis as well during his hospitalization, which may be guest services representative of possible underlying infection in addition to the hypersensitivity pneumonitis , but it is unclear and this should be followed outpatient. The patient had CCP, AUTUMN, and scleroderma antibody, which are negative and RF of 16. He was tested for COVID-19, which was found to be negative as well. PHYSICAL EXAM ON DAY OF DISCHARGE: General: A white male, sitting in chair, appearing comfortable, in no acute distress. Eyes: PERRL. Sclerae anicteric. Lungs: Clear to auscultation throughout. Cardio: Regular rate and rhythm without murmurs, rubs, or gallops. Abdomen: Nondistended. Extremities: No clubbing or cyanosis. Neuro: The patient is alert and oriented x3. DISCHARGE PLAN: The patient is to follow up with Dr. Willingham in 2 weeks. He is going to have a slow taper of oral prednisone. He is going to need to follow up with his primary care provider within 1 to 2 weeks as well in addition to his followup with Dr. Willingham to discuss this recent hospitalization. The patient was advised to please return to the closest emergency department for shortness of breath, chest pain, fevers or chills, any other difficulty breathing, or other concerning symptoms. DISCHARGE MEDICATIONS: 1. Prednisone 60 mg x7 days, 50 mg x7 days, 40 mg x7 days, 30 mg x7 days, 20 mg x7 days, 10 mg x7 days, and then discontinue. 2. Mucinex 1200 mg p.o. b.i.d. 3. Doxycycline 100 mg p.o. b.i.d. (x1 day). 4. Tessalon 100 mg p.o. b.i.d. p.r.n. cough. Continued home medications: 1. Claritin 10 mg p.o. daily. 2. Albuterol inhaler 2 puffs inhaled q.4 hours p.r.n. shortness of breath/ wheezing. 3. Thiamine 100 mg p.o. daily. 4. Levothyroxine 125 mcg p.o. daily. CONDITION ON DISCHARGE: Stable. DISPOSITION: Home. TIME SPENT: Approximately 35 minutes was spent on this discharge, approximately half this time was spent at bedside evaluating the patient and discussing the plan of care. MARINO MADISON [id number]/[facility] #: [id number] MTDD
== END 2019-10-17 14:20 | disposition home or self-care (01) | DRG 142 ==
LOC: ED 10:47 → MED 14:32 → MEDTELE 10-12 23:49
PROVIDERS: ADMIT Internal Medicine; ATTEND Internal Medicine
DX: J67.9 Hypersensitivity pneumonitis due to unspecified organic dust (principal); J96.01 Acute respiratory failure with hypoxia; J98.11 Atelectasis; E89.0 Postprocedural hypothyroidism; D47.3 Essential (hemorrhagic) thrombocythemia; R06.02 Shortness of breath; R05 Cough; K21.9 Gastro-esophageal reflux disease without esophagitis; Z77.22 Contact with and (suspected) exposure to environmental tobacco smoke (acute) (chronic); Z85.850 Personal history of malignant neoplasm of thyroid; Z79.899 Other long term (current) drug therapy; Z83.3 Family history of diabetes mellitus; Z80.0 Family history of malignant neoplasm of digestive organs
CPT/HCPCS: 36415; 71045; 71250; 80048; 80053; 81003; 82164; 83605; 83735; 84145; 84443; 84484; 85025; 85379; 86038; 86140; 86200; 86235; 86431; 86606; 86609; 87040; 87070; 87077; 87205; 87635; 87899; 94640; 96365; 96366; 96367; 96372; 99284; A9270-GY; G2023; J0692; J1100; J1650; J2920; J2930; J7620

== ENCOUNTER 2019-10-18 08:45 | Emergency (ER) | payer OTHER ==
[2019-10-18] MEDS ORDERED: NS 0.9% 1000 ML** 1,000 ML IV ONE (08:46)
--- NOTE | 2019-10-18 08:51 | ED ---
Neurological HPI - HPI Summary HPI Summary: This patient is a 64 y/o male presenting to [facility] via EMS for left arm weakness and slurred speech since 0700 today when he woke up, last well known is at 1999 last night 10/17/19. Patient was discharged from the hospital yesterday after being admitted for pneumonitis. He notes he went to bed at 1999 last night but he was coughing so he woke up and took coughing pills and his inhaler. Patient then went back to bed and laid there until this morning. Patient states at 0700 today he noticed left arm weakness and slurred speech. Additionally notes as he was talking he felt numbness on the left side of his face. He currently is reporting "my left thumb is not working." Denies fever, chest pain, SOB. Blood sugar is 66, per EMS. PMHx: hypothyroidism, thyroid CA. Home Medications Medication Instructions Recorded Confirmed Type Levothyroxine TAB* [Synthroid 125 125 mcg PO 0600 #120 tab 09/04/19 10/18/19 Rx MCG TAB*] Albuterol HFA INHALER* [Ventolin 2 puff INH Q4H PRN 30 Days #1 mdi 09/10/19 Rx HFA Inhaler*] Loratadine [Claritin] 10 mg PO DAILY 09/14/19 10/18/19 History Thiamine Mononitrate (Vit B1) 100 mg PO DAILY 10/11/19 10/18/19 History [Vitamin B-1] Benzonatate CAP* [Tessalon 100 MG 100 mg PO BID PRN #28 cap 10/16/19 10/18/19 Rx CAP*] guaiFENesin ER TAB [Mucinex*] 1,200 mg PO BID #30 tab.er 10/16/19 10/18/19 Rx predniSONE 10 mg TAB [Deltasone 10 10 mg PO DAILY #147 tab 10/16/19 10/18/19 Rx MG TAB*] - History of Current Complaint Stated Complaint: LEFT SIDED WEAKNESS PER EMS Time Seen by Provider: 10/18/19 08:46 Hx Obtained From: Patient Onset/Duration: Started hours ago, Still Present Timing: Sudden Onset Current Severity: Mild Neurological Deficit Location: Facial, LUE Pain Intensity: 0 Pain Scale Used: 0-10 Numeric Character: Weak - left arm, Numbness/Tingling - left face numbness, Impaired Speech - Slurred Aggravating: Nothing Alleviating: Nothing Associated Signs and Symptoms: Positive: Weakness, Impaired Speech - Slurred, Numbness. Negative: Loss of Consciousness, Pain, Fever, Chest Pain, Shortness of Breath - Additional Pertinent History Primary Care Physician: JAMES - Allergy/Home Medications Allergies/Adverse Reactions: Allergies Allergy/AdvReac Type Severity Reaction Status Date / Time No Known Allergies Allergy Verified 10/18/19 09:00 Home Medications: Home Medications Levothyroxine TAB* [Synthroid 125 MCG TAB*] 125 mcg PO 0600 #120 tab 09/04/19 [ Rx Confirmed 10/18/19] Albuterol HFA INHALER* [Ventolin HFA Inhaler*] 2 puff INH Q4H PRN 30 Days #1 mdi 09/10/19 [Rx Confirmed 10/18/19] Loratadine [Claritin] 10 mg PO DAILY 09/14/19 [History Confirmed 10/18/19] Thiamine Mononitrate (Vit B1) [Vitamin B-1] 100 mg PO DAILY 10/11/19 [History Confirmed 10/18/19] Benzonatate CAP* [Tessalon 100 MG CAP*] 100 mg PO BID PRN #28 cap 10/16/19 [Rx Confirmed 10/18/19] guaiFENesin ER TAB [Mucinex*] 1,200 mg PO BID #30 tab.er 10/16/19 [Rx Confirmed 10/18/19] predniSONE 10 mg TAB [Deltasone 10 MG TAB*] 10 mg PO DAILY #147 tab 10/16/19 [ Rx Confirmed 10/18/19] PMH/Surg Hx/FS Hx/Imm Hx Endocrine/Hematology History: Reports: Hx Thyroid Disease Denies: Hx Diabetes Cardiovascular History: Denies: Hx Deep Vein Thrombosis, Hx Hypertension Respiratory History: Reports: Hx Pneumonia Denies: Hx Asthma, Hx Chronic Obstructive Pulmonary Disease (COPD), Hx Pulmonary Edema Sensory History: Denies: Hx Contacts or Glasses, Hx Hearing Aid Opthamlomology History: Denies: Hx Contacts or Glasses - Cancer History Cancer Type, Location and Year: thyroid - Surgical History Surgery Procedure, Year, and Place: tonsillectomy, corrective eye surgery - Family History Known Family History: Positive: Cardiac Disease - Social History Alcohol Use: Rare Alcohol Amount: 5 beers a day Hx Substance Use: No Substance Use Type: Reports: None Hx Tobacco Use: No Smoking Status (MU): Never Smoked Tobacco Review of Systems Negative: Fever Negative: Chest Pain Positive: Cough. Negative: Shortness Of Breath Positive: Weakness - left arm, Numbness - on left side of face, Slurred Speech All Other Systems Reviewed And Are Negative: Yes Physical Exam - Summary Physical Exam Summary: VITAL SIGNS: Reviewed. GENERAL: Patient is a well-developed and nourished male who is lying comfortable in the stretcher. Patient is not in any acute respiratory distress. HEAD AND FACE: No signs of trauma. No ecchymosis, hematomas or skull depressions. No sinus tenderness. EYES: PERRLA, EOMI x 2, No injected conjunctiva, no nystagmus. No photophobia. EARS: Hearing grossly intact. Ear canals and tympanic membranes are within normal limits. MOUTH: Oropharynx within normal limits. NECK: Supple, trachea is midline, no adenopathy, no JVD, no carotid bruit, no c- spine tenderness, neck with full ROM. No meningeal signs, no Kernig's or brudzinskis signs. CHEST: Symmetric, no tenderness at palpation. LUNGS: Clear to auscultation bilaterally. No wheezing or crackles. CVS: Regular rate and rhythm, S1 and S2 present, no murmurs or gallops appreciated. ABDOMEN: Soft, non-tender. No signs of distention. No rebound, no guarding, and no masses palpated. Bowel sounds are normal. EXTREMITIES: FROM in all major joints, no edema, no cyanosis or clubbing. NEURO: Alert and oriented x 3. Patient has slurred speech. Left upper extremity weakness and decreased sensation. Facial fold on the right side is not present. Facial fold on the left side is present. Decreased sensation on the right side of face. SKIN: Dry and warm. GCS: 15 Triage Information Reviewed: Yes Vital Signs On Initial Exam: Initial Vitals Temp Pulse Resp BP Pulse Ox 98.9 F 96 20 122/76 94 10/18/19 08:48 10/18/19 08:48 10/18/19 08:48 10/18/19 08:48 10/18/19 08:48 Vital Signs Reviewed: Yes Procedures - Sedation Patient Received Moderate/Deep Sedation with Procedure: No Diagnostics - Laboratory Result Diagrams: 10/18/19 09:05 10/18/19 09:05 Lab Statement: Any lab studies that have been ordered have been reviewed, and results considered in the medical decision making process. - Radiology Chest XR Radiology Interpretation Completed By: Radiologist Summary of Radiographic Findings: IMPRESSION: Patchy bibasilar atelectasis versus early consolidation. Dr. Fields has reviewed this report. - CT Brain CT CT Interpretation Completed By: Radiologist Summary of CT Findings: IMPRESSION: LOSS OF VALDES-WHITE DIFFERENTIATION ALONG THE LEFT INSULAR STRIPE CONCERNING FOR EARLY NONHEMORRHAGIC LEFT MCA TERRITORY INFARCT. PRELIMINARY FINDINGS WERE DISCUSSED WITH DR. FIELDS AT APPROXIMATELY 9: 06 AM ON OCTOBER 18, 2019. Head/Neck CTA CT Interpretation Completed By: Radiologist Summary of CT Findings: IMPRESSION: 1. ATHEROMATOUS DISEASE, WITH SOFT, POTENTIALLY UNSTABLE PLAQUE OF THE RIGHT INTERNAL CAROTID ARTERY RESULTING IN APPROXIMATELY 50% STENOSIS BY NASCET CRITERIA. THERE IS NO LEFT INTERNAL CAROTID ARTERY STENOSIS BY NASCET CRITERIA. 2. NO ANEURYSM, VASCULAR MALFORMATION, OCCLUSION, OR STENOSIS OF THE VISUALIZED INTRACRANIAL CIRCULATION. 3. STATUS POST LEFT NECK DISSECTION WITH ABSENCE OF THE LEFT INTERNAL JUGULAR VEIN AND CHRONIC APPEARING NONOCCLUSIVE THROMBUS OF THE LEFT SIGMOID SINUS. PRELIMINARY FINDINGS WERE DISCUSSED WITH DR. FIELDS AT APPROXIMATELY 0958 ON OCTOBER 18, 2019. - EKG 0928 Cardiac Rate: NL - at 90 bpm EKG Rhythm: Sinus Rhythm Summary of EKG Findings: EKG at 0928 shows sinus rhythm at a rate of [address] elevations. Normal axis. This EKG was reviewed and interpreted by ED physician. NIH Scale - NIH Scale Level of Consciousness: Alert/Keenly Responsive Ask Patient the Month and His/Her Age: Both Correct Ask Pt to Open/Close Eyes and Extension Agent/Release Non-Paretic Hand: Both Correctly Best Gaze (Only Horizontal Eye Movement): Normal Visual Field Testing: No Visual Loss Facial Paresis-Pt to Smile & Close Eyes or Grimace Symmetry: Minor Paralysis Motor Function - Right Arm: No Drift-Holds 10 Seconds Motor Function - Left Arm: Drifts LT 10 seconds Motor Function - Right Leg: Drifts LT 10 seconds Motor Function - Left Leg: No Drift-Holds 10 Seconds Limb Ataxia-Must be out of Proportion to Weakness Present: Absent Sensory (Use Pinprick to Test Arms/Legs/Trunk/Face): Pinprick Less on Affected Best Language (Describe Picture, Name Items): No Aphasia Dysarthria (Read Several Words): Slurs Some Words Extinction and Inattention: No Abnormality Total Score: 5 Course/Dx - Course Course Of Treatment: Ben Abreu overhead called at 0844 from ambulance bay. Patient arrives to the ED via EMS at [address] Fields immediately at bedside. Patient to CT at 0846. Patient returned from CT at [address] Jamil, neurologist, at bedside. Dr. Overton, radiologist, reports brain CT results at 0904. CTA ordered as recommended by Dr. Jamil at 0904. Dr. Jamil reports patient is not a candidate for TPA at 0910 because her symptoms began yesterday at 1999. Dr. Overton, radiologist, reports CTA results at 0956. Dr. Jamil, neurologist, recommends transfer to [facility] at 10:10 for CVA with potentially unstable plaque on the right internal carotid artery. Assessment/Plan: This patient is a 64 y/o male presenting to [facility] via EMS for left arm weakness and slurred speech since 0700 today when he woke up. Last well known 8 PM yesterday. Patient's last well known is at 1999 last night 10/16 when he went to bed but began to notice symptoms when he woke up today at 0700. Patient was discharged from the hospital yesterday after being admitted for pneumonitis. He notes he went to bed at 1999 last night but he was coughing so he woke up and took coughing pills and his inhaler. Patient then went back to bed and laid there until this morning. Patient states at 0700 today he noticed left arm weakness and slurred speech. Additionally notes as he was talking he felt numbness on the left side of his face. He is currently reporting "my left thumb, left hand is not working." Denies fever, chest pain, SOB. Blood sugar is 66, per EMS. PMHx: hypothyroidism, thyroid CA. Ben abreu was called at 8:44 AM. Patient is still having some slurred speech and left upper extremity weakness. NIH is equal to 5. GCS is 15. In the ED course the patient was placed in a engine monitor, IV access was obtained, IV fluids were started. Past medical records reviewed. Past medical history significant for pneumonitis, hypothyroidism, thyroid cancer. Dr. Jamil, neurologist, at bedside. Symptoms started at 8 PM last night as per patient. Dr. Jamil recommends no tPA. Blood test w/o a significant abnormality except for WBC 31.5 , platelets 546, absolute neutrophils 28.1, BUN 33, glucose 111, calcium 8.4, ALT 82. Head CT IMPRESSION: LOSS OF VALDES-WHITE DIFFERENTIATION ALONG THE LEFT INSULAR STRIPE CONCERNING FOR EARLY NONHEMORRHAGIC LEFT MCA TERRITORY INFARCT. Dr. Jamil request a CTA head and neck. CTA head and neck IMPRESSION: 1. ATHEROMATOUS DISEASE, WITH SOFT, POTENTIALLY UNSTABLE PLAQUE OF THE RIGHT INTERNAL. CAROTID ARTERY RESULTING IN APPROXIMATELY 50% STENOSIS BY NASCET CRITERIA. THERE IS NO. LEFT INTERNAL CAROTID ARTERY STENOSIS BY NASCET CRITERIA. 2. NO ANEURYSM, VASCULAR MALFORMATION, OCCLUSION, OR STENOSIS OF THE VISUALIZED. INTRACRANIAL CIRCULATION. 3. STATUS POST LEFT NECK DISSECTION WITH ABSENCE OF THE LEFT INTERNAL JUGULAR VEIN AND CHRONIC APPEARING NONOCCLUSIVE THROMBUS OF THE LEFT SIGMOID SINUS. CXR IMPRESSION: PATCHY BIBASILAR ATELECTASIS VERSUS EARLY CONSOLIDATION. I discussed the case with Dr. Sousa vascular surgeon from [facility] and she recommends medical management with aspirin, Plavix, and statin. I discussed the case again with Dr. Jamil from neurology and he does not agree with the suggestion and he recommends to continue seeking transfer either to [facility] or [place]. At approximately 1:15 PM I discussed the case with Dr. Jaffe neurocritical and she accepted the patient for transfer to [facility]. She stated that she will return the patient for COVID-19. Patient was given Cefepime. At this time the patient is hemodynamically stable, alert and oriented 3. Patient will be transferred to [facility]. - Diagnoses Provider Diagnoses: CVA (cerebral vascular accident), Carotid artery plaque, Pneumonia During the Visit The Following Alert/Code Occurred: Code Abreu - at 0844 - Physician Notifications Discussed Care Of Patient With: Vamshi Overton Time Discussed With Above Provider: 09:04 Instructed by Provider To: Other - Dr. Overton, radiologist, reports brain CT results. [0956] Dr. Overton reports Head/Neck CTA. [10:10] Dr. Jamil, neurologist , recommends trasferring patient to [facility]. [10:31] Spoke with the transfer center and they will call back with vascular surgery. [11:59] Discussed the case with Dr. Sousa, vascular surgeon from [facility], who reports there is only 50% stenosis and the patient does not need surgical treatment and can be medically treated with Plavix, aspirin, and statin. [12:05 ] Dr. Jamil, neurologist, would like to keep seeking transfer to either [facility] or [place]. [1305] Discussed the case with Dr. Jaffe, neurocrit from [facility], who accepted the patient for transfer. - Critical Care Time Critical Care Time: 75-104 min Critical Care Statement: Critical care time is provided exclusive of any time spent performing procedures. Discharge ED - Sign-Out/Discharge Documenting (check all that apply): Patient Departure - TRANSFER TO [facility] - Discharge Plan Condition: Stable Disposition: TRANS HIGHER LVL OF CARE FAC Referrals: Troy Torrse PA [Primary Care Provider] - - Billing Disposition and Condition Condition: STABLE Disposition: Trans Higher Lvl of Care Fac - Attestation Statements Document Initiated by Scribe: Yes Documenting Scribe: Cora Kowalski Provider For Whom Scribe is Documenting (Include Credential): Masood Fields MD Scribe Attestation: Cora Castro, scribed for Masood Fields MD on 10/18/19 at 1354. Scribe Documentation Reviewed: Yes Provider Attestation: The documentation as recorded by the Cora connolly accurately reflects the service I personally performed and the decisions made by , Masood Fields MD Status of Scribe Document: Viewed
[2019-10-18] MEDS ORDERED: Aspirin 81 mg CHEW TAB* 81 MG TAB.CHEW PO ONE (09:24)
[2019-10-18 09:30] LABS: Hematocrit 42 % (42-52); Hemoglobin 14.2 g/dL (14.0-18.0); Mean Corpuscular HGB Conc 34 g/dL (31-36); Mean Corpuscular Hemoglobin 31 pg (27-31); Mean Corpuscular Volume 93 fL (80-94); Mean Platelet Volume 8.1 fL (7.4-10.4); Platelet Count 546 10^3/uL (150-450); Red Blood Count 4.55 10^6 /uL (4.18-5.48); Red Cell Distribution Width 14 % (10-15); White Blood Count 31.5 10^3/uL (3.5-10.8)
[2019-10-18 09:31] LABS: ABS Eosinophils 0.4 10^3/ul (0-0.6); ABS Lymphocytes 1.7 10^3/ul (1.0-4.8); ABS Monocytes 1.3 10^3/ul (0-0.8); ABS Neutrophils 28.1 10^3/ul (1.5-7.7); Eosinophil % 1.4 %; Lymphocyte % 5.5 %
[2019-10-18 09:38] LABS: Activated Partial Thrombo Time 28.4 seconds (26.0-38.0); INR 0.94 (0.82-1.09)
[2019-10-18] MEDS ORDERED: Iodixanol* (CONTRAST) 320 MG/ML 100 ML SDV IV ONE (09:41)
[2019-10-18 09:51] LABS: Albumin 3.5 g/dL (3.2-5.2); Albumin/Globulin Ratio 1.1 (1-3); Calcium 8.4 mg/dL (8.6-10.3); Globulin 3.2 g/dL (2-4); HDL Cholesterol 49.7 mg/dL; Potassium 3.7 mmol/L (3.5-5.0); Total Bilirubin 0.4 mg/dL (0.2-1.0); Total Protein 6.7 g/dL (6.4-8.9)
[2019-10-18 10:15] LABS: BUN/Creatinine Ratio 36.7 (8-20); EGFR African American 103.1 (>60); EGFR Non-African American 85.2 (>60)
[2019-10-18] MEDS ORDERED: Cefepime 2 GM in Dextrose(*) 2 GM/50 ML BAG IV ONE (10:15)
[2019-10-18] MEDS ORDERED: Cefepime(*) 2 GM in NS 0.9% 50 ML* 50 ML IVPB ONE (11:00)
[2019-10-18 11:27] LABS: Urine Appearance Clear; Urine Bilirubin Negative (Negative); Urine Blood Negative (Negative); Urine Color Yellow; Urine Glucose Negative (Negative); Urine Ketones Negative (Negative); Urine Nitrite Negative (Negative); Urine Protein Negative (Negative); Urine Specific Gravity 1.023 (1.010-1.030); Urine Urobilinogen Negative (Negative)
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
[2019-10-18 14:27] VITALS: BP 113/70
== END 2019-10-18 14:24 | disposition short-term general hospital (02) ==
LOC: ED 08:45
DX: I63.9 Cerebral infarction, unspecified (principal); I65.29 Occlusion and stenosis of unspecified carotid artery; J18.9 Pneumonia, unspecified organism; R53.1 Weakness; R47.81 Slurred speech; E03.9 Hypothyroidism, unspecified; Z79.890 Hormone replacement therapy; Z79.899 Other long term (current) drug therapy; R05 Cough
CPT/HCPCS: 36415; 70450; 70496; 70498; 71045; 80053; 80061; 81003; 83605; 84484; 85025; 85610; 85730; 93005; 96361; 96365; 99285; A9270-GY; J0692; Q9967